=== PATIENT | female | born 1940 | race Caucasian/White ===

== ENCOUNTER 2016-08-07 18:46 | Inpatient (IN) ==
[2016-08-07] MEDS ORDERED: methylPREDNISolone 125 MG/2 ML VIAL IVP ONE (18:52)
[2016-08-07] MEDS ORDERED: Ipratropium/Albuterol Neb 3 ML IH ONE (18:52)
--- NOTE | 2016-08-07 18:58 | Emergency Department Note ---
Disposition Clinical Impression: Acute exacerbation of chronic obstructive airways disease Disposition: Admitted As Inpatient Condition: Fair Referrals: NO,PCP [Primary Care Provider] - Forms: ED Satisfaction Letter Time of Disposition: 20:44 SOB HPI - General Chief Complaint: ED Shortness of Breath/Dyspnea Stated Complaint: SHERLY/COUGH/CP Time Seen by Provider: 08/07/16 18:50 Nursing Notes Reviewed: Yes Vital Signs Reviewed: Yes - History of Present Illness 75-year-old female dependent on 2 L of oxygen, history of COPD presents with shortness of breath and chest pain she has been having symptoms for about a week , she reports worsening shortness of breath today at approximately 12:00. Patient reports wheezes, productive cough productive of green and yellow mucus. She has had intermittent subjective fevers at home as well. Patient is taking no antibiotics for infection. Pt Subjective Complaint: shortness of breath Onset (ago): week(s) (1) Context: recent illness Severity: moderate Consistency/Duration: intermittent Improves with: oxygen Worsens with: exertion, coughing Known history of: COPD Associated symptoms: Reports: chest pain, fever, cough, wheezing, sputum production, orthopnea Treatment prior to arrival: oxygen Cough present: Yes Cough Description: Voluntary Cough Frequency: Intermittent Sputum production: Yes Sputum Amount: Scant Sputum Color: Clear - Related Data Home oxygen amount: 2 liters Home Medications Medication Instructions Recorded Confirmed Albuterol Sulfate 2.5 mg PO TID 09/05/15 08/07/16 Albuterol Sulfate [Albuterol 2 puff IH Q4H PRN 09/05/15 08/07/16 Inhaler] Alendronate Sodium [Fosamax] 35 mg PO QWEEK 09/05/15 08/07/16 Amlodipine Besylate 2.5 mg PO DAILY 09/05/15 08/07/16 Atorvastatin [Lipitor] 10 mg PO HS 09/05/15 08/07/16 Benzocaine 20% [Orajel] 9 gm MM Q6H 09/05/15 08/07/16 Budesonide/Formoterol 160/4.5 2 puff IH BIDR 09/05/15 08/07/16 [Symbicort 160/4.5] Clobetasol Propionate 0.05% 1 appl TP BID 09/05/15 08/07/16 [Temovate] Cranberry 300 mg PO DAILY 09/05/15 08/07/16 Ergocalciferol (VITAMIN D2) 50,000 unit PO QWEEK 09/05/15 08/07/16 [Vitamin D2] Fenofibrate [Tricor] 54 mg PO DAILY 09/05/15 08/07/16 Furosemide [Lasix] 20 mg PO DAILY 09/05/15 08/07/16 Gabapentin [Neurontin] 100 mg PO TID 09/05/15 08/07/16 GlipiZIDE [Glucotrol] 2.5 mg PO DAILY 09/05/15 08/07/16 Hydrocodone/Acetaminophen [Sixes 1 tab PO Q6HR PRN 09/05/15 08/07/16 7.5-325 Tablet] Hydroxyzine HCl 25 mg PO TID 09/05/15 08/07/16 Isosorbide MONOnitrate [Isosorbide 60 mg PO DAILY 09/05/15 08/07/16 Mononitrate ER] Levothyroxine Sodium [Tirosint] 175 mcg PO DAILY 09/05/15 08/07/16 Metoprolol [Lopressor] 50 mg PO BID 09/05/15 08/07/16 Nitroglycerin [Nitrostat] 0.4 mg SL Q5-10MIN PRN 09/05/15 08/07/16 Nystatin SUSP [Mycostatin 4 ml PO QID 09/05/15 08/07/16 Suspension] Ondansetron HCl [Zofran] 4 mg PO Q8HR PRN 09/05/15 08/07/16 Pantoprazole Sodium [Protonix] 40 mg PO DAILY 09/05/15 08/07/16 Potassium Chloride [K-Tab ER] 20 meq PO BID 09/05/15 08/07/16 Primidone [Mysoline] 50 mg PO HS 09/05/15 08/07/16 Ranitidine HCl [Zantac] 150 mg PO BID 09/05/15 08/07/16 Sertraline HCl [Zoloft] 100 mg PO BID 09/05/15 08/07/16 Warfarin [Coumadin] 5 mg PO QWEEK MDD Wednesday09/05/15 08/07/16 Dicyclomine [Bentyl] 10 mg PO QID PRN 08/07/16 08/07/16 Oxygen 2 l .ROUTE AD 08/07/16 08/07/16 Warfarin [Coumadin] 2.5 mg PO 6XW MDD 08/07/16 08/07/16 SUN,MON,TUES,WED,THURS,SAT Previous Rx's Medication Instructions Recorded Loperamide [Imodium] 2 mg PO Q4HR PRN #18 capsule 09/05/15 Allergies Allergy/AdvReac Type Severity Reaction Status Date / Time aspirin AdvReac Anaphylaxis Verified 09/04/15 20:11 metoclopramide [From Reglan] AdvReac See Verified 09/04/15 20:11 Comments prednisone AdvReac See Verified 09/04/15 20:11 Comments Review of Systems: A 14 point ROS was obtained and was negative except as per below or as documented in the HPI. Constitutional: Denies: fever, chills, weakness, weight change Eyes: Denies: eye pain, eye discharge, vision change ENT: Denies: ear pain, throat pain, hearing loss, epistaxis, congestion, Cardiovascular: chest pain, Denies: palpitations, dyspnea on exertion, edema, syncope Respiratory: +cough, dyspnea, wheezes Denies: hemoptysis, stridor Gastrointestinal: Denies: abdominal pain, nausea, vomiting. diarrhea, constipation, hematemesis, hematochezia Genitourinary: Denies: urgency, dysuria, frequency, hematuria Musculoskeletal: Denies: back pain, neck pain, arthralgia, myalgia Integumentary: Denies: rash, abrasion, lesions Neurological: Denies: headache, weakness, numbness, paresthesias, confusion, abnormal gait Psychiatric: Denies: anxiety, depression, suicidal thoughts, homicidal thoughts , Endocrine: Denies: fatigue Hematological/Lymphatic: Denies: easy bleeding, easy bruising Allergic/Immunologic: Denies: facial swelling, urticaria All systems ED: reviewed and negative except as stated. Past Medical History - Past Medical History Attestation: Yes The following information was validated with the patient. Source: patient Medical history: Reports: diabetes, hypertension Psychiatric history: Reports: no psych history - Social History Smoking Status: Never smoker Smokeless Tobacco Status: No Alcohol use: Reports: none Drug use: Reports: none Physical Exam General: This is a pleasant elderly female who appears in mild to moderate respiratory distress, appears her stated age. Head: NCAT, no lesions Eyes: sclera anicteric, conjunctiva normal, PERRLA bilaterally, EOMI Bilaterally Ears: normal inspection, external ear wnl Nose: nasal septum nondeviated, sinuses nontender Throat: good dentition, mucous membranes moist Neck: no lymphadenopathy, trachea midline no deviation, no JVD Resp: diFuse coarse inspiratory and expiratory wheezes. CV: RRR, normal S1 and S2, no m/g/r, Pulses +2 Rad, +2 DP/PT Abdomen: Soft, NTND, no hepatosplenomegaly, no hernias, Negative Rovsing's sign , Negative Marroquin's sign Back: normal inspection, no tenderness to palpation, Negative CVA tenderness bilaterally Neuro: A&O3, CN II-XII grossly intact bilaterally, no motor or sensory deficits bilaterally, gait normal, GCS 15 [id number] Ext: normal inspection, symmetric Active and Passive ROM UE and LE bilaterally , no pedal edema bilaterally Psych: normal mood, normal affect Skin: No rashes, skin warm, dry, intact Course Course Narrative: 75-year-old female appears to be into P exacerbation, will check EKG troponin basic lab work chest x-ray do an absolute Medrol reassess - Reevaluation(s) Reevaluation #1: Admitted to Dr Girard, AECOPD in stable condition. Time: 20:42 Vital Signs Temperature 98.6 F 08/07/16 18:49 Pulse Rate 79 08/07/16 18:49 Respiratory Rate 20 08/07/16 18:49 Blood Pressure 188/91 08/07/16 18:49 O2 Sat by Pulse Oximetry 95 08/07/16 18:49 Temperature 98.6 F 08/07/16 18:49 Pulse Rate 79 08/07/16 18:49 Respiratory Rate 20 08/07/16 19:18 Blood Pressure 188/91 08/07/16 18:49 O2 Sat by Pulse Oximetry 99 08/07/16 19:18 Oxygen Delivery Oxygen Delivery Room Air Shortness of Breath/Dyspnea - [facility] Narrative Medical decision making narrative: 75-year-old female shortness breath wheezing for one week, admitted for acute exacerbation of COPD given decreased from function from her baseline, requiring more oxygen 3 L at home than her baseline 2 L, chest x-ray negative white blood count normal, lactate normal. Admitted to hospitalist Dr. Girard in stable condition - Differential Diagnosis Likely: acute exacerbation of chronic obstructive airways disease, congestive heart failure, pulmonary embolism - Medical Records Medical records reviewed: Yes I reviewed the patient's medical records. - Lab Data Lab results reviewed: Yes I reviewed the patient's lab results. Result diagrams: 08/07/16 19:14 08/07/16 19:14 Lab Results 08/07/16 08/07/16 08/07/16 Range/Units 19:14 19:14 19:14 WBC 5.0 (4.3-11.1) K/mcL RBC 4.20 (3.82-4.97) M/mcL Hgb 12.3 (11.5-15.4) g/dL Hct 37.8 (35.3-44.9) % MCV 90.0 (83.0-100.0) fL MCH 29.3 (28.0-33.3) pg MCHC 32.5 (31.6-35.5) g/dL RDW 14.5 (11.5-14.5) % Plt Count 117 L (140-400) K/mcL MPV 9.5 (9.4-12.4) fL Immature Gran % 0.6 (0-4) % Seg Neutrophils % 57.7 % Lymphocytes % 34.7 % Monocytes % 4.4 % Eosinophils % 2.4 % Basophils % 0.2 % Neutrophils # 2.9 (1.6-8.9) K/mcL Lymphocytes # 1.7 (0.6-4.6) K/mcL Monocytes # 0.2 (0.0-1.3) K/mcL Eosinophils # 0.1 (0.0-0.6) K/mcL Basophils # 0.0 (0.0-0.2) K/mcL Immature Plt Fraction 2.5 (1.1-6.1) % PT 21.2 H (9.4-12.1) Seconds INR 1.9 Sodium 140 (136-145) mEq/L Potassium 3.6 (3.5-4.5) mEq/L Chloride 103 (98-109) mEq/L Carbon Dioxide 26 (19-29) mEq/L BUN 11 (7-20) mg/dL Creatinine 0.71 (0.57-1.11) mg/dL Est GFR ( Amer) > 60 (> 60) Est GFR (Non-Af Amer) > 60 (> 60) BUN/Creatinine Ratio 15 (6-26) Glucose 134 H (70-99) mg/dL Calculated Osmolality 291 (280-300) Lactic Acid (0.5-2.2) mmol/L Calcium 9.2 (8.6-10.8) mg/dL Troponin I (0-0.03) ng/mL B-Natriuretic Peptide (0-100) pg/mL 08/07/16 08/07/16 08/07/16 Range/Units 19:14 19:14 19:14 WBC (4.3-11.1) K/mcL RBC (3.82-4.97) M/mcL Hgb (11.5-15.4) g/dL Hct (35.3-44.9) % MCV (83.0-100.0) fL MCH (28.0-33.3) pg MCHC (31.6-35.5) g/dL RDW (11.5-14.5) % Plt Count (140-400) K/mcL MPV (9.4-12.4) fL Immature Gran % (0-4) % Seg Neutrophils % % Lymphocytes % % Monocytes % % Eosinophils % % Basophils % % Neutrophils # (1.6-8.9) K/mcL Lymphocytes # (0.6-4.6) K/mcL Monocytes # (0.0-1.3) K/mcL Eosinophils # (0.0-0.6) K/mcL Basophils # (0.0-0.2) K/mcL Immature Plt Fraction (1.1-6.1) % PT (9.4-12.1) Seconds INR Sodium (136-145) mEq/L Potassium (3.5-4.5) mEq/L Chloride (98-109) mEq/L Carbon Dioxide (19-29) mEq/L BUN (7-20) mg/dL Creatinine (0.57-1.11) mg/dL Est GFR ( Amer) (> 60) Est GFR (Non-Af Amer) (> 60) BUN/Creatinine Ratio (6-26) Glucose (70-99) mg/dL Calculated Osmolality (280-300) Lactic Acid 1.5 (0.5-2.2) mmol/L Calcium (8.6-10.8) mg/dL Troponin I 0.00 (0-0.03) ng/mL B-Natriuretic Peptide 115 H (0-100) pg/mL - Radiology Data Radiology results reviewed: Yes I reviewed the patient's radiology results. Chest X-Ray 08/07/16 18:52 IMPRESSION: No acute cardiopulmonary disease. D/ / 08/07/2016 19:28:39 Ruben Bradshaw MD / [facility] Interpreting Provider: Ruben Bradshaw MD - EKG Data EKG attestation: Yes I reviewed and interpreted this EKG. EKG shows normal: Reports: sinus rhythm (60 bpm DC 141 QRS 90 QTc 425 to continue with elevations or depressions.) Rate: Reports: normal Rhythm: Reports: NSR Interpretation: Reports: unchanged when compared to prior tracing (date) ( Previous EKG 06/2015) - Core Measures AMI Core Measures Followed: No Measure Exclusions: contraindicated (Anaphylactic reaction to aspirin.) Attestation Statement - Attestation Attestation: I examined this patient and my medical decision-making was reviewed with the NETWORK STRATEGIST/PA/Advanced Practice Nurse/Resident Physician. I agree with the documented findings, disposition and treatment plan as described except to the extent set forth below. Patient to the emergency department with a chief complaint of difficulty in breathing. Transfer from urgent care. Has been coughing and not feeling well. Has some pain in her upper chest. Sent for evaluation. Exam shows her awake and alert. Diffuse expiratory wheezing. No reproducible pain in her chest. Abdomen soft. Plan. Nebs and steroids. Chest x-ray and cardiac workup.
[2016-08-07 19:29] LABS: Basophils % 0.2 %; Eosinophils # 0.1 K/mcL (0.0-0.6); Eosinophils % 2.4 %; Hematocrit 37.8 % (35.3-44.9); Hemoglobin 12.3 g/dL (11.5-15.4); Immature Granulocytes % 0.6 % (0-4); Immature Platelets 2.5 % (1.1-6.1); Lymphocytes # 1.7 K/mcL (0.6-4.6); Lymphocytes % 34.7 %; Mean Corpuscular HGB Conc 32.5 g/dL (31.6-35.5); Mean Corpuscular Hemoglobin 29.3 pg (28.0-33.3); Mean Platelet Volume 9.5 fL (9.4-12.4); Monocytes # 0.2 K/mcL (0.0-1.3); Monocytes % 4.4 %; Neutrophils # 2.9 K/mcL (1.6-8.9); Platelet Count 117 K/mcL (140-400); Red Cell Distribution Width 14.5 % (11.5-14.5); Segmented Neutrophils % 57.7 %
[2016-08-07 19:35] LABS: INR 1.9; Prothrombin Time 21.2 Seconds (9.4-12.1)
[2016-08-07 19:43] LABS: BUN/Creatinine Ratio 15 (6-26); Blood Urea Nitrogen 11 mg/dL (7-20); Calcium 9.2 mg/dL (8.6-10.8); Carbon Dioxide 26 mEq/L (19-29); Chloride 103 mEq/L (98-109); Glucose 134 mg/dL (70-99); Osmolality,Calculated 291 (280-300); Potassium 3.6 mEq/L (3.5-4.5); Sodium 140 mEq/L (136-145); eGFR For African Americans > 60 (> 60); eGFR For Non-African Americans > 60 (> 60)
[2016-08-07] MEDS ORDERED: Albuterol 2.5 MG/3 ML NEBULIZER IH PRN (22:00)
[2016-08-07] MEDS ORDERED: Nitroglycerin 0.4 MG TAB.SUBL SL PRN (22:01)
[2016-08-07] MEDS ORDERED: Acetaminophen 325 MG TABLET PO PRN (22:08)
[2016-08-07] MEDS ORDERED: Ondansetron ODT 4 MG TAB.RAPDIS SL PRN (22:08)
[2016-08-07] MEDS ORDERED: Naloxone 0.4 MG/ML INJ IVP PRN (22:08)
[2016-08-07] MEDS ORDERED: Ondansetron 4 MG/2 ML VIAL IVP PRN (22:08)
[2016-08-07] MEDS: *HR* HYDROcodone/Acet 7.5/325 mg TABLET PO PRN (22:55)
--- NOTE | 2016-08-07 22:55 | Internal Med History&Physical ---
Date of Encounter: 08/07/16 Time of Encounter: 21:55 Internal Medicine - H&P: HPI Chief complaint: Shortness of breath, cough x 2 weeks Admitted From: Emergency Dept Plans for Post Hospital Care: Home History of present illness: Ms. Trinidad is a 75 year old female with oxygen-dependent copd, using home oxygen 2L/min was brought in by her family for evaluation of progressive shortness o breath of 2 weeks duration. No associated fever, chills and rigors. She is presentating now because the past 2 days, she could barely breath , work of breathing is taking its toll on her. She reports wheezing, and a productive cough of initially clear but now greenish-yellow. No sore throat or glandular enlargement in the neckShe has not taken any antibiotic. She is uptodate with influenza and pneumococcal vaccination. No sick contact, no recent travel. She is FULL CODE as per discussion. She nominates her , Temo Trinidad ([phone]) as her NOK/POA. Medical history: Reports: diabetes, hypertension, HLD, CAD, GERD, YOMI, DVT/PE, depression, osteoporosis Past surgical hx: total thyroidectomy on thyroxine replacement. Psychiatric history: Reports: no psych history Smoking Status: Never smoker Smokeless Tobacco Status: No Alcohol use: Reports: none Drug use: Reports: none Family hx: HTN, DM2. ROS: A 10-point ROS was performed, postives and relevant negatives are detailed , system-symptom not mentioned is assumed negative unless otherwise stated. Vital Signs Temperature 98.6 F 08/07/16 18:49 Pulse Rate 79 08/07/16 18:49 Respiratory Rate 20 08/07/16 18:49 Blood Pressure 188/91 08/07/16 18:49 O2 Sat by Pulse Oximetry 95 08/07/16 18:49 Temperature 98.6 F 08/07/16 18:49 Pulse Rate 79 08/07/16 18:49 Respiratory Rate 20 08/07/16 19:18 Blood Pressure 188/91 08/07/16 18:49 O2 Sat by Pulse Oximetry 99 08/07/16 19:18 Not pale, anicteric, afebrile, acyanotic,in some respiratory distress evident in tachypnea, inability to speak in full sentences. Morbidly obese. Moist mucosa, not pale, anicteric, afebrile, acyanotic. Trachea is central, no subcutaneous emphysema. No cervical or jugular enlargement. Chest: Scattered expiratory wheezing, left basilar crackles posterior. Heart: RRR, HS1/2, systolic murmur, aortic. Abdomen: obese, non-distended, soft, non-tender,no masses. STATE ASSESSED PROPERTIES DIRECTOR: AAO X 3, no gross focal neurological deficits. Skin: No active skin lesion Extremities: Trace pedal edema, normal pedal pulses, no calf tenderness. There is scaly skin lesions of both fet. consistent with stasis dermatitis. 08/07/16 08/07/16 08/07/16 Range/Units 19:14 19:14 19:14 WBC 5.0 (4.3-11.1) K/mcL RBC 4.20 (3.82-4.97) M/mcL Hgb 12.3 (11.5-15.4) g/dL Hct 37.8 (35.3-44.9) % MCV 90.0 (83.0-100.0) fL MCH 29.3 (28.0-33.3) pg MCHC 32.5 (31.6-35.5) g/dL RDW 14.5 (11.5-14.5) % Plt Count 117 L (140-400) K/mcL MPV 9.5 (9.4-12.4) fL Immature Gran % 0.6 (0-4) % Seg Neutrophils % 57.7 % Lymphocytes % 34.7 % Monocytes % 4.4 % Eosinophils % 2.4 % Basophils % 0.2 % Neutrophils # 2.9 (1.6-8.9) K/mcL Lymphocytes # 1.7 (0.6-4.6) K/mcL Monocytes # 0.2 (0.0-1.3) K/mcL Eosinophils # 0.1 (0.0-0.6) K/mcL Basophils # 0.0 (0.0-0.2) K/mcL Immature Plt Fraction 2.5 (1.1-6.1) % PT 21.2 H (9.4-12.1) Seconds INR 1.9 Sodium 140 (136-145) mEq/L Potassium 3.6 (3.5-4.5) mEq/L Chloride 103 (98-109) mEq/L Carbon Dioxide 26 (19-29) mEq/L BUN 11 (7-20) mg/dL Creatinine 0.71 (0.57-1.11) mg/dL Est GFR ( Amer) > 60 (> 60) Est GFR (Non-Af Amer) > 60 (> 60) BUN/Creatinine Ratio 15 (6-26) Glucose 134 H (70-99) mg/dL Calculated Osmolality 291 (280-300) Lactic Acid (0.5-2.2) mmol/L Calcium 9.2 (8.6-10.8) mg/dL Troponin I (0-0.03) ng/mL B-Natriuretic Peptide (0-100) pg/mL 08/07/16 08/07/16 08/07/16 Range/Units 19:14 19:14 19:14 WBC (4.3-11.1) K/mcL RBC (3.82-4.97) M/mcL Hgb (11.5-15.4) g/dL Hct (35.3-44.9) % MCV (83.0-100.0) fL MCH (28.0-33.3) pg MCHC (31.6-35.5) g/dL RDW (11.5-14.5) % Plt Count (140-400) K/mcL MPV (9.4-12.4) fL Immature Gran % (0-4) % Seg Neutrophils % % Lymphocytes % % Monocytes % % Eosinophils % % Basophils % % Neutrophils # (1.6-8.9) K/mcL Lymphocytes # (0.6-4.6) K/mcL Monocytes # (0.0-1.3) K/mcL Eosinophils # (0.0-0.6) K/mcL Basophils # (0.0-0.2) K/mcL Immature Plt Fraction (1.1-6.1) % PT (9.4-12.1) Seconds INR Sodium (136-145) mEq/L Potassium (3.5-4.5) mEq/L Chloride (98-109) mEq/L Carbon Dioxide (19-29) mEq/L BUN (7-20) mg/dL Creatinine (0.57-1.11) mg/dL Est GFR ( Amer) (> 60) Est GFR (Non-Af Amer) (> 60) BUN/Creatinine Ratio (6-26) Glucose (70-99) mg/dL Calculated Osmolality (280-300) Lactic Acid 1.5 (0.5-2.2) mmol/L Calcium (8.6-10.8) mg/dL Troponin I 0.00 (0-0.03) ng/mL B-Natriuretic Peptide 115 H (0-100) pg/mL Chest X-Ray No acute cardiopulmonary disease. EKG: NSR, normal EKG. imp COPD EXACERBATION Acute on chronic respiratory failure Chronic morbidities. Oxygen-dependent COPD. HTN DM2 Hypothroidism Osteoporosis Chronic stasis dermatitis Depression Morbid obesity. Chronic aticoagualtion with wARFARN FOR DVT/PE history plan standard COPD care business services coordinator and pT CONSULT for discharge planning. On coumadin for hx of DVT/PE. GI prophylaxis with protonix Add low dose insulin sliding scale. Continue other medication of chronic morbidities. Past Med Surg Social Fam HX - Past Medical History Medical history: COPD, diabetes, hypertension, other Psychiatric history: no psych history - Past Surgical History Surgical History: appendectomy, cholecystectomy, hysterectomy - Social History Smoking Status: Never smoker Smokeless Tobacco Status: No Alcohol use: none Drug use: none - Family History Father Adopted: [place]: STEVEN Family Member Ethnicity: Non- Living Status: Age at : 72 Cause of : PROSTATE CA Hx Family Cardiac Disorders: Yes (NC) Hx Family Respiratory Disorders: Yes (Emphysema) Hx Family Cancer: Yes Hx Family GI Disorders: No Hx Family Endocrine Disorder: Yes (DM) Hx Family Neuromuscular Disorders: No Hx Family Neurologic Disorders: No Hx Family HEENT Disorders: No Hx Family Autoimmune Disorders: No Internal Medicine - H&P: Meds Albuterol Sulfate 2.5 mg PO TID 09/05/15 [History] Albuterol Sulfate [Albuterol Inhaler] 2 puff IH Q4H PRN 09/05/15 [History] Alendronate Sodium [Fosamax] 35 mg PO QWEEK 09/05/15 [History] Amlodipine Besylate 2.5 mg PO DAILY 09/05/15 [History] Atorvastatin [Lipitor] 10 mg PO HS 09/05/15 [History] Benzocaine 20% [Orajel] 9 gm MM Q6H 09/05/15 [History] Budesonide/Formoterol 160/4.5 [Symbicort 160/4.5] 2 puff IH BIDR 09/05/15 [ History] Clobetasol Propionate 0.05% [Temovate] 1 appl TP BID 09/05/15 [History] Cranberry 300 mg PO DAILY 09/05/15 [History] Ergocalciferol (VITAMIN D2) [Vitamin D2] 50,000 unit PO QWEEK 09/05/15 [History] Fenofibrate [Tricor] 54 mg PO DAILY 09/05/15 [History] Furosemide [Lasix] 20 mg PO DAILY 09/05/15 [History] Gabapentin [Neurontin] 100 mg PO TID 09/05/15 [History] GlipiZIDE [Glucotrol] 2.5 mg PO DAILY 09/05/15 [History] Hydrocodone/Acetaminophen [[place] 7.5-325 Tablet] 1 tab PO Q6HR PRN 09/05/15 [ History] Hydroxyzine HCl 25 mg PO TID 09/05/15 [History] Isosorbide MONOnitrate [Isosorbide Mononitrate ER] 60 mg PO DAILY 09/05/15 [ History] Levothyroxine Sodium [Tirosint] 175 mcg PO DAILY 09/05/15 [History] Loperamide [Imodium] 2 mg PO Q4HR PRN #18 capsule 09/05/15 [Rx] Metoprolol [Lopressor] 50 mg PO BID 09/05/15 [History] Nitroglycerin [Nitrostat] 0.4 mg SL Q5-10MIN PRN 09/05/15 [History] Nystatin SUSP [Mycostatin Suspension] 4 ml PO QID 09/05/15 [History] Ondansetron HCl [Zofran] 4 mg PO Q8HR PRN 09/05/15 [History] Pantoprazole Sodium [Protonix] 40 mg PO DAILY 09/05/15 [History] Potassium Chloride [K-Tab ER] 20 meq PO BID 09/05/15 [History] Primidone [Mysoline] 50 mg PO HS 09/05/15 [History] Ranitidine HCl [Zantac] 150 mg PO BID 09/05/15 [History] Sertraline HCl [Zoloft] 100 mg PO BID 09/05/15 [History] Warfarin [Coumadin] 5 mg PO QWEEK MDD Wednesday09/05/15 [History] Dicyclomine [Bentyl] 10 mg PO QID PRN 08/07/16 [History] Oxygen 2 l .ROUTE AD 08/07/16 [History] Warfarin [Coumadin] 2.5 mg PO 6XW MDD SUN,MON,TU,WED,THURS,SAT 08/07/16 [ History] Allergies aspirin Adverse Reaction (Verified 09/04/15 20:11) Anaphylaxis metoclopramide [From Reglan] Adverse Reaction (Verified 09/04/15 20:11) See Comments prednisone Adverse Reaction (Verified 09/04/15 20:11) See Comments All Systems PM: A 10-system review of systems was performed and is negative for pertinent findings except as documented above in the HPI. - Constitutional Vitals: Temp Pulse Resp BP Pulse Ox 98.1 F 85 18 122/61 98 08/07/16 21:46 08/07/16 21:46 08/07/16 21:46 08/07/16 21:46 08/07/16 21:46 Internal Med - H&P Results - Labs CBC & Chem 7: 08/07/16 19:14 08/07/16 19:14 - VTE Reasons for not Prescribing Prophylaxis: Not indicated-Anticoagulated or INR therapeutic
[2016-08-07] MEDS: Benzocaine 20% 9 GM GEL..GRAM. MM SCH (22:57)
[2016-08-07] MEDS ORDERED: *HR* Dextrose 50 % in Water (Syg) 50 ML SYRINGE IVP PRN (22:59)
[2016-08-07] MEDS ORDERED: Dextrose Gel 15 GM PO PRN ×2 (22:59)
[2016-08-07] MEDS ORDERED: D5% in Water 1,000 ML IV PRN (22:59)
[2016-08-07] MEDS: Ipratropium/Albuterol Neb 3 ML IH SCH (23:26)
[2016-08-07] MEDS ORDERED: *HR* Warfarin 5 MG TABLET PO SCH (23:45)
[2016-08-07] MEDS: MethylPREDNISolone 40 MG/ML VIAL IVP SCH (23:54)
[2016-08-08] MEDS: Ipratropium/Albuterol Neb 3 ML IH SCH ×4 (04:26→22:53)
[2016-08-08 04:32] LABS: INR 1.8; Prothrombin Time 19.7 Seconds (9.4-12.1)
[2016-08-08] MEDS: Benzocaine 20% 9 GM GEL..GRAM. MM SCH ×4 (05:51→23:39)
[2016-08-08] MEDS: Isosorbide MONOnitrate (24 HR) 60 MG TAB.ER.24H PO SCH (07:58)
[2016-08-08] MEDS: Furosemide 20 MG TABLET PO SCH (07:58)
[2016-08-08] MEDS: Fenofibrate 54 MG TABLET PO SCH (07:59)
[2016-08-08] MEDS: Gabapentin 100 MG CAPSULE PO SCH ×3 (07:59→19:59)
[2016-08-08] MEDS: Famotidine 20 MG TABLET PO SCH ×2 (07:59→19:59)
[2016-08-08] MEDS: *HR* GlipiZIDE 5 MG TABLET PO SCH (07:59)
[2016-08-08] MEDS: amLODIPine 5 MG TABLET PO SCH (08:00)
[2016-08-08] MEDS: hydrOXYzine pamoate 25 MG CAPSULE PO SCH ×3 (08:00→19:59)
[2016-08-08] MEDS: Insulin LISPRO 300 UNITS/3 ML VIAL SQ SCH ×3 (08:01→17:06)
[2016-08-08] MEDS: MethylPREDNISolone 40 MG/ML VIAL IVP SCH ×3 (08:01→23:32)
[2016-08-08] MEDS: Nystatin SUSP 5 ML UD.LIQ PO SCH ×4 (08:02→20:00)
[2016-08-08] MEDS: Budesonide/Formoterol 160/4.5 MDI IH SCH ×2 (08:15→22:55)
[2016-08-08] MEDS: *HR* HYDROcodone/Acet 7.5/325 mg TABLET PO PRN ×2 (11:46→17:44)
--- NOTE | 2016-08-08 14:10 | Internal Med Progress Note ---
Date of Encounter: 08/08/16 Time of Encounter: 14:08 - Assessment and plan (1) Acute exacerbation of chronic obstructive airways disease Current Visit: Yes Status: Acute Assessment and plan: Acute on chronic respiratory failure secondary to acute COPD exacerbation due to bacterial bronchitis Continue Rocephin and Solu-Medrol, duo nebs and oxygen therapy (2) Chronic respiratory failure Current Visit: No Status: Chronic Qualifiers: Respiratory failure complication: unspecified whether with hypoxia or hypercapnia Qualified Code(s): J96.10 - Chronic respiratory failure, unspecified whether with hypoxia or hypercapnia (3) Diabetes mellitus type 2, noninsulin dependent Current Visit: No Status: Chronic Assessment and plan: Continue insulin sliding scale and glipizide (4) History of DVT (deep vein thrombosis) Current Visit: No Status: Chronic Assessment and plan: Continue Coumadin and recheck INR in the morning (5) Hypertension, essential Current Visit: No Status: Chronic Assessment and plan: Stable High risk due to respiratory failure - Time Spent With Patient Greater than 35 minutes - Subjective Interval history: The patient is feeling less short of breath, denies any chest pain as it was before, no fevers overnight, no abdominal pain, no dysuria. No diarrhea - Constitutional Vitals: Temp Pulse Resp BP Pulse Ox 98.3 F 92 16 131/63 94 L 08/08/16 11:07 08/08/16 11:07 08/08/16 11:07 08/08/16 11:07 08/08/16 11:07 General appearance: Present: A&O X 3, obese - Head Head exam: Present: atraumatic, normocephalic - Eye Eye exam: Present: PERRL, conjuntiva pink, sclera anicteric Pupils: Present: PERRL - Neck Neck exam general surgery: Present: supple, trachea midline. Absent: lymphadenopathy - Respiratory Respiratory exam: Present: CTAB, wheezes (Mild diffuse wheezing). Absent: accessory muscle use, rales, rhonchi - Cardiovascular Cardiovascular exam: Present: RRR, +S1, +S2. Absent: diastolic murmur, gallop, rubs, systolic murmur - GI/Abdominal GI/Abdominal exam: Present: normal bowel sounds, soft, no peritoneal signs. Absent: distended, tenderness - Extremities Exam Extremities exam: Present: warm, radial pulses palpable and symetrical. Absent : calf tenderness, cyanotic, pedal edema - Neurological Exam Neurological exam: Present: CN II-XII intact, oriented X3, no focal deficits. Absent: pronater drift, facial droop, speech deficit - Skin Skin exam: Present: dry, intact Internal Medicine: Result - Labs CBC & Chem 7: 08/07/16 19:14 08/07/16 19:14 - ABG Interpretation ABG results: PT/INR, D-dimer PT 19.7 Seconds (9.4-12.1) H 08/08/16 03:49 - VTE Reasons for not Prescribing Prophylaxis: Not indicated-Anticoagulated or INR therapeutic Consult Discharge Plan - Plan Referrals: Jermain Mtz MD [Primary Care Provider] -
[2016-08-08] MEDS ORDERED: *HR* Warfarin 2.5 MG TABLET PO SCH (18:00)
[2016-08-08] MEDS ORDERED: Primidone 50 MG TABLET PO SCH (21:00)
[2016-08-08] MEDS ORDERED: Insulin LISPRO 300 UNITS/3 ML VIAL SQ SCH (21:00)
[2016-08-09 03:14] LABS: INR 2.2; Prothrombin Time 24.5 Seconds (9.4-12.1)
[2016-08-09] MEDS: Ipratropium/Albuterol Neb 3 ML IH SCH ×2 (05:06→11:27)
[2016-08-09] MEDS: Benzocaine 20% 9 GM GEL..GRAM. MM SCH ×2 (05:33→08:30)
[2016-08-09] MEDS: Insulin LISPRO 300 UNITS/3 ML VIAL SQ SCH ×2 (08:26→11:52)
[2016-08-09] MEDS: MethylPREDNISolone 40 MG/ML VIAL IVP SCH (08:26)
[2016-08-09] MEDS: Fenofibrate 54 MG TABLET PO SCH (08:27)
[2016-08-09] MEDS: amLODIPine 5 MG TABLET PO SCH (08:27)
[2016-08-09] MEDS: Nystatin SUSP 5 ML UD.LIQ PO SCH ×2 (08:27→11:52)
[2016-08-09] MEDS: Famotidine 20 MG TABLET PO SCH (08:28)
[2016-08-09] MEDS: Furosemide 20 MG TABLET PO SCH (08:28)
[2016-08-09] MEDS: *HR* GlipiZIDE 5 MG TABLET PO SCH (08:28)
[2016-08-09] MEDS: Isosorbide MONOnitrate (24 HR) 60 MG TAB.ER.24H PO SCH (08:28)
[2016-08-09] MEDS: hydrOXYzine pamoate 25 MG CAPSULE PO SCH (08:28)
[2016-08-09] MEDS: Gabapentin 100 MG CAPSULE PO SCH (08:28)
[2016-08-09] MEDS: *HR* HYDROcodone/Acet 7.5/325 mg TABLET PO PRN (10:19)
[2016-08-09 11:02] VITALS: BP 128/77
[2016-08-09] MEDS: Budesonide/Formoterol 160/4.5 MDI IH SCH (11:28)
--- NOTE | 2016-08-09 13:13 | Discharge Summary ---
Date of Encounter: 08/09/16 Time of Encounter: 13:13 - Discharge Diagnosis (1) Acute exacerbation of chronic obstructive airways disease Priority: Primary Status: Acute Comments: Acute on chronic respiratory failure secondary to acute COPD exacerbation due to bacterial bronchitis (2) Chronic respiratory failure Priority: Primary Status: Chronic Qualifiers: Respiratory failure complication: unspecified whether with hypoxia or hypercapnia Qualified Code(s): J96.10 - Chronic respiratory failure, unspecified whether with hypoxia or hypercapnia (3) Diabetes mellitus type 2, noninsulin dependent Priority: Secondary Status: Chronic (4) History of DVT (deep vein thrombosis) Priority: Secondary Status: Chronic (5) Hypertension, essential Priority: Secondary Status: Chronic - Discharge Medications Prescriptions: Amoxicillin/Clavulanate [Augmentin] 875 mg PO BIDWM #12 tablet Furosemide [Lasix] 40 mg PO DAILY #30 tablet PredniSONE 10 mg PO DAILY 18 Days Home Medications: Albuterol Sulfate 2.5 mg PO TID 09/05/15 [History] Albuterol Sulfate [Albuterol Inhaler] 2 puff IH Q4H PRN 09/05/15 [History] Alendronate Sodium [Fosamax] 35 mg PO QWEEK 09/05/15 [History] Amlodipine Besylate 2.5 mg PO DAILY 09/05/15 [History] Atorvastatin [Lipitor] 10 mg PO HS 09/05/15 [History] Benzocaine 20% [Orajel] 9 gm MM Q6H 09/05/15 [History] Budesonide/Formoterol 160/4.5 [Symbicort 160/4.5] 2 puff IH BIDR 09/05/15 [ History] Clobetasol Propionate 0.05% [Temovate] 1 appl TP BID 09/05/15 [History] Cranberry 300 mg PO DAILY 09/05/15 [History] Ergocalciferol (VITAMIN D2) [Vitamin D2] 50,000 unit PO QWEEK 09/05/15 [History] Fenofibrate [Tricor] 54 mg PO DAILY 09/05/15 [History] Gabapentin [Neurontin] 100 mg PO TID 09/05/15 [History] GlipiZIDE [Glucotrol] 2.5 mg PO DAILY 09/05/15 [History] Hydrocodone/Acetaminophen [[place] 7.5-325 Tablet] 1 tab PO Q6HR PRN 09/05/15 [ History] Hydroxyzine HCl 25 mg PO TID 09/05/15 [History] Isosorbide MONOnitrate [Isosorbide Mononitrate ER] 60 mg PO DAILY 09/05/15 [ History] Levothyroxine Sodium [Tirosint] 175 mcg PO DAILY 09/05/15 [History] Loperamide [Imodium] 2 mg PO Q4HR PRN #18 capsule 09/05/15 [Rx] Metoprolol [Lopressor] 50 mg PO BID 09/05/15 [History] Nitroglycerin [Nitrostat] 0.4 mg SL Q5-10MIN PRN 09/05/15 [History] Nystatin SUSP [Mycostatin Suspension] 4 ml PO QID 09/05/15 [History] Ondansetron HCl [Zofran] 4 mg PO Q8HR PRN 09/05/15 [History] Pantoprazole Sodium [Protonix] 40 mg PO DAILY 09/05/15 [History] Potassium Chloride [K-Tab ER] 20 meq PO BID 09/05/15 [History] Primidone [Mysoline] 50 mg PO HS 09/05/15 [History] Ranitidine HCl [Zantac] 150 mg PO BID 09/05/15 [History] Sertraline HCl [Zoloft] 100 mg PO BID 09/05/15 [History] Warfarin [Coumadin] 5 mg PO QWEEK MDD Wednesday09/05/15 [History] Dicyclomine [Bentyl] 10 mg PO QID PRN 08/07/16 [History] Oxygen 2 l .ROUTE AD 08/07/16 [History] Warfarin [Coumadin] 2.5 mg PO 6XW MDD SUN,MON,,WED,TH,SAT 08/07/16 [ History] Amoxicillin/Clavulanate [Augmentin] 875 mg PO BIDWM #12 tablet 08/09/16 [Rx] Furosemide [Lasix] 40 mg PO DAILY #30 tablet 08/09/16 [Rx] PredniSONE 10 mg PO DAILY 18 Days 08/09/16 [Rx] Allergies/Adverse Reactions: Allergies aspirin Adverse Reaction (Verified 09/04/15 20:11) Anaphylaxis metoclopramide [From Reglan] Adverse Reaction (Verified 09/04/15 20:11) See Comments prednisone Adverse Reaction (Verified 09/04/15 20:11) See Comments Date of admission: 08/07/16 22:08 Primary care physician: Jermain Mtz MD - Patient Status Disposition: Home, Self-Care Condition: Good Overall status at discharge: patient is progressing back to baseline - Discharge Instructions Follow Up With: Jermain Mtz MD [Primary Care Provider] - Additional Instructions: Follow-up with primary care physician within the next 7 days. Complete 6 more days of Augmentin and taper prednisone. Increase dose of Lasix to 40 mg daily - Diet and Activity Activity: wear oxygen at all times Diet: diabetic diet Hospital course: Ms. Trinidad is a 75 year old female with past medical history of diabetes not insulin-dependent, hypertension, HLD, CAD, GERD, YOMI, DVT/PE, depression, osteoporosis oxygen-dependent copd, using home oxygen 2L/min was brought in by her family for evaluation of progressive shortness o breath of 2 weeks duration prior to admission. No associated fever, chills and rigors. She could barely breath, work of breathing is taking its toll on her. She reports wheezing, and a productive cough of initially clear but now greenish-yellow. No sore throat or glandular enlargement in the neckShe has not taken any antibiotic. She is uptodate with influenza and pneumococcal vaccination. Upon admission she was started on Solu-Medrol and Rocephin was added. Patient feels better at the moment is bringing up less phlegm. Her INR was subtherapeutic at 1.9, then 1.8 and today is 2.2. She will be discharged on a prednisone taper and Augmentin. The patient's Lasix will be increased up to 40 mg daily - Time Spent with Patient Total time spent providing and/or coordinating discharge services: Greater than 30 minutes - Constitutional Vitals: Temp Pulse Resp BP Pulse Ox 97.6 F 75 22 128/77 95 08/09/16 10:56 08/09/16 10:56 08/09/16 11:28 08/09/16 10:56 08/09/16 11:28 General appearance: Present: A&O X 3, obese - Head Head exam: Present: atraumatic, normocephalic - Eye Eye exam: Present: PERRL, conjuntiva pink, sclera anicteric Pupils: Present: PERRL - Neck Neck exam general surgery: Present: supple, trachea midline. Absent: lymphadenopathy - Respiratory Respiratory exam: Present: CTAB, rales (Fine bibasilar crackles). Absent: accessory muscle use, rhonchi, wheezes - Cardiovascular Cardiovascular exam: Present: RRR, +S1, +S2. Absent: diastolic murmur, gallop, rubs, systolic murmur - GI/Abdominal GI/Abdominal exam: Present: normal bowel sounds, soft, no peritoneal signs. Absent: distended, tenderness - Extremities Exam Extremities exam: Present: pedal edema (+ 1 nonpitting edema both lower extremities), warm, radial pulses palpable and symetrical. Absent: calf tenderness, cyanotic - Neurological Exam Neurological exam: Present: CN II-XII intact, oriented X3, no focal deficits. Absent: pronater drift, facial droop, speech deficit - Skin Skin exam: Present: dry, intact - VTE Reasons for not Prescribing Prophylaxis: Not indicated-Anticoagulated or INR therapeutic
[2016-08-09] MEDS ORDERED: predniSONE 20 MG TABLET PO ONE (13:24)
--- NOTE | 2016-08-10 12:12 | Electrocardiograph Report ---
[facility] Test Date: 2016-08-07 Pat Name: Jennifer Trinidad Department: 3501 Room: 3B44 Gender: F Ip Counsel: : 1940 Requested By: Uziel Lomas Order Number: [id number] Reading MD: Edmund Kaye DO Measurements Intervals Sod Rate: 68 P: -4 [place]: 146 QRS: -21 QRSD: 86 T: 17 QT: 409 QTc: 427 Interpretive Statements Sinus rhythm Leftward axis Possible left ventricular hypertrophy Electronically Signed On 08-10-16 12:11:35 EST by Edmund Kaye DO
== END 2016-08-09 14:42 | disposition home or self-care (01) | DRG 190 ==
LOC: 3BNU 18:46 → EMEROO 18:46 → 3BNU 21:07 → SUATTDRO 22:08
PROVIDERS: ADMIT Internal Medicine; ATTEND Internal Medicine

== ENCOUNTER 2018-02-08 09:55 | Inpatient (IN) ==
[2018-02-08] MEDS ORDERED: methylPREDNISolone 125 MG/2 ML VIAL IVP ONE (10:02)
[2018-02-08] MEDS: Ipratropium/Albuterol Neb 3 ML IH ONE ×2 (10:09→10:56)
[2018-02-08] MEDS: 0.9 % Sodium Chloride 500 ML IVC ONE ×2 (10:13→18:25)
[2018-02-08 10:41] LABS: Basophils % 0.4 %; Eosinophils # 0.1 K/mcL (0.0-0.6); Eosinophils % 1.5 %; Hematocrit 36.2 % (35.3-44.9); Hemoglobin 11.6 g/dL (11.5-15.4); Immature Granulocytes % 0.4 % (0-4); Lymphocytes # 1.2 K/mcL (0.6-4.6); Lymphocytes % 22.2 %; Mean Corpuscular Hemoglobin 29.9 pg (28.0-33.3); Mean Corpuscular Volume 93.3 fL (83.0-100.0); Mean Platelet Volume 9.7 fL (9.4-12.4); Monocytes # 0.3 K/mcL (0.0-1.3); Monocytes % 4.8 %; Neutrophils # 3.8 K/mcL (1.6-8.9); Platelet Count 107 K/mcL (140-400); Red Blood Count 3.88 M/mcL (3.82-4.97); Red Cell Distribution Width 15.1 % (11.5-14.5); Segmented Neutrophils % 70.7 %
--- NOTE | 2018-02-08 10:41 | Emergency Department Note ---
Disposition Clinical Impression: Atrial fibrillation with RVR CHF exacerbation Qualifiers: Heart failure type: unspecified Qualified Code(s): I50.9 - Heart failure, unspecified Disposition: Admitted As Inpatient Condition: Good Referrals: Jermain Mtz MD [Primary Care Provider] - Forms: ED Satisfaction Letter Time of Disposition: 12:43 General Adult HPI - General Chief complaint: ED Shortness of Breath/Dyspnea Stated complaint: shortness on breaths Time Seen by Provider: 02/08/18 10:02 Source: patient, family, EMS Limitations: no limitations Nursing Notes Reviewed: Yes Vital Signs Reviewed: Yes - History of Present Illness HPI Narrative: 77 year old female prsent to the ED via EMS with complaints of SHERLY and inital pulse ox was 88% and staets that she has a history of CHF/COPD and has been feeling weakness since yesterday and has had a productive couhg of whitish clear sputum in addition to palpaitions. It appears that she is likely in atrial fibrillation. Atinet states taht she has been feeling nasueated and has had a few episodes of vomitting. Teressa recievd two breathing treatemtns in route and is currenlty on 6LNC per EMS and is 96%, we have reduced her to 3LNC, which is what she wear conitnosly at home and she is maintiaining at 3LNC. PAtient states that she just doesnt feel well. She cannot recollect at this time any cardiac procedures. Pain Scale: 0 - Related Data Home Medications Medication Instructions Recorded Confirmed Albuterol Sulfate 2.5 mg PO TID 09/05/15 08/07/16 Albuterol Sulfate [Albuterol 2 puff IH Q4H PRN 09/05/15 08/07/16 Inhaler] Alendronate Sodium [Fosamax] 35 mg PO QWEEK 09/05/15 08/07/16 Amlodipine Besylate 2.5 mg PO DAILY 09/05/15 08/07/16 Atorvastatin [Lipitor] 10 mg PO HS 09/05/15 08/07/16 Budesonide/Formoterol 160/4.5 2 puff IH BIDR 09/05/15 08/07/16 [Symbicort 160/4.5] Ergocalciferol (VITAMIN D2) 50,000 unit PO QWEEK 09/05/15 08/07/16 [Vitamin D2] Fenofibrate [Tricor] 54 mg PO DAILY 09/05/15 08/07/16 Gabapentin [Neurontin] 100 mg PO TID 09/05/15 08/07/16 Hydrocodone/Acetaminophen [[place] 1 tab PO Q6HR PRN 09/05/15 08/07/16 7.5-325 Tablet] Isosorbide MONOnitrate [Isosorbide 60 mg PO DAILY 09/05/15 08/07/16 Mononitrate ER] Levothyroxine Sodium [Tirosint] 175 mcg PO DAILY 09/05/15 08/07/16 Metoprolol [Lopressor] 50 mg PO BID 09/05/15 08/07/16 Nitroglycerin [Nitrostat] 0.4 mg SL Q5-10MIN PRN 09/05/15 08/07/16 Ondansetron HCl [Zofran] 4 mg PO Q8HR PRN 09/05/15 08/07/16 Pantoprazole Sodium [Protonix] 40 mg PO DAILY 09/05/15 08/07/16 Potassium Chloride [K-Tab ER] 20 meq PO BID 09/05/15 08/07/16 Primidone [Mysoline] 50 mg PO HS 09/05/15 08/07/16 Ranitidine HCl [Zantac] 150 mg PO BID 09/05/15 08/07/16 Sertraline HCl [Zoloft] 100 mg PO BID 09/05/15 08/07/16 Warfarin [Coumadin] 5 mg PO QWEEK MDD Wednesday09/05/15 08/07/16 glipiZIDE [Glucotrol] 2.5 mg PO DAILY 09/05/15 08/07/16 hydrOXYzine HCl [Hydroxyzine HCl] 25 mg PO TID 09/05/15 08/07/16 Dicyclomine [Bentyl] 10 mg PO QID PRN 08/07/16 08/07/16 Oxygen 2 l .ROUTE AD 08/07/16 08/07/16 Warfarin [Coumadin] 2.5 mg PO 6XW MDD 08/07/16 08/07/16 SUN,MON,TUES,WED,THURS,SAT Previous Rx's Medication Instructions Recorded Loperamide [Imodium] 2 mg PO Q4HR PRN #18 capsule 09/05/15 Furosemide [Lasix] 40 mg PO DAILY #30 tablet 08/09/16 predniSONE [PredniSONE] 10 mg PO DAILY 18 Days tablet 08/09/16 Allergies Allergy/AdvReac Type Severity Reaction Status Date / Time aspirin AdvReac Anaphylaxis Verified 09/04/15 20:11 metoclopramide [From Reglan] AdvReac See Verified 09/04/15 20:11 Comments prednisone AdvReac See Verified 09/04/15 20:11 Comments Constitutional: Reports: chills, weakness. Denies: fever, weight change Eyes: Denies: eye pain, eye discharge, vision change ENT ED: Denies: ear pain, throat pain, dental pain, hearing loss, epistaxis, congestion, dysphagia Cardiovascular: Reports: chest pain, palpitations, dyspnea on exertion. Denies : edema, syncope Respiratory: Denies: cough, dyspnea, wheezes, hemoptysis, stridor Gastrointestinal: Reports: nausea, vomiting. Denies: abdominal pain, diarrhea, constipation, hematemesis, melena, hematochezia Genitourinary: Denies: dysuria, frequency, hematuria, discharge Musculoskeletal: Denies: back pain, neck pain, arthralgia, myalgia Integumentary: Denies: rash, abrasion, lesions Neurological: Denies: headache, weakness, numbness, paresthesias, confusion, abnormal gait, vertigo Psychiatric: Denies: anxiety, depression, suicidal thoughts, homicidal thoughts , auditory hallucinations, visual hallucinations Endocrine: Denies: fatigue Hematological/Lymphatic: Denies: easy bleeding, easy bruising Allergic/Immunologic: Denies: facial swelling, urticaria Past Medical History - Past Medical History Medical history: Reports: COPD, diabetes, hypertension, other Surgical history: Reports: appendectomy, cholecystectomy, hysterectomy Psychiatric history: Reports: no psych history - Social History Smoking Status: Never smoker Smokeless Tobacco Status: No Alcohol use: Reports: none Drug use: Reports: none Physical Exam - General Limitations: no limitations General appearance: alert, anxious - Head Head exam: atraumatic, normocephalic, normal inspection - Eye Eye exam: Present: normal appearance, PERRL, EOMI - Expanded Eye Exam Pupils: Bilateral: reactive - ENT ENT exam: normal exam, normal oropharynx, mucous membranes moist - Expanded ENT Exam External ear exam: Present: normal external inspection Mouth exam: Present: normal external inspection Teeth exam: Present: normal inspection Throat exam: Present: normal inspection - Neck Neck exam: Present: normal inspection, full ROM, trachea midline - Chest Chest inspection: Present: normal inspection, symmetric chest wall rise - Respiratory Respiratory exam: Present: wheezes, accessory muscle use - Cardiovascular Cardiovascular exam: Present: tachycardia, irregular rhythm, normal heart sounds - Abdominal Exam Abdominal exam: Present: soft, tenderness, normal bowel sounds. Absent: Non- Tender, distention, guarding, rebound, rigidity, obturator sign, Marroquin's sign, Rovsing's sign, tenderness at McBurney's Point Abdominal tenderness: Present: LUQ - Extremities Exam Extremities exam: Present: normal inspection, full ROM. Absent: tenderness, pedal edema - Expanded Upper Extremity Exam Shoulder exam: Present: normal inspection, full ROM Arm exam: Present: normal inspection, full ROM Elbow exam: Present: normal inspection, full ROM Forearm/Wrist exam: Present: normal inspection, full ROM Hand exam: Present: normal inspection, full ROM Vascular exam: Normal: capillary refill, radial pulse - Expanded Lower Extremity Exam Hip/Pelvis exam: Present: normal inspection, full ROM Upper leg exam: Present: normal inspection, full ROM Knee exam: Present: normal inspection, full ROM Lower leg exam: Present: normal inspection, full ROM Ankle exam: Present: normal inspection, full ROM Foot/toe exam: Present: normal inspection, full ROM Neurovascular/Tendon exam: Absent: motor deficit, sensory deficit, tendon deficit - Back Exam Back exam: Present: normal inspection, full ROM. Absent: tenderness - Neurological Exam Neurological exam: Present: alert, oriented X3 - Expanded Neurological Exam Patient oriented to: Present: person, place, time Coma Scale Eye Opening: Spontaneous Coma Scale Motor Response: Obeys Commands Coma Scale Verbal Response: Oriented Coma Scale Total: 15 - Psychiatric Psychiatric exam: Present: normal affect, normal mood - Skin Skin exam: Present: warm, dry, intact, normal color Course Course Narrative: we will do a cardiopulmonary and abodminal workup on aptinet. She is also in atrial fib with RVR and we will treat with dilt in adddition to assess for CHF excerabtion. Lali is crreutnl stable on 3LCN at 95%. WE will obtain imaiging with CTs of chest and abdomen. Lali will be admitted to medicine today - Consultations Consultation #1: discussed case with Dr. Cochran and she accepts patient for admission. Lali is agreeable to plan. Currently on cardizem 10 drip and Hr is impriving to 120s from 130s, may need to increase, lasix added to therapy. Time: 12:43 Vital Signs Temperature 98.9 F 02/08/18 10:01 Pulse Rate 122 02/08/18 10:01 Respiratory Rate 22 02/08/18 10:01 Blood Pressure 125/103 02/08/18 10:01 O2 Sat by Pulse Oximetry 97 02/08/18 10:01 Temperature 98.9 F 02/08/18 10:01 Pulse Rate 132 02/08/18 11:55 Respiratory Rate 20 02/08/18 11:55 Blood Pressure 141/105 02/08/18 11:55 O2 Sat by Pulse Oximetry 95 02/08/18 11:55 Oxygen Delivery Oxygen Delivery Nasal Cannula Medical Decision Making - Medical Records Medical records reviewed: Yes I reviewed the patient's medical records. - Lab Data Lab results reviewed: Yes I reviewed the patient's lab results. Result diagrams: 02/08/18 10:23 02/08/18 10:23 Lab Results 02/08/18 02/08/18 02/08/18 Range/Units 10:23 10:23 10:23 WBC (4.3-11.1) K/mcL RBC (3.82-4.97) M/mcL Hgb (11.5-15.4) g/dL Hct (35.3-44.9) % MCV (83.0-100.0) fL MCH (28.0-33.3) pg MCHC (31.6-35.5) g/dL RDW (11.5-14.5) % Plt Count (140-400) K/mcL MPV (9.4-12.4) fL Immature Gran % (0-4) % Seg Neutrophils % % Lymphocytes % % Monocytes % % Eosinophils % % Basophils % % Neutrophils # (1.6-8.9) K/mcL Lymphocytes # (0.6-4.6) K/mcL Monocytes # (0.0-1.3) K/mcL Eosinophils # (0.0-0.6) K/mcL Basophils # (0.0-0.2) K/mcL PT 22.2 H (9.4-12.1) Seconds INR 2.0 APTT 37.8 H (26.0-36.0) Seconds Sodium (136-145) mEq/L Potassium (3.5-5.1) mEq/L Chloride (98-107) mEq/L Carbon Dioxide (23-29) mEq/L BUN (8-23) mg/dL Creatinine (0.60-1.20) mg/dL Est GFR ( Amer) (> 60) Est GFR (Non-Af Amer) (> 60) BUN/Creatinine Ratio (6-26) Glucose (70-105) mg/dL Calculated Osmolality (280-300) Calcium (8.6-10.3) mg/dL Total Bilirubin 0.8 (0.3-1.0) mg/dL Direct Bilirubin 0.2 (0.0-0.2) mg/dL Indirect Bilirubin 0.6 (0.0-1.2) mg/dL AST 13 (13-39) Units/L ALT 7 (7-52) Units/L Alkaline Phosphatase 57 (34-104) Units/L Troponin I (< 0.04) ng/mL B-Natriuretic Peptide 201 H (Less than 100) pg/mL Serum Total Protein 6.8 (6.4-8.9) g/dL Albumin 4.4 (3.5-5.7) g/dL Globulin 2.4 (2.4-3.5) g/dL Albumin/Globulin Ratio 1.8 (1.1-2.2) Lipase (11-82) Units/L TSH (0.340-5.600) mcIU/mL 02/08/18 02/08/18 Range/Units 10:23 10:23 WBC 5.4 (4.3-11.1) K/mcL RBC 3.88 (3.82-4.97) M/mcL Hgb 11.6 (11.5-15.4) g/dL Hct 36.2 (35.3-44.9) % MCV 93.3 (83.0-100.0) fL MCH 29.9 (28.0-33.3) pg MCHC 32.0 (31.6-35.5) g/dL RDW 15.1 H (11.5-14.5) % Plt Count 107 L (140-400) K/mcL MPV 9.7 (9.4-12.4) fL Immature Gran % 0.4 (0-4) % Seg Neutrophils % 70.7 % Lymphocytes % 22.2 % Monocytes % 4.8 % Eosinophils % 1.5 % Basophils % 0.4 % Neutrophils # 3.8 (1.6-8.9) K/mcL Lymphocytes # 1.2 (0.6-4.6) K/mcL Monocytes # 0.3 (0.0-1.3) K/mcL Eosinophils # 0.1 (0.0-0.6) K/mcL Basophils # 0.0 (0.0-0.2) K/mcL PT (9.4-12.1) Seconds INR APTT (26.0-36.0) Seconds Sodium 142 (136-145) mEq/L Potassium 3.5 (3.5-5.1) mEq/L Chloride 102 (98-107) mEq/L Carbon Dioxide 28 (23-29) mEq/L BUN 9 (8-23) mg/dL Creatinine 0.62 (0.60-1.20) mg/dL Est GFR ( Amer) > 60 (> 60) Est GFR (Non-Af Amer) > 60 (> 60) BUN/Creatinine Ratio 15 (6-26) Glucose 171 H (70-105) mg/dL Calculated Osmolality 297 (280-300) Calcium 9.2 (8.6-10.3) mg/dL Total Bilirubin (0.3-1.0) mg/dL Direct Bilirubin (0.0-0.2) mg/dL Indirect Bilirubin (0.0-1.2) mg/dL AST (13-39) Units/L ALT (7-52) Units/L Alkaline Phosphatase (34-104) Units/L Troponin I < 0.03 (< 0.04) ng/mL B-Natriuretic Peptide (Less than 100) pg/mL Serum Total Protein (6.4-8.9) g/dL Albumin (3.5-5.7) g/dL Globulin (2.4-3.5) g/dL Albumin/Globulin Ratio (1.1-2.2) Lipase 6 L (11-82) Units/L TSH 3.015 (0.340-5.600) mcIU/mL - Radiology Data Radiology results reviewed: Yes I reviewed the patient's radiology results. - EKG Data EKG #1 EKG attestation: Yes I reviewed and interpreted this EKG. EKG results narrative: atrial fibrillation with rate of 129, NO STEMI. nonsepific ST-T wave abnomrliaties. change from 08/07/16. 1011
[2018-02-08 10:55] LABS: Prothrombin Time 22.2 Seconds (9.4-12.1)
[2018-02-08 10:58] LABS: Activated Partial Thrombo Time 37.8 Seconds (26.0-36.0)
[2018-02-08 11:02] LABS: Albumin 4.4 g/dL (3.5-5.7); Albumin/Globulin Ratio 1.8 (1.1-2.2); Bilirubin,Direct 0.2 mg/dL (0.0-0.2); Bilirubin,Indirect 0.6 mg/dL (0.0-1.2); Bilirubin,Total 0.8 mg/dL (0.3-1.0); Globulin 2.4 g/dL (2.4-3.5); Total Protein 6.8 g/dL (6.4-8.9)
[2018-02-08 11:05] LABS: BUN/Creatinine Ratio 15 (6-26); Blood Urea Nitrogen 9 mg/dL (8-23); Calcium 9.2 mg/dL (8.6-10.3); Carbon Dioxide 28 mEq/L (23-29); Chloride 102 mEq/L (98-107); Glucose 171 mg/dL (70-105); Lipase 6 Units/L (11-82); Osmolality,Calculated 297 (280-300); Potassium 3.5 mEq/L (3.5-5.1); Sodium 142 mEq/L (136-145); Troponin I < 0.03 ng/mL (< 0.04); eGFR For African Americans > 60 (> 60); eGFR For Non-African Americans > 60 (> 60)
[2018-02-08 11:24] LABS: Thyroid Stimulating Hormone 3.015 mcIU/mL (0.340-5.600)
[2018-02-08] MEDS: Isovue-370 500 ML INFUS..BTL IV ONE ×2 (11:43→11:47)
[2018-02-08] MEDS ORDERED: Furosemide 40 MG/4 ML VIAL IVP ONE (12:31)
--- NOTE | 2018-02-08 14:49 | Electrocardiograph Report ---
[facility] Test Date: 2018-02-08 Pat Name: Jennifer Trinidad Department: 103 Room: Gender: F Reading Professor: : 1940 Requested By: Callie Curran Order Number: [id number] Reading MD: Vernon Vick Measurements Intervals [place] Rate: 129 P: [place]: 0 QRS: -8 QRSD: 90 T: 60 QT: 315 QTc: 391 Interpretive Statements ATRIAL FIBRILLATION WITH RAPID VENTRICULAR RESPONSE NONSPECIFIC ST & T-WAVE ABNORMALITY ABNORMAL RHYTHM ECG Electronically Signed On 02-08-2018 14:48:44 EDT by Vernon Vick
[2018-02-08] MEDS ORDERED: *HR* FentaNYL (PF) 100 MCG/2 ML VIAL IVP ONE ×2 (15:12→21:24)
[2018-02-08] MEDS ORDERED: Nitroglycerin 0.4 MG TAB.SUBL SL PRN (16:10)
[2018-02-08] MEDS ORDERED: Ondansetron 4 MG/2 ML VIAL IVP ONE (16:10)
[2018-02-08] MEDS ORDERED: NON-FORMULARY MEDICATION 1 EACH EACH (Oxygen [Oxygen] 2 L) SCH (16:15)
--- NOTE | 2018-02-08 16:44 | Internal Med History&Physical ---
Date of Encounter: 02/09/18 Time of Encounter: 16:43 Internal Medicine - H&P: HPI Chief complaint: Shortness of breath History of present illness: Ms. Trinidad is a 77 year old female with complaints of history of CHF/COPD and on chronic anticoagulation for DVT and PE who presented to the ER with SOB and hypoxia with reported SPO2 around 88% . He reported that she has been feeling weak and complaining of productive couhg of whitish clear sputum. She stated that she started feeling nauseated and had several episode of vomiting and later she started that her heart is racing more than usual. She is on oxygen supplementation on 3 L nasal cannula. She was evaluated by the ER staff and she was found in A. fib with rapid ventricular response, she was started on Cardizem drip to control her rate. Past Med Surg Social Fam HX - Past Medical History Medical history: COPD, diabetes, hypertension, other Additional medical history: DIVERTICULITIS Psychiatric history: no psych history - Past Surgical History Surgical History: appendectomy, cholecystectomy, hysterectomy Additional surgical history: TONSILECTOMY - Social History Smoking Status: Never smoker Smokeless Tobacco Status: No Alcohol use: none Drug use: none - Family History Father Adopted: No Family Member Ethnicity: Non- Living Status: Hx Family Cardiac Disorders: Yes ([place]) Hx Family Respiratory Disorders: Yes (Emphysema) Hx Family Cancer: Yes Hx Family GI Disorders: No Hx Family Endocrine Disorder: Yes (DM) Hx Family Neuromuscular Disorders: No Hx Family Neurologic Disorders: No Hx Family HEENT Disorders: No Hx Family Autoimmune Disorders: No Internal Medicine - H&P: Meds Albuterol Sulfate 2.5 mg PO TID 09/05/15 [History] Albuterol Sulfate [Albuterol Inhaler] 2 puff IH Q4H PRN 09/05/15 [History] Amlodipine Besylate 2.5 mg PO DAILY 09/05/15 [History] Atorvastatin [Lipitor] 10 mg PO HS 09/05/15 [History] Budesonide/Formoterol 160/4.5 [Symbicort 160/4.5] 2 puff IH BIDR 09/05/15 [ History] Ergocalciferol (VITAMIN D2) [Vitamin D2] 50,000 unit PO QWEEK 09/05/15 [History] Fenofibrate [Tricor] 54 mg PO DAILY 09/05/15 [History] Gabapentin [Neurontin] 100 mg PO TID 09/05/15 [History] Hydrocodone/Acetaminophen [Seltzer 7.5-325 Tablet] 1 tab PO Q6HR PRN 09/05/15 [ History] Isosorbide MONOnitrate [Isosorbide Mononitrate ER] 60 mg PO DAILY 09/05/15 [ History] Levothyroxine Sodium [Tirosint] 175 mcg PO DAILY 09/05/15 [History] Metoprolol [Lopressor] 50 mg PO BID 09/05/15 [History] Nitroglycerin [Nitrostat] 0.4 mg SL Q5-10MIN PRN 09/05/15 [History] Pantoprazole Sodium [Protonix] 40 mg PO DAILY 09/05/15 [History] Potassium Chloride [K-Tab ER] 20 meq PO BID 09/05/15 [History] Primidone [Mysoline] 50 mg PO HS 09/05/15 [History] Ranitidine HCl [Zantac] 150 mg PO BID 09/05/15 [History] Sertraline HCl [Zoloft] 100 mg PO BID 09/05/15 [History] Warfarin [Coumadin] [address] 09/05/15 [History] glipiZIDE [Glucotrol] 2.5 mg PO DAILY 09/05/15 [History] hydrOXYzine HCl [Hydroxyzine HCl] 25 mg PO TID 09/05/15 [History] Dicyclomine [Bentyl] 10 mg PO QID PRN 08/07/16 [History] Oxygen 2 l .ROUTE AD 08/07/16 [History] Warfarin [Coumadin] 2.5 mg PO MOTUWETHFRSA 08/07/16 [History] Furosemide [Lasix] 40 mg PO DAILY #30 tablet 08/09/16 [Rx] Cholestyramine 4 gm PO BIDAC 02/08/18 [History] 3 Allergy/AdvReac Type Severity Reaction Status Date / Time aspirin AdvReac Anaphylaxis Verified 09/04/15 20:11 metoclopramide [From Reglan] AdvReac See Verified 09/04/15 20:11 Comments prednisone AdvReac See Verified 09/04/15 20:11 Comments All Systems PM: A 10-system review of systems was performed and is negative for pertinent findings except as documented above in the HPI. - Constitutional Constitutional: no chills, no fever(s), no night sweats - Cardiovascular Cardiovascular ROS IM: dyspnea, palpitations, no chest pain, no diaphoresis, no lightheadedness, no syncope - Gastrointestinal Gastrointestinal: nausea, vomiting, no abdominal pain, no diarrhea, no hematemesis, no hematochezia, no melena - Neurological Neurological ROS: no confusion, no convulsions, no focal weakness, no numbness, no tingling, no tremor(s) - Constitutional Vitals: Temp Pulse Resp BP Pulse Ox 98.9 F 135 16 133/102 94 02/08/18 10:01 02/08/18 14:46 02/08/18 14:46 02/08/18 14:46 02/08/18 14:46 General appearance: Present: A&O X 3 - Head Head exam: Present: atraumatic, normocephalic - Neck Neck exam general surgery: Present: supple, trachea midline. Absent: lymphadenopathy - Respiratory Respiratory exam: Present: CTAB. Absent: accessory muscle use, rales, rhonchi, wheezes - Cardiovascular Cardiovascular exam: Present: RRR, +S1, +S2. Absent: diastolic murmur, gallop, rubs, systolic murmur - GI/Abdominal GI/Abdominal exam: Present: normal bowel sounds, soft, no peritoneal signs. Absent: distended, tenderness - Extremities Exam Extremities exam: Present: warm, radial pulses palpable and symmetrical. Absent : calf tenderness, cyanotic, pedal edema Internal Med - H&P Results - Labs CBC & Chem 7: 02/09/18 08:25 02/09/18 08:25 - Assessment and plan (1) Atrial fibrillation with RVR Current Visit: Yes Status: Acute Assessment and plan: The patient is on anticoagulation for history of DVT in the PE. was started on cardizem drip for rate control, cardiology was consulted. (2) CHF exacerbation Current Visit: Yes Status: Acute Assessment and plan: The patient appears euvolumic, S/p IV lasix in ER, We will cont home lasix for now, revaluate in AM for further titration of Po lasix dosage or IV . Echo in am Qualifiers: Heart failure type: unspecified Qualified Code(s): I50.9 - Heart failure, unspecified (3) Diabetes mellitus type 2, noninsulin dependent Current Visit: No Status: Chronic Assessment and plan: We will continue home regimen and start the patient and insulin sliding scale with moderate coverage (4) Hypertension, essential Current Visit: No Status: Chronic Assessment and plan: Appear to be controlled we will continue home medication (5) COPD (chronic obstructive pulmonary disease) Current Visit: No Status: Chronic Assessment and plan: We will continue supplemental oxygen, home nebulizers, PRN duneb Qualifiers: COPD type: unspecified COPD Qualified Code(s): J44.9 - Chronic obstructive pulmonary disease, unspecified (6) Anemia Current Visit: Yes Status: Acute Assessment and plan: Anemia of chronic disease, continue to monitor H&H (7) DVT prophylaxis Current Visit: No Status: Acute Assessment and plan: She is on chronic anticoagulation with warfarin for history of DVT and PE - Time Spent With Patient Total time spent is greater than 50% in coordination of care (as documented) at patient's floor/unit and/or counseling patient:
[2018-02-08] MEDS ORDERED: *HR* Warfarin 2.5 MG TABLET PO SCH (18:00)
[2018-02-08] MEDS: Cholestyramine 4 GM POWD.PACK PO SCH (18:25)
[2018-02-08] MEDS: Budesonide/Formoterol 160/4.5 MDI IH SCH (19:58)
[2018-02-08] MEDS: Albuterol Sulfate 2 MG/5 ML UDC PO SCH (21:09)
[2018-02-08] MEDS: Gabapentin 100 MG CAPSULE PO SCH (21:14)
[2018-02-08] MEDS: Primidone 50 MG TABLET PO SCH (21:15)
[2018-02-08] MEDS: hydrOXYzine pamoate 25 MG CAPSULE PO SCH (21:15)
[2018-02-08] MEDS: *HR* HYDROcodone/Acet 7.5/325 mg TABLET PO PRN (21:15)
[2018-02-08] MEDS: Famotidine 20 MG TABLET PO SCH (21:15)
[2018-02-08] MEDS ORDERED: Dextrose Gel 15 GM/37.5 ML TUBE PO PRN ×2 (23:04)
[2018-02-08] MEDS ORDERED: *HR* Dextrose 50 % in Water (Syg) 50 ML SYRINGE IVP PRN (23:04)
[2018-02-08] MEDS ORDERED: D5% in Water 1,000 ML IVC PRN (23:04)
[2018-02-09] MEDS ORDERED: 0.9 % Sodium Chloride 500 ML ONE (03:51)
[2018-02-09] MEDS: *HR* HYDROcodone/Acet 7.5/325 mg TABLET PO PRN (03:59)
[2018-02-09] MEDS: Budesonide/Formoterol 160/4.5 MDI IH SCH ×2 (07:41→19:36)
[2018-02-09] MEDS ORDERED: Naloxone 0.4 MG/ML INJ IVP PRN (08:10)
[2018-02-09 08:42] LABS: Basophils % 0.6 %; Eosinophils # 0.1 K/mcL (0.0-0.6); Eosinophils % 1.9 %; Hematocrit 32.5 % (35.3-44.9); Hemoglobin 10.1 g/dL (11.5-15.4); Immature Granulocytes % 0.4 % (0-4); Lymphocytes # 1.1 K/mcL (0.6-4.6); Lymphocytes % 21.2 %; Mean Corpuscular HGB Conc 31.1 g/dL (31.6-35.5); Mean Corpuscular Hemoglobin 29.1 pg (28.0-33.3); Mean Corpuscular Volume 93.7 fL (83.0-100.0); Mean Platelet Volume 9.8 fL (9.4-12.4); Monocytes # 0.4 K/mcL (0.0-1.3); Monocytes % 7.6 %; Neutrophils # 3.6 K/mcL (1.6-8.9); Platelet Count 106 K/mcL (140-400); Red Blood Count 3.47 M/mcL (3.82-4.97); Red Cell Distribution Width 15.5 % (11.5-14.5); Segmented Neutrophils % 68.3 %
[2018-02-09] MEDS: Gabapentin 100 MG CAPSULE PO SCH ×3 (08:44→22:29)
[2018-02-09] MEDS: Isosorbide MONOnitrate (24 HR) 60 MG TAB.ER.24H PO SCH (08:44)
[2018-02-09] MEDS: Furosemide 40 MG TABLET PO SCH (08:44)
[2018-02-09] MEDS: Fenofibrate 54 MG TABLET PO SCH (08:44)
[2018-02-09] MEDS: Cholestyramine 4 GM POWD.PACK PO SCH ×2 (08:44→17:12)
[2018-02-09] MEDS: Famotidine 20 MG TABLET PO SCH ×2 (08:44→22:29)
[2018-02-09] MEDS: hydrOXYzine pamoate 25 MG CAPSULE PO SCH ×3 (08:45→22:28)
[2018-02-09] MEDS: Insulin LISPRO 300 UNITS/3 ML VIAL SQ SCH ×4 (08:46→22:28)
[2018-02-09] MEDS: Albuterol Sulfate 2 MG/5 ML UDC PO SCH ×2 (08:49→17:04)
[2018-02-09 08:50] LABS: INR 2.6; Prothrombin Time 29.4 Seconds (9.4-12.1)
[2018-02-09 08:53] LABS: Activated Partial Thrombo Time 39.1 Seconds (26.0-36.0)
[2018-02-09] MEDS ORDERED: amLODIPine 5 MG TABLET PO SCH (09:00)
[2018-02-09] MEDS ORDERED: *HR* GlipiZIDE 5 MG TABLET PO SCH (09:00)
[2018-02-09 09:04] LABS: Alanine Aminotransferase 6 Units/L (7-52); Albumin 3.9 g/dL (3.5-5.7); Albumin/Globulin Ratio 1.6 (1.1-2.2); Alkaline Phosphatase 49 Units/L (34-104); Aspartate Amino Transferase 10 Units/L (13-39); BUN/Creatinine Ratio 16 (6-26); Bilirubin,Total 0.8 mg/dL (0.3-1.0); Blood Urea Nitrogen 9 mg/dL (8-23); Calcium 8.8 mg/dL (8.6-10.3); Carbon Dioxide 30 mEq/L (23-29); Chloride 102 mEq/L (98-107); Globulin 2.4 g/dL (2.4-3.5); Glucose 154 mg/dL (70-105); Magnesium 1.8 mg/dL (1.6-2.6); Osmolality,Calculated 292 (280-300); Phosphorous 3.6 mg/dL (2.7-4.5); Potassium 3.5 mEq/L (3.5-5.1); Sodium 140 mEq/L (136-145); Total Protein 6.3 g/dL (6.4-8.9); eGFR For African Americans > 60 (> 60); eGFR For Non-African Americans > 60 (> 60)
--- NOTE | 2018-02-09 10:20 | Internal Med Progress Note ---
<Abdelrahman Calzada - Last Filed: 02/09/18 18:54> Date of Encounter: 02/09/18 - Assessment and plan (1) Atrial fibrillation with RVR Current Visit: Yes Status: Acute Assessment and plan: - likely secondary to her acute exacerbation of CHF- BNP: 201, CTA showed pleural effusions and mid interstitial edema and pulmonary edema - patient is currently on Cardizem drip- will wean of on the drip and be on PO Cardizem 60 mg TID. - Metoprolol has been discontinued due to her PMHx of COPD. - continue monitoring Is/Os, watch patient for any signs of Volume Overload (2) CAD (coronary artery disease) Current Visit: Yes Status: Chronic Assessment and plan: Per cardiology: -Known CAD s/p C 10 years ago with mild CAD per patient report. -denies chest pain. -Troponins negative x4. -TTE showed LVEF : 60% Qualifiers: Coronary Disease-Associated Artery/Lesion type: [place] artery [place] vs. transplanted heart: [place] heart Associated angina: without angina Qualified Code(s): I25.10 - Atherosclerotic heart disease of [place] coronary artery without angina pectoris (3) CHF (congestive heart failure) Current Visit: Yes Status: Acute Assessment and plan: -patient presented with JOHNSON and mild orthopnea, BNP: 201, CTA: showed interstitial and pulmonary edema, with small b/l pleural effusions. Echo pending showed preserved EF (60%) - Currently patient is on 40 mg Furosemide PO - Cardiology has been consulted and they recommended holding off on Metoprolol owing to her PMHx of COPD - continue to monitor her Is/Os . Monitor sings of any hemodynamic instability (4) COPD (chronic obstructive pulmonary disease) Current Visit: No Status: Chronic Assessment and plan: - patient has a Hx of COPD, is on 3L home O2. - no duoneb treatment has been given. We're holding off on her dose of 2.5mg TID Albuterol sulphate to prevent her from getting tachycardiac. - we will continue to monitor her vitals for any potential COPD exacerbation Qualifiers: COPD type: unspecified COPD Qualified Code(s): J44.9 - Chronic obstructive pulmonary disease, unspecified (5) Hypertension, essential Current Visit: No Status: Chronic Assessment and plan: - patient has a PMH of HTN - she was hypertensive in the morning - currently she is normotensive, this could be secondary to her being on Cardizem 60mg PO (6) Diabetes mellitus type 2, noninsulin dependent Current Visit: No Status: Chronic (7) DVT prophylaxis Current Visit: No Status: Acute Assessment and plan: She is on chronic anticoagulation with warfarin for history of DVT and PE - Time Spent With Patient Total time spent is greater than 50% in coordination of care (as documented) at patient's floor/unit and/or counseling patient: - Constitutional Vitals: Temp Pulse Resp BP Pulse Ox 98.0 F 105 16 120/76 93 02/09/18 07:26 02/09/18 07:26 02/09/18 07:41 02/09/18 07:26 02/09/18 07:41 - Head Head exam: Present: atraumatic, normal inspection, normocephalic - Respiratory Respiratory exam: Present: respiratory distress Additional comments: mild b/l wheezing, no rales or ronchi - Cardiovascular Additional comments: irregular irregualr HR, tachcardia, S1S2 nl - GI/Abdominal Additional comments: normal BS, abdomen soft non-tender, non distended - Extremities Exam Additional comments: no pedal edema, skin with good turgor, pulses symmetrical and intact Internal Medicine: Result - Labs CBC & Chem 7: 02/09/18 08:25 02/09/18 08:25 Labs: Short CBC 02/09/18 Range/Units 08:25 WBC 5.3 (4.3-11.1) K/mcL Hgb 10.1 L D (11.5-15.4) g/dL Hct 32.5 L (35.3-44.9) % Plt Count 106 L (140-400) K/mcL Neutrophils # 3.6 (1.6-8.9) K/mcL BMP 02/09/18 08:25 Sodium 140 Potassium 3.5 Chloride 102 Carbon Dioxide 30 H BUN 9 Creatinine 0.58 L Glucose 154 H Calcium 8.8 Cardiac Enzymes 02/08/18 02/09/18 02/09/18 Range/Units 18:05 00:43 04:28 Troponin I < 0.03 < 0.03 < 0.03 (< 0.04) ng/mL Liver Function 02/09/18 Range/Units 08:25 Total Bilirubin 0.8 (0.3-1.0) mg/dL AST 10 L (13-39) Units/L ALT 6 L (7-52) Units/L Alkaline Phosphatase 49 (34-104) Units/L Albumin 3.9 (3.5-5.7) g/dL - ABG Interpretation ABG results: PT/INR, D-dimer PT 29.4 Seconds (9.4-12.1) H 02/09/18 08:25 Consult Discharge Plan - Plan Referrals: Jermain Mtz MD [Primary Care Provider] - <Dahlia Yepez - Last Filed: 02/10/18 07:55> Date of Encounter: 02/09/18 Time of Encounter: 13:00 - Assessment and plan (1) COPD (chronic obstructive pulmonary disease) Current Visit: No Status: Chronic Qualifiers: COPD type: unspecified COPD Qualified Code(s): J44.9 - Chronic obstructive pulmonary disease, unspecified (2) Hypertension, essential Current Visit: No Status: Chronic (3) Diabetes mellitus type 2, noninsulin dependent Current Visit: No Status: Chronic (4) DVT prophylaxis Current Visit: No Status: Acute (5) Atrial fibrillation with RVR Current Visit: Yes Status: Acute (6) CHF exacerbation Current Visit: Yes Status: Acute Qualifiers: Heart failure type: diastolic Qualified Code(s): I50.33 - Acute on chronic diastolic (congestive) heart failure (7) CHF (congestive heart failure) Current Visit: Yes Status: Acute - Time Spent With Patient Total time spent is greater than 50% in coordination of care (as documented) at patient's floor/unit and/or counseling patient: - Constitutional Vitals: Temp Pulse Resp BP Pulse Ox 98 F 88 18 119/74 97 02/09/18 15:29 02/09/18 15:29 02/09/18 15:29 02/09/18 15:29 02/09/18 15:29 Internal Medicine: Result - Labs CBC & Chem 7: 02/09/18 08:25 02/09/18 08:25 - ABG Interpretation ABG results: PT/INR, D-dimer PT 29.4 Seconds (9.4-12.1) H 02/09/18 08:25 - Impressions Impressions Echocardiogram 02/09/18 16:24 Impressions: LVEF 60%. Normal LV chamber size, wall thickness and function. Indeterminate diastolic function. Normal right ventricular structure and function. Mild mitral regurgitation. Mild tricuspid regurgitation. No pulmonary hypertension. Left Ventricular Wall Motion: Rest Echo Findings All wall segments showed normal motion. Findings: Study Quality * Technically adequate exam. ECG Findings * Normal sinus rhythm. Left Ventricle * LVEF 60%. * Normal LV chamber size, wall thickness and function. * Indeterminate diastolic function. Right Ventricle * Normal right ventricular structure and function. Left Atrium * Moderately dilated left atrium. Right Atrium * Mildly dilated right atrium. Aortic Valve * Trileaflet aortic valve. * Mildly sclerotic aortic valve leaflets. * No aortic regurgitation. * No aortic stenosis. Mitral Valve * Mild mitral annular calcification * Mild mitral regurgitation. * No mitral stenosis. Tricuspid Valve * Normal tricuspid valve structure. * Mild tricuspid regurgitation. * No pulmonary hypertension. Pulmonic Valve * Normal pulmonic valve structure and function. * Trace pulmonic regurgitation. Aorta * Normally sized aortic root. Pericardium * The pericardium appears normal. IVC * Normal IVC dimensions and inspiratory collapse. Pulmonary Artery * Normal visualized portions of the main pulmonary artery. - Attending Attestation I examined this patient and my medical decision-making was reviewed with the Resident Physician Dr. Calzada. I agree with the documented findings, disposition and treatment plan as described except to the extent set forth below. Mr. Trinidad is a 77 y/o F with known past medical history of PE, DVT, DM, COPD, GERD, HTN, HLD, CAD, hypothyroidism, sleep apnea, anxiety who presented to [facility] with complaints of shortness of breath and palpitations. Pt happened to be in Afib with RVR and acute CHF exacerbation. Pt was started on Cardizem gtt. Her HR in 90;s now Gen: a, A, O x 3 Chest: Diminsihed BS b/l, mild crackles, rales + Heart: s1S2+ Afib Ext: trace edema a/p 1. Acute on chronic hypoxic resp failure 2. Acute on chronic diastolic CHF exacerbation Reviewed 2D Echo showed preserved LVEF, indeterminate diastolic dysfunction cont IV Lasix 20mg BID strict I & O Card on board scheduled for stress test in AM 3. Acute new onset Afiv with RVR mostly triggered by CHF exacerbation cont IV Lasix will stay away from BB due to her COPD Started on PO Cardizem Try to wean her off the Cardizem gtt on Coumadin for anti coag
--- NOTE | 2018-02-09 13:24 | Cardiology Consult Note ---
<Beckie Guerrero - Last Filed: 02/09/18 13:31> Date of Encounter: 02/09/18 Time of Encounter: 09:30 Assessment and Plan (1) Atrial fibrillation with RVR Current Visit: Yes Status: Acute Per cardiology: -New onset a.fib. -Currently on cardizem drip. -Average HR 102, a.fib RVR. 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 INR therapeutic. -TTE pending. -Continue cardizem drip for HR less than 100. -Will stop BB with COPD. -Will stop norvasc for cardizem. -If rate controlled, plan for stress in am. (2) CAD (coronary artery disease) Current Visit: Yes Status: Chronic Per cardiology: -Known CAD s/p [facility] 10 years ago with mild CAD per patient report. -denies chest pain. -Troponins negative x4. -TTE pending. -TTE 2013 with preserved LVEF. -With new onset a.fib plan for possible stress in am. Qualifiers: Coronary Disease-Associated Artery/Lesion type: [place] artery [place] vs. transplanted heart: [place] heart Associated angina: without angina Qualified Code(s): I25.10 - Atherosclerotic heart disease of [place] coronary artery without angina pectoris Discussion w patient/family: The assessment and plan as outlined above was discussed with the patient who expressed understanding and agreement. All questions were answered. Thank you for involving us in the care of your patient. Please call with any questions. Discussed and reviewed with . History of Present Illness Consult date: 02/08/18 Requesting physician: Rocio Campbell Consult reason: a.fib Chief complaint: shortness of breath History of present illness: Ms. Trinidad is a 77 year old female with a relevant past medical history of PE, DVT, DM, COPD, GERD, HTN, HLD, CAD, hypothyroidism, sleep apnea, anxiety who presented to [facility] with complaints of shortness of breath. Patient also reported palpitations. Denies chest pain. Patient reports today her shortness of breath is back to baseline. Patient is O2 dependent at home. Past Med Surg Social Fam HX - Past Medical History Attestation: Yes The following information was validated with the patient. Source: patient, old records reviewed Medical history: COPD, diabetes, hypertension, other Additional medical history: DIVERTICULITIS Psychiatric history: no psych history - Past Surgical History Surgical History: appendectomy, cholecystectomy, hysterectomy Additional surgical history: TONSILECTOMY - Social History Smoking Status: Never smoker Smokeless Tobacco Status: No Alcohol use: none Drug use: none - Family History Father Adopted: No Family Member Ethnicity: Non- Living Status: Hx Family Cardiac Disorders: Yes (AK) Hx Family Respiratory Disorders: Yes (Emphysema) Hx Family Cancer: Yes Hx Family GI Disorders: No Hx Family Endocrine Disorder: Yes (DM) Hx Family Neuromuscular Disorders: No Hx Family Neurologic Disorders: No Hx Family HEENT Disorders: No Hx Family Autoimmune Disorders: No Medications and Allergies Albuterol Sulfate 2.5 mg PO TID 09/05/15 [History] Albuterol Sulfate [Albuterol Inhaler] 2 puff IH Q4H PRN 09/05/15 [History] Amlodipine Besylate 2.5 mg PO DAILY 09/05/15 [History] Atorvastatin [Lipitor] 10 mg PO HS 09/05/15 [History] Budesonide/Formoterol 160/4.5 [Symbicort 160/4.5] 2 puff IH BIDR 09/05/15 [ History] Ergocalciferol (VITAMIN D2) [Vitamin D2] 50,000 unit PO QWEEK 09/05/15 [History] Fenofibrate [Tricor] 54 mg PO DAILY 09/05/15 [History] Gabapentin [Neurontin] 100 mg PO TID 09/05/15 [History] Hydrocodone/Acetaminophen [[place] 7.5-325 Tablet] 1 tab PO Q6HR PRN 09/05/15 [ History] Isosorbide MONOnitrate [Isosorbide Mononitrate ER] 60 mg PO DAILY 09/05/15 [ History] Levothyroxine Sodium [Tirosint] 175 mcg PO DAILY 09/05/15 [History] Metoprolol [Lopressor] 50 mg PO BID 09/05/15 [History] Nitroglycerin [Nitrostat] 0.4 mg SL Q5-10MIN PRN 09/05/15 [History] Pantoprazole Sodium [Protonix] 40 mg PO DAILY 09/05/15 [History] Potassium Chloride [K-Tab ER] 20 meq PO BID 09/05/15 [History] Primidone [Mysoline] 50 mg PO HS 09/05/15 [History] Ranitidine HCl [Zantac] 150 mg PO BID 09/05/15 [History] Sertraline HCl [Zoloft] 100 mg PO BID 09/05/15 [History] Warfarin [Coumadin] [address] 09/05/15 [History] glipiZIDE [Glucotrol] 2.5 mg PO DAILY 09/05/15 [History] hydrOXYzine HCl [Hydroxyzine HCl] 25 mg PO TID 09/05/15 [History] Dicyclomine [Bentyl] 10 mg PO QID PRN 08/07/16 [History] Oxygen 2 l .ROUTE AD 08/07/16 [History] Warfarin [Coumadin] 2.5 mg PO MOTUWETHFRSA 08/07/16 [History] Furosemide [Lasix] 40 mg PO DAILY #30 tablet 08/09/16 [Rx] Cholestyramine 4 gm PO BIDAC 02/08/18 [History] 3 Allergy/AdvReac Type Severity Reaction Status Date / Time aspirin AdvReac Anaphylaxis Verified 09/04/15 20:11 metoclopramide [From Reglan] AdvReac See Verified 09/04/15 20:11 Comments prednisone AdvReac See Verified 09/04/15 20:11 Comments All Systems Review: The remainder of the systems were reviewed and are negative - Cardiovascular Cardiovascular: as per HPI, dyspnea on exertion, palpitations Physical Examination Vital Signs, Last 4 Hours Pulse Resp BP Pulse Ox 02/09/18 11:29 78 18 144/81 92 General: Conversant, No Apparent Distress HEENT: Atraumatic, Normocephaly, Mucus Membranes Moist Neck: No JVD, Normal carotid pulses Cardiac: Normal S1 and S2, No Murmur, Other (Irregularly irregular ) Lungs: Other (Inspiratory wheezes noted throughout. ) Neuro: Alert and responsive, No focal deficits noted Abdomen: Soft, Non-Tender Skin: No rashes noted on visualized skin Musculoskeletal: No Chest Wall Tenderness Extremities: No Clubbing, No Cyanosis, No Edema, Normal Pulses Results 02/09/18 08:25 02/09/18 08:25 Lab Results Active Medications Hydrocodone Bitart/Acetaminophen ([place] 7.5-325 Mg) 1 tab PO Q6HR PRN PRN Reason: Pain Stop: 08/10/18 16:11 Last Admin: 02/09/18 03:59 Dose: 1 tab Albuterol Sulfate (Albuterol Inhaler) 2 puff IH Q4H PRN PRN Reason: Shortness Of Breath Stop: 08/10/18 16:11 Albuterol Sulfate (Albuterol Sulfate) 2.5 mg PO TID [facility] Stop: 08/10/18 21:01 Last Admin: 02/09/18 08:49 Dose: Not Given Amlodipine Besylate (Norvasc) 2.5 mg PO DAILY [facility] Stop: 08/11/18 09:01 Last Admin: 02/09/18 08:45 Dose: 2.5 mg Atorvastatin Calcium (Lipitor) 10 mg PO HS [facility] Stop: 08/10/18 21:01 Last Admin: 02/08/18 21:16 Dose: 10 mg Budesonide/Formoterol Fumarate (Symbicort) 2 puff IH BIDR [facility] PRN Reason: Protocol Stop: 08/10/18 22:01 Last Admin: 02/09/18 07:41 Dose: 2 puff Cholestyramine Resin (Cholestyramine) 4 gm PO BIDAC [facility] Stop: 08/10/18 16:31 Last Admin: 02/09/18 08:44 Dose: 4 gm Dextrose/Water (Dextrose 50% (Syg)) 25 ml IVP AD PRN PRN Reason: Hypoglycemia Stop: 08/10/18 23:05 Dicyclomine HCl (Bentyl) 10 mg PO QID PRN PRN Reason: CRAMPING Stop: 08/10/18 16:11 Ergocalciferol (Drisdol (50,000 Unit)) 50,000 unit PO QWEEK [facility] Stop: 08/10/18 16:16 Last Admin: 02/08/18 18:25 Dose: Not Given Famotidine (Pepcid) 20 mg PO BID [facility] Stop: 08/10/18 21:01 Last Admin: 02/09/18 08:44 Dose: 20 mg Fenofibrate (Tricor) 54 mg PO DAILY [facility] PRN Reason: Protocol Stop: 08/11/18 09:01 Last Admin: 02/09/18 08:44 Dose: 54 mg Furosemide (Lasix) 40 mg PO DAILY [facility] Stop: 08/11/18 09:01 Last Admin: 02/09/18 08:44 Dose: 40 mg Gabapentin (Neurontin) 100 mg PO TID [facility] Stop: 08/10/18 21:01 Last Admin: 02/09/18 08:44 Dose: 100 mg Glipizide (Glucotrol) 2.5 mg PO DAILY [facility] Stop: 08/11/18 09:01 Last Admin: 02/09/18 08:45 Dose: 2.5 mg Glucagon (Glucagen) 1 mg IM ONCE PRN PRN Reason: Hypoglycemia Stop: 08/10/18 23:05 Glucose (Gluctose) 15 gm PO ONCE PRN PRN Reason: Hypoglycemia Stop: 08/10/18 23:05 Glucose (Gluctose) 30 gm PO ONCE PRN PRN Reason: Hypoglycemia Stop: 08/10/18 23:05 Hydroxyzine Pamoate (Hydroxyzine Pamoate) 25 mg PO TID [facility] Stop: 08/10/18 21:01 Last Admin: 02/09/18 08:45 Dose: 25 mg Diltiazem HCl 50 mg/ Sodium (Chloride) 50 mls @ 5 mls/hr IVC .Q10H [facility]; 5 MG/HR PRN Reason: Protocol Stop: 08/10/18 11:16 Last Infusion: 02/09/18 08:53 Dose: 12.5 mg/hr, 12.5 mls/hr Dextrose (Dextrose 5%) 1,000 mls @ 100 mls/hr IVC .Q10H PRN PRN Reason: HYPOGLYCEMIA Stop: 08/10/18 23:05 Insulin Human Lispro (Humalog) 0 units SQ HS [facility] PRN Reason: Protocol Stop: 08/11/18 21:01 Insulin Human Lispro (Humalog) 0 units SQ TIDAC [facility] PRN Reason: Protocol Stop: 08/11/18 07:31 Last Admin: 02/09/18 08:46 Dose: Not Given Isosorbide Mononitrate (Imdur) 60 mg PO DAILY [facility] Stop: 08/11/18 09:01 Last Admin: 02/09/18 08:44 Dose: 60 mg Levothyroxine Sodium (Synthroid) 175 mcg PO 0630 [facility] Stop: 08/11/18 06:31 Last Admin: 02/09/18 05:37 Dose: 175 mcg Naloxone HCl (Narcan) 0.4 mg IVP Q2MIN PRN PRN Reason: SEE COMMENTS Stop: 08/11/18 08:11 Nitroglycerin (Nitroglycerin) 0.4 mg SL Q5MIN PRN PRN Reason: CHEST PAIN Stop: 08/10/18 16:11 Omeprazole (Prilosec) 20 mg PO DAILY [facility] Stop: 08/11/18 09:01 Last Admin: 02/09/18 08:46 Dose: 20 mg Potassium Chloride (Potassium Chloride) 20 meq PO BIDWM [facility] Stop: 08/10/18 17:01 Last Admin: 02/09/18 08:45 Dose: 20 meq Primidone (Mysoline) 50 mg PO HS [facility] Stop: 08/10/18 21:01 Last Admin: 02/08/18 21:15 Dose: 50 mg Sertraline HCl (Zoloft) 100 mg PO BID [facility] Stop: 08/10/18 21:01 Last Admin: 02/09/18 08:44 Dose: 100 mg Warfarin Sodium (Coumadin) 2.5 mg PO [id number]@1800 [facility] Stop: 08/10/18 18:01 Last Admin: 02/08/18 18:25 Dose: 2.5 mg Warfarin Sodium (Coumadin) [address] [facility] Stop: 08/15/18 18:01 Laboratory Tests 02/08/18 02/08/18 02/08/18 10:23 10:23 10:23 Hgb 11.6 INR Potassium Creatinine Magnesium Troponin I < 0.03 B-Natriuretic Peptide 201 H TSH 3.015 02/08/18 02/09/18 02/09/18 18:05 00:43 04:28 Hgb INR Potassium Creatinine Magnesium Troponin I < 0.03 < 0.03 < 0.03 B-Natriuretic Peptide TSH 02/09/18 02/09/18 02/09/18 08:25 08:25 08:25 Hgb 10.1 L D INR 2.6 Potassium 3.5 Creatinine 0.58 L Magnesium 1.8 Troponin I B-Natriuretic Peptide TSH - Imaging and Cardiology Chest Xray: report reviewed Stress Test: pending Echo: pending, report reviewed - EKG Interpretation EKG results cardiology: personally reviewed (ECG with rimmafib RVR, HR 129. Non- specific ST and T wave changes noted.), other (Telemetry reviewed with average HR previous 12 hours noted to be 102, a.fib. PVCs noted.) Consult Discharge Plan - Plan Referrals: Jermain Mtz MD [Primary Care Provider] - <Mitch Smith - Last Filed: 02/09/18 15:58> Date of Encounter: 02/09/18 - Attending Attestation I have personally performed a face to face evaluation on this patient. I have reviewed and agree with the care plan. History and Exam by me shows: 77 YOF with DVT's and PE in past on chronic coumadin found to have new onset Aib Titrate on cardiazem PO and wean off BB (COPD) Stress test as an OP Assessment and Plan Discussion w patient/family: The assessment and plan as outlined above was discussed with the patient and/or family members who expressed understanding and agreement. All questions were answered. Thank you for involving us in the care of your patient. Please call with any questions. History of Present Illness History of present illness: Ms. Trinidad is a 77 year old female All Systems Review: The remainder of the systems were reviewed and are negative Physical Examination Vital Signs, Last 4 Hours Temp Pulse Resp BP Pulse Ox 02/09/18 15:29 98 F 88 18 119/74 97 Results 02/09/18 08:25 02/09/18 08:25
[2018-02-09] MEDS ORDERED: hydrALAZINE 10 MG TABLET PO PRN (15:27)
[2018-02-09] MEDS ORDERED: *HR* Warfarin 2 MG TABLET PO ONE (18:00)
[2018-02-09] MEDS ORDERED: Warfarin perPT PO PRN (18:00)
[2018-02-09] MEDS: Primidone 50 MG TABLET PO SCH (22:29)
[2018-02-10] MEDS: *HR* HYDROcodone/Acet 7.5/325 mg TABLET PO PRN ×3 (01:46→19:26)
[2018-02-10 04:46] LABS: INR 2.9; Prothrombin Time 32.5 Seconds (9.4-12.1)
[2018-02-10] MEDS: Budesonide/Formoterol 160/4.5 MDI IH SCH ×2 (07:26→19:49)
--- NOTE | 2018-02-10 08:24 | Cardiology Progress Note ---
Date of Encounter: 02/10/18 Time of Encounter: 08:20 Assessment and Plan (1) Atrial fibrillation with RVR Current Visit: Yes Status: Acute Per Cardiology: New onset a.fib. Telemetry shows average heart rate 103 the past 12 hours, currently A. fib in the 100s to 110s. Remains on Cardizem drip at 12.5 mg per hour. Systolic blood pressures in the 130s. We will titrate Cardizem to 90 mg by mouth every 6 hours. Will attempt to wean IV Cardizem drip to off. May need to consider addition of other rate controlling agent. Currently on cardizem drip-- no stress test today, can ebal if clinically warranted. Discussed and reviewed with primary service. Known history of COPD requiring home oxygen, suspect respiratory status driving elevated heart rates. 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 INR therapeutic. (2) CAD (coronary artery disease) Current Visit: Yes Status: Chronic Per cardiology: Known CAD s/p [facility] 10 years ago with mild CAD per patient report. Denies chest pain. Troponins negative x4. Echo: Impressions: LVEF 60%. Normal LV chamber size, wall thickness and function. Indeterminate diastolic function. Normal right ventricular structure and function. Mild mitral regurgitation. Mild tricuspid regurgitation. No pulmonary hypertension. Left Ventricular Wall Motion: Rest Echo Findings All wall segments showed normal motion. Qualifiers: Coronary Disease-Associated Artery/Lesion type: [place] artery [place] vs. transplanted heart: [place] heart Associated angina: without angina Qualified Code(s): I25.10 - Atherosclerotic heart disease of [place] coronary artery without angina pectoris Discussion w patient/family: The assessment and plan as outlined above was discussed with the patient and/or family members who expressed understanding and agreement. All questions were answered. Thank you for involving us in the care of your patient. Please call with any questions. Subjective Principal diagnosis: Afib RVR Interval history: Patient denies any chest pain, palpitations, dizziness, any active bleeding or blood loss. Reports shortness of breath about baseline-- does utilize home oxygen. Complaint of nausea this morning. Objective Vital Signs, Last 4 Hours Temp Pulse Resp BP Pulse Ox 02/10/18 07:28 17 96 02/10/18 06:00 98.1 F 102 17 139/96 96 02/10/18 05:26 98.3 F 102 15 139/92 95 General: Conversant, No Apparent Distress HEENT: Atraumatic, Normocephaly, Mucus Membranes Moist Neck: No JVD, Normal carotid pulses Cardiac: No Murmur, Other (Irregularly irregular) Lungs: Other (Mild conversational dyspnea noted, diminished breath sounds throughout) Neuro: Alert and responsive, No focal deficits noted Abdomen: Soft, Non-Tender Skin: No rashes noted on visualized skin Musculoskeletal: No Chest Wall Tenderness Extremities: No Clubbing, No Cyanosis, No Edema, Normal Pulses Results 02/09/18 08:25 02/09/18 08:25 Lab Results Laboratory Tests 02/08/18 02/08/18 02/09/18 10:23 18:05 00:43 INR Magnesium Troponin I < 0.03 < 0.03 < 0.03 TSH 3.015 02/09/18 02/09/18 02/10/18 04:28 08:25 03:54 INR 2.9 Magnesium 1.8 Troponin I < 0.03 TSH ITS Impressions Chest X-Ray 02/08/18 10:02 IMPRESSION: Findings suggest congestive heart failure D/ / Sacha Molina MD / Sacha Molina MD Interpreting Provider: Sacha Molina MD Abdomen/Pelvis CTA 02/08/18 10:04 IMPRESSION: No evidence for acute vascular pathology to include no evidence for aortic aneurysm or dissection. Small bilateral pleural effusions along with findings compatible with mild interstitial and pulmonary edema. Right hilar lymphadenopathy, nonspecific but possibly reactive. Prior cholecystectomy. There is nonspecific fat stranding in the surgical bed, new from prior CT abdomen and pelvis 09/04/2015 of uncertain etiology. This could reflect nonspecific inflammatory process in the region. Nonspecific subcutaneous fat stranding to the anterior abdominal wall, right more than left. No focal fluid collections or soft tissue gas. Fat-containing ventral abdominal wall hernia. Colonic diverticulosis without evidence for diverticulitis. D/ / 02/08/2018 12:22:37 Anselmo Connolly MD / [email or web address] Interpreting Provider: Anselmo Connolly MD Chest CTA 02/08/18 10:04 IMPRESSION: No evidence for acute vascular pathology to include no evidence for aortic aneurysm or dissection. Small bilateral pleural effusions along with findings compatible with mild interstitial and pulmonary edema. Right hilar lymphadenopathy, nonspecific but possibly reactive. Prior cholecystectomy. There is nonspecific fat stranding in the surgical bed, new from prior CT abdomen and pelvis 09/04/2015 of uncertain etiology. This could reflect nonspecific inflammatory process in the region. Nonspecific subcutaneous fat stranding to the anterior abdominal wall, right more than left. No focal fluid collections or soft tissue gas. Fat-containing ventral abdominal wall hernia. Colonic diverticulosis without evidence for diverticulitis. D/ / 02/08/2018 12:22:37 Anselmo Connolly MD / earnold Interpreting Provider: Anselmo Connolly MD Echocardiogram 02/09/18 16:24 Impressions: LVEF 60%. Normal LV chamber size, wall thickness and function. Indeterminate diastolic function. Normal right ventricular structure and function. Mild mitral regurgitation. Mild tricuspid regurgitation. No pulmonary hypertension. Left Ventricular Wall Motion: Rest Echo Findings All wall segments showed normal motion. Findings: Study Quality * Technically adequate exam. ECG Findings * Normal sinus rhythm. Left Ventricle * LVEF 60%. * Normal LV chamber size, wall thickness and function. * Indeterminate diastolic function. Right Ventricle * Normal right ventricular structure and function. Left Atrium * Moderately dilated left atrium. Right Atrium * Mildly dilated right atrium. Aortic Valve * Trileaflet aortic valve. * Mildly sclerotic aortic valve leaflets. * No aortic regurgitation. * No aortic stenosis. Mitral Valve * Mild mitral annular calcification * Mild mitral regurgitation. * No mitral stenosis. Tricuspid Valve * Normal tricuspid valve structure. * Mild tricuspid regurgitation. * No pulmonary hypertension. Pulmonic Valve * Normal pulmonic valve structure and function. * Trace pulmonic regurgitation. Aorta * Normally sized aortic root. Pericardium * The pericardium appears normal. IVC * Normal IVC dimensions and inspiratory collapse. Pulmonary Artery * Normal visualized portions of the main pulmonary artery. Active Medications Hydrocodone Bitart/Acetaminophen ([place] 7.5-325 Mg) 1 tab PO Q6HR PRN PRN Reason: Pain Stop: 08/10/18 16:11 Last Admin: 02/10/18 01:46 Dose: 1 tab Albuterol Sulfate (Albuterol Inhaler) 2 puff IH Q4H PRN PRN Reason: Shortness Of Breath Stop: 08/10/18 16:11 Albuterol Sulfate (Albuterol Sulfate) 2.5 mg PO TID [facility] Stop: 08/10/18 21:01 Last Admin: 02/09/18 17:04 Dose: Not Given Atorvastatin Calcium (Lipitor) 10 mg PO HS [facility] Stop: 08/10/18 21:01 Last Admin: 02/09/18 22:28 Dose: 10 mg Budesonide/Formoterol Fumarate (Symbicort) 2 puff IH BIDR [facility] PRN Reason: Protocol Stop: 08/10/18 22:01 Last Admin: 02/10/18 07:26 Dose: 2 puff Cholestyramine Resin (Cholestyramine) 4 gm PO BIDAC [facility] Stop: 08/10/18 16:31 Last Admin: 02/09/18 17:12 Dose: 4 gm Dextrose/Water (Dextrose 50% (Syg)) 25 ml IVP AD PRN PRN Reason: Hypoglycemia Stop: 08/10/18 23:05 Dicyclomine HCl (Bentyl) 10 mg PO QID PRN PRN Reason: CRAMPING Stop: 08/10/18 16:11 Diltiazem HCl (Cardizem) 60 mg PO Q8HR [facility] Stop: 08/11/18 16:01 Last Admin: 02/10/18 00:14 Dose: 60 mg Ergocalciferol (Drisdol (50,000 Unit)) 50,000 unit PO QWEEK [facility] Stop: 08/10/18 16:16 Last Admin: 02/08/18 18:25 Dose: Not Given Famotidine (Pepcid) 20 mg PO BID [facility] Stop: 08/10/18 21:01 Last Admin: 02/09/18 22:29 Dose: 20 mg Fenofibrate (Tricor) 54 mg PO DAILY [facility] PRN Reason: Protocol Stop: 08/11/18 09:01 Last Admin: 02/09/18 08:44 Dose: 54 mg Furosemide (Lasix) 40 mg PO DAILY [facility] Stop: 08/11/18 09:01 Last Admin: 02/09/18 08:44 Dose: 40 mg Gabapentin (Neurontin) 100 mg PO TID [facility] Stop: 08/10/18 21:01 Last Admin: 02/09/18 22:29 Dose: 100 mg Glucagon (Glucagen) 1 mg IM ONCE PRN PRN Reason: Hypoglycemia Stop: 08/10/18 23:05 Glucose (Gluctose) 15 gm PO ONCE PRN PRN Reason: Hypoglycemia Stop: 08/10/18 23:05 Glucose (Gluctose) 30 gm PO ONCE PRN PRN Reason: Hypoglycemia Stop: 08/10/18 23:05 Hydralazine HCl (Hydralazine) 10 mg PO Q6HR PRN PRN Reason: Blood Pressure - High Stop: 08/11/18 15:28 Hydroxyzine Pamoate (Hydroxyzine Pamoate) 25 mg PO TID [facility] Stop: 08/10/18 21:01 Last Admin: 02/09/18 22:28 Dose: 25 mg Diltiazem HCl 50 mg/ Sodium (Chloride) 50 mls @ 5 mls/hr IVC .Q10H [facility]; 5 MG/HR PRN Reason: Protocol Stop: 08/10/18 11:16 Last Infusion: 02/10/18 01:05 Dose: Infused Dextrose (Dextrose 5%) 1,000 mls @ 100 mls/hr IVC .Q10H PRN PRN Reason: HYPOGLYCEMIA Stop: 08/10/18 23:05 Insulin Human Lispro (Humalog) 0 units SQ [facility] PRN Reason: Protocol Stop: 08/11/18 21:01 Last Admin: 02/09/18 22:28 Dose: Not Given Insulin Human Lispro (Humalog) 0 units SQ TIDAC [facility] PRN Reason: Protocol Stop: 08/11/18 07:31 Last Admin: 02/09/18 17:12 Dose: Not Given Isosorbide Mononitrate (Imdur) 60 mg PO DAILY [facility] Stop: 08/11/18 09:01 Last Admin: 02/09/18 08:44 Dose: 60 mg Levothyroxine Sodium (Synthroid) 175 mcg PO 0630 [facility] Stop: 08/11/18 06:31 Last Admin: 02/10/18 06:20 Dose: 175 mcg Naloxone HCl (Narcan) 0.4 mg IVP Q2MIN PRN PRN Reason: SEE COMMENTS Stop: 08/11/18 08:11 Nitroglycerin (Nitroglycerin) 0.4 mg SL Q5MIN PRN PRN Reason: CHEST PAIN Stop: 08/10/18 16:11 Omeprazole (Prilosec) 20 mg PO DAILY [facility] Stop: 08/11/18 09:01 Last Admin: 02/09/18 08:46 Dose: 20 mg Potassium Chloride (Potassium Chloride) 20 meq PO BIDWM [facility] Stop: 08/10/18 17:01 Last Admin: 02/09/18 17:12 Dose: 20 meq Primidone (Mysoline) 50 mg PO HS [facility] Stop: 08/10/18 21:01 Last Admin: 02/09/18 22:29 Dose: 50 mg Sertraline HCl (Zoloft) 100 mg PO BID [facility] Stop: 08/10/18 21:01 Last Admin: 02/09/18 22:28 Dose: 100 mg Warfarin Sodium (Coumadin Perpt) 1 each PO DAILY@1800 PRN PRN Reason: SEE COMMENTS Stop: 08/11/18 18:01 - Imaging and Cardiology Stress Test: pending Echo: report reviewed - EKG Interpretation EKG results cardiology: other (Telemetry reviewed with average heart rate the past 12 hours 103, currently in the 100s to 110s, A. fib) Consult Discharge Plan - Plan Referrals: Jermain Mtz MD [Primary Care Provider] -
[2018-02-10] MEDS ORDERED: Ondansetron 4 MG/2 ML VIAL IVP ONE (09:43)
[2018-02-10] MEDS ORDERED: Ondansetron 4 MG/2 ML VIAL ONE (09:44)
[2018-02-10] MEDS: Gabapentin 100 MG CAPSULE PO SCH ×3 (09:45→20:23)
[2018-02-10] MEDS: Famotidine 20 MG TABLET PO SCH ×2 (09:45→20:23)
[2018-02-10] MEDS: Furosemide 40 MG TABLET PO SCH (09:45)
[2018-02-10] MEDS: hydrOXYzine pamoate 25 MG CAPSULE PO SCH ×3 (09:45→20:23)
[2018-02-10] MEDS: Fenofibrate 54 MG TABLET PO SCH (09:45)
[2018-02-10] MEDS: Isosorbide MONOnitrate (24 HR) 60 MG TAB.ER.24H PO SCH (09:45)
[2018-02-10 09:46] LABS: Basophils % 0.3 %; Eosinophils # 0.1 K/mcL (0.0-0.6); Eosinophils % 1.9 %; Hematocrit 33.3 % (35.3-44.9); Hemoglobin 10.3 g/dL (11.5-15.4); Immature Granulocytes % 0.4 % (0-4); Lymphocytes # 0.9 K/mcL (0.6-4.6); Lymphocytes % 13.9 %; Mean Corpuscular HGB Conc 30.9 g/dL (31.6-35.5); Mean Corpuscular Hemoglobin 29.1 pg (28.0-33.3); Mean Corpuscular Volume 94.1 fL (83.0-100.0); Mean Platelet Volume 9.4 fL (9.4-12.4); Monocytes # 0.4 K/mcL (0.0-1.3); Monocytes % 5.8 %; Neutrophils # 5.2 K/mcL (1.6-8.9); Platelet Count 115 K/mcL (140-400); Red Blood Count 3.54 M/mcL (3.82-4.97); Red Cell Distribution Width 15.5 % (11.5-14.5); Segmented Neutrophils % 77.7 %
[2018-02-10] MEDS: Cholestyramine 4 GM POWD.PACK PO SCH ×2 (09:46→15:21)
[2018-02-10] MEDS: Insulin LISPRO 300 UNITS/3 ML VIAL SQ SCH ×4 (09:53→22:49)
--- NOTE | 2018-02-10 10:09 | Internal Med Progress Note ---
<Abdelrahman Calzada - Last Filed: 02/10/18 19:41> Date of Encounter: 02/10/18 Time of Encounter: 08:45 - Assessment and plan (1) Atrial fibrillation with RVR Current Visit: Yes Status: Acute Assessment and plan: - likely secondary to her diastolic CHF- BNP: 201, CTA showed pleural effusions and mid interstitial edema and pulmonary edema. she continues to be in Afib RVR. - patient is currently on 12.5 Cardizem drip- will wean of on the drip and switch to PO Cardizem depending upon the patient's hemodynamic status - Cardiology is on board. may do a stress test if the patient's condition is stable - Metoprolol has been discontinued due to her PMHx of COPD. - continue monitoring Is/Os, watch for any meds that can contribute to tachycardia (2) CHF (congestive heart failure) Current Visit: Yes Status: Acute Assessment and plan: -patient presented with JOHNSON and mild orthopnea, BNP: 201, - I/O = -760 mL, weight gain 0.9 kg since yesterday, - CTA: showed interstitial and pulmonary edema, with small b/l pleural effusions. Echo showed preserved EF (60%) - Currently patient is on 40 mg Furosemide PO - Cardiology has been consulted and they recommended holding off on Metoprolol owing to her PMHx of COPD - continue to monitor her Is/Os . Monitor sings of any hemodynamic instability (3) COPD (chronic obstructive pulmonary disease) Current Visit: No Status: Chronic Assessment and plan: - patient has a Hx of COPD, is on 3L home O2. - no duoneb treatment has been given. Xopenex q6h PRN added for COPD . - we will continue to monitor her vitals for any potential COPD exacerbation Qualifiers: COPD type: unspecified COPD Qualified Code(s): J44.9 - Chronic obstructive pulmonary disease, unspecified (4) Hypertension, essential Current Visit: No Status: Chronic Assessment and plan: - patient has a PMH of HTN - she was hypertensive in the morning - currently her BP is improving, this could be secondary to her being on Cardizem 12.5 mg drip (5) Diabetes mellitus type 2, noninsulin dependent Current Visit: No Status: Chronic Assessment and plan: We will continue home regimen and start the patient and insulin sliding scale with moderate coverage (6) DVT prophylaxis Current Visit: No Status: Acute Assessment and plan: She is on chronic anticoagulation with 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 She's currently on 12.5 mg Cardizem . her systolic blood pressure remains elevated 140. I ordered Xopenex PRN to help her with her breathing (she has a PMHx of COPD) . Overall patient looks in acute distress secondary to her Afib RVR . Cardiology is on board - Constitutional Vitals: Temp Pulse Resp BP Pulse Ox 98.1 F 102 17 139/96 96 02/10/18 06:00 02/10/18 06:00 02/10/18 07:28 02/10/18 06:00 02/10/18 07:28 General appearance: Present: A&O X 3, morbidly obese Exam: mild distress - Head Head exam: Present: atraumatic, normal inspection, normocephalic - Respiratory Additional comments: CTAB without rales, ronchi or wheezing - Cardiovascular Additional comments: Normal S1 and S2, Irregular rhythm, no peripheral edema , cyanosis or pallor, no carotid bruits - GI/Abdominal Additional comments: soft, non-tender, no guarding or rebound tenderness - Extremities Exam Additional comments: no pedal edema, ROM appropriate for age, pulses symmetrical Internal Medicine: Result - Labs CBC & Chem 7: 02/10/18 09:29 02/09/18 08:25 Labs: Short CBC 02/10/18 Range/Units 09:29 WBC 6.7 (4.3-11.1) K/mcL Hgb 10.3 L (11.5-15.4) g/dL Hct 33.3 L (35.3-44.9) % Plt Count 115 L (140-400) K/mcL Neutrophils # 5.2 (1.6-8.9) K/mcL - ABG Interpretation ABG results: PT/INR, D-dimer PT 32.5 Seconds (9.4-12.1) H 02/10/18 03:54 - Impressions Impressions Echocardiogram 02/09/18 16:24 Impressions: LVEF 60%. Normal LV chamber size, wall thickness and function. Indeterminate diastolic function. Normal right ventricular structure and function. Mild mitral regurgitation. Mild tricuspid regurgitation. No pulmonary hypertension. Left Ventricular Wall Motion: Rest Echo Findings All wall segments showed normal motion. Findings: Study Quality * Technically adequate exam. ECG Findings * Normal sinus rhythm. Left Ventricle * LVEF 60%. * Normal LV chamber size, wall thickness and function. * Indeterminate diastolic function. Right Ventricle * Normal right ventricular structure and function. Left Atrium * Moderately dilated left atrium. Right Atrium * Mildly dilated right atrium. Aortic Valve * Trileaflet aortic valve. * Mildly sclerotic aortic valve leaflets. * No aortic regurgitation. * No aortic stenosis. Mitral Valve * Mild mitral annular calcification * Mild mitral regurgitation. * No mitral stenosis. Tricuspid Valve * Normal tricuspid valve structure. * Mild tricuspid regurgitation. * No pulmonary hypertension. Pulmonic Valve * Normal pulmonic valve structure and function. * Trace pulmonic regurgitation. Aorta * Normally sized aortic root. Pericardium * The pericardium appears normal. IVC * Normal IVC dimensions and inspiratory collapse. Pulmonary Artery * Normal visualized portions of the main pulmonary artery. Consult Discharge Plan - Plan Referrals: Jermain Mtz MD [Primary Care Provider] - <Dahlia Yepez - Last Filed: 02/11/18 08:06> Date of Encounter: 02/10/18 - Assessment and plan (1) COPD (chronic obstructive pulmonary disease) Current Visit: No Status: Chronic Qualifiers: COPD type: unspecified COPD Qualified Code(s): J44.9 - Chronic obstructive pulmonary disease, unspecified (2) Hypertension, essential Current Visit: No Status: Chronic (3) Diabetes mellitus type 2, noninsulin dependent Current Visit: No Status: Chronic (4) DVT prophylaxis Current Visit: No Status: Acute (5) Atrial fibrillation with RVR Current Visit: Yes Status: Acute (6) CHF exacerbation Current Visit: Yes Status: Acute Qualifiers: Heart failure type: diastolic Qualified Code(s): I50.33 - Acute on chronic diastolic (congestive) heart failure (7) CHF (congestive heart failure) Current Visit: Yes Status: Acute - Time Spent With Patient Total time spent is greater than 50% in coordination of care (as documented) at patient's floor/unit and/or counseling patient: - Constitutional Vitals: Temp Pulse Resp BP Pulse Ox 98.0 F 93 19 116/65 95 02/10/18 16:00 02/10/18 16:00 02/10/18 16:00 02/10/18 16:00 02/10/18 16:00 Internal Medicine: Result - Labs CBC & Chem 7: 02/10/18 09:29 02/11/18 03:41 Labs: Short CBC 02/10/18 Range/Units 09:29 WBC 6.7 (4.3-11.1) K/mcL Hgb 10.3 L (11.5-15.4) g/dL Hct 33.3 L (35.3-44.9) % Plt Count 115 L (140-400) K/mcL Neutrophils # 5.2 (1.6-8.9) K/mcL - ABG Interpretation ABG results: PT/INR, D-dimer PT 32.5 Seconds (9.4-12.1) H 02/10/18 03:54 - Attending Attestation I examined this patient and my medical decision-making was reviewed with the Resident Physician Dr. Calzada. I agree with the documented findings, disposition and treatment plan as described except to the extent set forth below. Mr. Trinidad is a 77 y/o F with known past medical history of PE, DVT, DM, COPD, GERD, HTN, HLD, CAD, hypothyroidism, sleep apnea, anxiety who presented to [facility] with complaints of shortness of breath and palpitations. Pt happened to be in Afib with RVR and acute CHF exacerbation. Pt was started on Cardizem gtt. Her HR in 90;s now Gen: a, A, O x 3 Chest: Diminished BS b/l, mild crackles, rales + Heart: s1S2+ Afib Ext: trace edema a/p 1. Acute on chronic hypoxic resp failure 2. Acute on chronic diastolic CHF exacerbation Reviewed 2D Echo showed preserved LVEF, indeterminate diastolic dysfunction cont IV Lasix 20mg BID strict I & O Card on board unable to do stress test since pt's HR is still not well controlled 3. Acute new onset Afib with RVR mostly triggered by CHF exacerbation cont IV Lasix will stay away from BB due to her COPD Cont PO Cardizem May need ot add BB too Try to wean her off the Cardizem gtt on Coumadin for anti coag
[2018-02-10] MEDS ORDERED: Simethicone 80 MG TAB.CHEW PO PRN (11:51)
[2018-02-10] MEDS ORDERED: Levalbuterol Neb 0.63 MG/3 ML IH SCH (16:00)
[2018-02-10] MEDS ORDERED: Levalbuterol 1 PUFF INHALER IH SCH (16:00)
[2018-02-10] MEDS ORDERED: 0.9 % Sodium Chloride 500 ML ONE (17:59)
[2018-02-10] MEDS ORDERED: Levalbuterol 1 PUFF INHALER IH PRN (19:20)
[2018-02-10] MEDS: Primidone 50 MG TABLET PO SCH (20:23)
[2018-02-11] MEDS: *HR* HYDROcodone/Acet 7.5/325 mg TABLET PO PRN ×2 (04:06→20:22)
[2018-02-11 04:28] LABS: INR 2.1; Prothrombin Time 23.2 Seconds (9.4-12.1)
[2018-02-11 04:35] LABS: BUN/Creatinine Ratio 15 (6-26); Blood Urea Nitrogen 9 mg/dL (8-23); Calcium 9.2 mg/dL (8.6-10.3); Carbon Dioxide 28 mEq/L (23-29); Chloride 102 mEq/L (98-107); Glucose 169 mg/dL (70-105); Osmolality,Calculated 289 (280-300); Potassium 4.2 mEq/L (3.5-5.1); Sodium 138 mEq/L (136-145); eGFR For African Americans > 60 (> 60); eGFR For Non-African Americans > 60 (> 60)
[2018-02-11] MEDS: Budesonide/Formoterol 160/4.5 MDI IH SCH ×2 (07:38→21:10)
--- NOTE | 2018-02-11 08:14 | Cardiology Progress Note ---
Date of Encounter: 02/11/18 Time of Encounter: 08:15 Assessment and Plan (1) Atrial fibrillation with RVR Current Visit: Yes Status: Acute Per Cardiology: New onset a.fib. Telemetry shows average heart rate 95 the past 12 hours, currently A. fib in the 90s-90s Remains on Cardizem drip at 5 mg per hour. Systolic blood pressures in the 110s-120's. We will convert to Cardizem CD 360 mg by mouth daily. Patient reevaluated and now off IV Cardizem drip remains A. fib in the 80s. We will proceed with nonexercise nuclear stress test today as previously recommended by Dr. Smith. 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 INR therapeutic. (2) CAD (coronary artery disease) Current Visit: Yes Status: Chronic Per cardiology: Known CAD s/p LHC 10 years ago with mild CAD per patient report. Denies chest pain. Troponins negative x4. Echo: Impressions: LVEF 60%. Normal LV chamber size, wall thickness and function. Indeterminate diastolic function. Normal right ventricular structure and function. Mild mitral regurgitation. Mild tricuspid regurgitation. No pulmonary hypertension. Left Ventricular Wall Motion: Rest Echo Findings All wall segments showed normal motion. Qualifiers: Coronary Disease-Associated Artery/Lesion type: [place] artery [place] vs. transplanted heart: [place] heart Associated angina: without angina Qualified Code(s): I25.10 - Atherosclerotic heart disease of [place] coronary artery without angina pectoris Discussion w patient/family: The assessment and plan as outlined above was discussed with the patient and/or family members who expressed understanding and agreement. All questions were answered. Thank you for involving us in the care of your patient. Please call with any questions. Subjective Principal diagnosis: Afib RVR Interval history: Patient reports overall improvement this morning. She denies any chest pain or palpitations. Reports short of breath has improved. Reports resolution of nausea. Objective Vital Signs, Last 4 Hours Temp Pulse Resp BP Pulse Ox 02/11/18 07:47 97.9 F 92 16 127/95 95 02/11/18 07:38 16 94 02/11/18 06:00 97.8 F 97 15 119/89 95 General: Conversant, No Apparent Distress HEENT: Atraumatic, Normocephaly, Mucus Membranes Moist Neck: No JVD, Normal carotid pulses Cardiac: Normal S1 and S2, No Murmur, Other (Irregularly irregular) Lungs: Normal Breath Sounds, No Wheeze, Rales, Rhonchi Neuro: Alert and responsive, No focal deficits noted Abdomen: Soft, Non-Tender Skin: No rashes noted on visualized skin Musculoskeletal: No Chest Wall Tenderness Extremities: No Clubbing, No Cyanosis, No Edema, Normal Pulses Results 02/10/18 09:29 02/11/18 03:41 Lab Results 02/10/18 02/11/18 02/11/18 09:29 03:41 03:41 WBC 6.7 Hgb 10.3 L Hct 33.3 L Plt Count 115 L INR 2.1 Sodium 138 Potassium 4.2 Chloride 102 Carbon Dioxide 28 BUN 9 Creatinine 0.61 Glucose 169 H Calcium 9.2 - Imaging and Cardiology Stress Test: pending - EKG Interpretation EKG results cardiology: other (Telemetry reviewed with average heart rate is 12 hours 95, currently A. fib in the 80s to 90s, no events noted) Consult Discharge Plan - Plan Referrals: Jermain Mtz MD [Primary Care Provider] -
[2018-02-11] MEDS: Insulin LISPRO 300 UNITS/3 ML VIAL SQ SCH ×4 (08:26→20:24)
[2018-02-11] MEDS: Diltiazem CD (24hr) 180 MG CAPSULE PO SCH (08:27)
[2018-02-11] MEDS: Ondansetron 4 MG/2 ML VIAL IVP PRN (09:26)
[2018-02-11] MEDS ORDERED: Regadenoson 0.4 MG/5 ML SYRINGE IVP ONE (10:13)
[2018-02-11] MEDS: hydrOXYzine pamoate 25 MG CAPSULE PO SCH ×3 (13:16→20:22)
[2018-02-11] MEDS: Gabapentin 100 MG CAPSULE PO SCH ×3 (13:16→20:22)
[2018-02-11] MEDS: Isosorbide MONOnitrate (24 HR) 60 MG TAB.ER.24H PO SCH (13:22)
[2018-02-11] MEDS: Famotidine 20 MG TABLET PO SCH ×2 (13:22→20:22)
[2018-02-11] MEDS: Fenofibrate 54 MG TABLET PO SCH (13:22)
[2018-02-11] MEDS: Furosemide 40 MG TABLET PO SCH (13:23)
[2018-02-11] MEDS: Cholestyramine 4 GM POWD.PACK PO SCH ×2 (13:23→16:51)
[2018-02-11] MEDS: Furosemide 20 MG/2 ML VIAL IVP SCH ×2 (16:51→22:26)
[2018-02-11] MEDS ORDERED: *HR* Warfarin 3 MG TABLET PO ONE (18:00)
--- NOTE | 2018-02-11 18:47 | Internal Med Progress Note ---
<Abdelrahman Calzada - Last Filed: 02/11/18 20:33> Date of Encounter: 02/11/18 Time of Encounter: 10:15 - Assessment and plan (1) Atrial fibrillation with RVR Current Visit: Yes Status: Acute Assessment and plan: - likely secondary to her diastolic CHF- BNP: 201, CTA showed pleural effusions and mid interstitial edema and pulmonary edema. she continues to be in Afib RVR. - patient is currently being weaned off the cardizem drip and switch to PO Cardizem depending upon the patient's hemodynamic status - Cardiology is on board. Stress test result pending. - Metoprolol has been discontinued due to her PMHx of COPD. - continue monitoring Is/Os, watch for any meds that can contribute to tachycardia (2) COPD (chronic obstructive pulmonary disease) Current Visit: No Status: Chronic Assessment and plan: - patient has a Hx of COPD, is on 3L home O2. - we will continue to monitor her vitals for any potential COPD exacerbation Qualifiers: COPD type: unspecified COPD Qualified Code(s): J44.9 - Chronic obstructive pulmonary disease, unspecified (3) Hypertension, essential Current Visit: No Status: Chronic Assessment and plan: - patient has a PMH of HTN - currently her BP is improving, this could be secondary to her being on Cardizem 12.5 mg drip (4) Diabetes mellitus type 2, noninsulin dependent Current Visit: No Status: Chronic Assessment and plan: We will continue home regimen and start the patient and insulin sliding scale with moderate coverage (5) DVT prophylaxis Current Visit: No Status: Acute Assessment and plan: She is on chronic anticoagulation with warfarin for history of DVT and PE INR therapeutic range (6) CHF (congestive heart failure) Current Visit: Yes Status: Acute Assessment and plan: -patient presented with JOHNSON and mild orthopnea, BNP: 201, - I/O = -3425 mL, - CTA: showed interstitial and pulmonary edema, with small b/l pleural effusions. Echo showed preserved EF (60%) - Currently patient is on 40 mg Furosemide PO - Cardiology has been consulted and they recommended holding off on Metoprolol owing to her PMHx of COPD - continue to monitor her Is/Os . Monitor sings of any hemodynamic instability Qualifiers: Heart failure type: diastolic Qualified Code(s): I50.31 - Acute diastolic ( congestive) heart failure - Time Spent With Patient Total time spent is greater than 50% in coordination of care (as documented) at patient's floor/unit and/or counseling patient: - Subjective Interval history: she continues to be in Afib RVR with beats averaging around 105 when i spoke to the patient. Patient weaning off cardizem drip . Overall patient looks in acute distress secondary to her Afib RVR . Cardiology is on board - Constitutional Vitals: Temp Pulse Resp BP Pulse Ox 98.0 F 117 18 98/73 96 02/11/18 15:30 02/11/18 15:30 02/11/18 15:30 02/11/18 15:30 02/11/18 15:30 General appearance: Present: A&O X 3, morbidly obese - Head Additional comments: atraumatic, normal inspection, normocephalic - Respiratory Additional comments: CTAB without rales, ronchi or wheezing - Cardiovascular Additional comments: Normal S1 and S2, Irregular rhythm, no peripheral edema , cyanosis or pallor, no carotid bruits - GI/Abdominal Additional comments: soft, non-tender, no guarding or rebound tenderness - Extremities Exam Additional comments: no pedal edema, ROM appropriate for age, pulses symmetrical Internal Medicine: Result - Labs CBC & Chem 7: 02/10/18 09:29 02/11/18 03:41 Labs: BMP 02/11/18 03:41 Sodium 138 Potassium 4.2 Chloride 102 Carbon Dioxide 28 BUN 9 Creatinine 0.61 Glucose 169 H Calcium 9.2 - ABG Interpretation ABG results: PT/INR, D-dimer PT 23.2 Seconds (9.4-12.1) H 02/11/18 03:41 Consult Discharge Plan - Plan Referrals: Jermain Mtz MD [Primary Care Provider] - <Dahlia Yepez - Last Filed: 02/12/18 08:05> Date of Encounter: 02/11/18 - Assessment and plan (1) COPD (chronic obstructive pulmonary disease) Current Visit: No Status: Chronic Qualifiers: COPD type: unspecified COPD Qualified Code(s): J44.9 - Chronic obstructive pulmonary disease, unspecified (2) Hypertension, essential Current Visit: No Status: Chronic (3) Diabetes mellitus type 2, noninsulin dependent Current Visit: No Status: Chronic (4) DVT prophylaxis Current Visit: No Status: Acute (5) Atrial fibrillation with RVR Current Visit: Yes Status: Acute (6) CHF (congestive heart failure) Current Visit: Yes Status: Acute Qualifiers: Heart failure type: diastolic Qualified Code(s): I50.31 - Acute diastolic ( congestive) heart failure - Time Spent With Patient Total time spent is greater than 50% in coordination of care (as documented) at patient's floor/unit and/or counseling patient: - Constitutional Vitals: Temp Pulse Resp BP Pulse Ox 97.8 F 114 12 130/87 97 02/12/18 07:18 02/12/18 07:18 02/12/18 07:18 02/12/18 07:18 02/12/18 07:18 Internal Medicine: Result - Labs CBC & Chem 7: 02/10/18 09:29 02/12/18 05:06 Labs: BMP 02/12/18 05:06 Sodium 138 Potassium 4.0 Chloride 94 L Carbon Dioxide 36 H BUN 8 Creatinine 0.66 Glucose 162 H Calcium 9.6 - ABG Interpretation ABG results: PT/INR, D-dimer PT 20.0 Seconds (9.4-12.1) H 02/12/18 05:06 - Attending Attestation I examined this patient and my medical decision-making was reviewed with the Resident Physician Dr. Calzada. I agree with the documented findings, disposition and treatment plan as described except to the extent set forth below. Mr. Trinidad is a 77 y/o F with known past medical history of PE, DVT, DM, COPD, GERD, HTN, HLD, CAD, hypothyroidism, sleep apnea, anxiety who presented to [facility] with complaints of shortness of breath and palpitations. Pt happened to be in Afib with RVR and acute CHF exacerbation. Pt was started on Cardizem gtt. Her HR in 90;s now Gen: a, A, O x 3 Chest: Diminished BS b/l, mild crackles, rales + Heart: s1S2+ Afib Ext: trace edema a/p 1. Acute on chronic hypoxic resp failure 2. Acute on chronic diastolic CHF exacerbation Reviewed 2D Echo showed preserved LVEF, indeterminate diastolic dysfunction cont IV Lasix 20mg BID strict I & O Card on board Scheduled for tress test today 3. Acute new onset Afib with RVR mostly triggered by CHF exacerbation cont IV Lasix will stay away from BB due to her COPD Cont PO Cardizem Off the Cardizem gtt on Coumadin for anti coag
[2018-02-11] MEDS: Primidone 50 MG TABLET PO SCH (20:22)
[2018-02-12] MEDS ORDERED: *HR* Metoprolol 5 MG/5 ML VIAL IVP ONE (00:29)
[2018-02-12] MEDS: *HR* HYDROcodone/Acet 7.5/325 mg TABLET PO PRN (05:42)
[2018-02-12 05:49] LABS: INR 1.8
[2018-02-12 05:59] LABS: BUN/Creatinine Ratio 12 (6-26); Blood Urea Nitrogen 8 mg/dL (8-23); Calcium 9.6 mg/dL (8.6-10.3); Carbon Dioxide 36 mEq/L (23-29); Chloride 94 mEq/L (98-107); Glucose 162 mg/dL (70-105); Osmolality,Calculated 288 (280-300); Sodium 138 mEq/L (136-145); eGFR For African Americans > 60 (> 60); eGFR For Non-African Americans > 60 (> 60)
[2018-02-12] MEDS: Ondansetron 4 MG/2 ML VIAL IVP PRN (06:01)
[2018-02-12] MEDS: Gabapentin 100 MG CAPSULE PO SCH ×3 (08:04→22:49)
[2018-02-12] MEDS: hydrOXYzine pamoate 25 MG CAPSULE PO SCH ×3 (08:04→22:49)
[2018-02-12] MEDS: Fenofibrate 54 MG TABLET PO SCH (08:04)
[2018-02-12] MEDS: Diltiazem CD (24hr) 180 MG CAPSULE PO SCH (08:04)
[2018-02-12] MEDS: Furosemide 20 MG/2 ML VIAL IVP SCH (08:04)
[2018-02-12] MEDS: Famotidine 20 MG TABLET PO SCH ×2 (08:04→22:49)
[2018-02-12] MEDS: Cholestyramine 4 GM POWD.PACK PO SCH ×2 (08:05→16:02)
[2018-02-12] MEDS: Insulin LISPRO 300 UNITS/3 ML VIAL SQ SCH ×4 (08:05→22:47)
[2018-02-12] MEDS: Budesonide/Formoterol 160/4.5 MDI IH SCH ×2 (08:06→20:36)
--- NOTE | 2018-02-12 09:45 | Cardiology Progress Note ---
Date of Encounter: 02/12/18 Time of Encounter: 08:15 Assessment and Plan (1) Atrial fibrillation with RVR Current Visit: Yes Status: Acute Per Cardiology: New onset a.fib. Telemetry shows average heart rate 111 the past 12 hours, currently A. fib 100s to 110s. On Cardizem CD 360 mg by mouth daily. Received IV Lopressor last night. Agree with initiation of metoprolol 25 mg by mouth twice a day. We will continue to titrate for rate control. Stress test results pending. 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 INR = 1.8 , target INR 2.0-3.0. (2) CAD (coronary artery disease) Current Visit: Yes Status: Chronic Per cardiology: Known CAD s/p LHC 10 years ago with mild CAD per patient report. Denies chest pain. Troponins negative x4. Echo: Impressions: LVEF 60%. Normal LV chamber size, wall thickness and function. Indeterminate diastolic function. Normal right ventricular structure and function. Mild mitral regurgitation. Mild tricuspid regurgitation. No pulmonary hypertension. Left Ventricular Wall Motion: Rest Echo Findings All wall segments showed normal motion. Qualifiers: Coronary Disease-Associated Artery/Lesion type: [place] artery [place] vs. transplanted heart: [place] heart Associated angina: without angina Qualified Code(s): I25.10 - Atherosclerotic heart disease of [place] coronary artery without angina pectoris Discussion w patient/family: The assessment and plan as outlined above was discussed with the patient who expressed understanding and agreement. All questions were answered. Thank you for involving us in the care of your patient. Please call with any questions. Subjective Principal diagnosis: Afib RVR Interval history: She denies any chest pain or palpitations. Reports short of breath has improved. Reports mild nausea. Objective Vital Signs, Last 4 Hours Temp Pulse Resp BP Pulse Ox 02/12/18 08:22 92 02/12/18 08:06 16 96 02/12/18 07:18 97.8 F 114 12 130/87 97 General: Conversant, No Apparent Distress HEENT: Atraumatic, Normocephaly, Mucus Membranes Moist Neck: No JVD, Normal carotid pulses Cardiac: Normal S1 and S2, No Murmur, Other (Irregularly irregular) Lungs: Normal Breath Sounds, No Wheeze, Rales, Rhonchi Neuro: Alert and responsive, No focal deficits noted Abdomen: Soft, Non-Tender Skin: No rashes noted on visualized skin Musculoskeletal: No Chest Wall Tenderness Extremities: No Clubbing, No Cyanosis, No Edema, Normal Pulses Results 02/10/18 09:29 02/12/18 05:06 Lab Results Laboratory Tests 02/12/18 05:06 INR 1.8 Active Medications Hydrocodone Bitart/Acetaminophen ([place] 7.5-325 Mg) 1 tab PO Q6HR PRN PRN Reason: Pain Stop: 08/10/18 16:11 Last Admin: 02/12/18 05:42 Dose: 1 tab Albuterol Sulfate (Albuterol Sulfate) 2.5 mg PO TID [facility] Stop: 08/10/18 21:01 Last Admin: 02/09/18 17:04 Dose: Not Given Atorvastatin Calcium (Lipitor) 10 mg PO HS [facility] Stop: 08/10/18 21:01 Last Admin: 02/11/18 20:22 Dose: 10 mg Budesonide/Formoterol Fumarate (Symbicort) 2 puff IH BIDR [facility] PRN Reason: Protocol Stop: 08/10/18 22:01 Last Admin: 02/12/18 08:06 Dose: 2 puff Cholestyramine Resin (Cholestyramine) 4 gm PO BIDAC [facility] Stop: 08/10/18 16:31 Last Admin: 02/12/18 08:05 Dose: Not Given Dextrose/Water (Dextrose 50% (Syg)) 25 ml IVP AD PRN PRN Reason: Hypoglycemia Stop: 08/10/18 23:05 Dicyclomine HCl (Bentyl) 10 mg PO QID PRN PRN Reason: CRAMPING Stop: 08/10/18 16:11 Diltiazem HCl (Cardizem Cd) 360 mg PO DAILY [facility] Stop: 08/13/18 09:01 Last Admin: 02/12/18 08:04 Dose: 360 mg Ergocalciferol (Drisdol (50,000 Unit)) 50,000 unit PO QWEEK [facility] Stop: 08/10/18 16:16 Last Admin: 02/08/18 18:25 Dose: Not Given Famotidine (Pepcid) 20 mg PO BID [facility] Stop: 08/10/18 21:01 Last Admin: 02/12/18 08:04 Dose: 20 mg Fenofibrate (Tricor) 54 mg PO DAILY [facility] PRN Reason: Protocol Stop: 08/11/18 09:01 Last Admin: 02/12/18 08:04 Dose: 54 mg Furosemide (Lasix) 40 mg PO DAILY [facility] Stop: 08/14/18 09:01 Gabapentin (Neurontin) 100 mg PO TID [facility] Stop: 08/10/18 21:01 Last Admin: 02/12/18 08:04 Dose: 100 mg Glucagon (Glucagen) 1 mg IM ONCE PRN PRN Reason: Hypoglycemia Stop: 08/10/18 23:05 Glucose (Gluctose) 15 gm PO ONCE PRN PRN Reason: Hypoglycemia Stop: 08/10/18 23:05 Glucose (Gluctose) 30 gm PO ONCE PRN PRN Reason: Hypoglycemia Stop: 08/10/18 23:05 Hydroxyzine Pamoate (Hydroxyzine Pamoate) 25 mg PO TID [facility] Stop: 08/10/18 21:01 Last Admin: 02/12/18 08:04 Dose: 25 mg Diltiazem HCl 50 mg/ Sodium (Chloride) 50 mls @ 5 mls/hr IVC .Q10H [facility]SHAL; 5 MG/HR PRN Reason: Protocol Stop: 08/10/18 11:16 Last Admin: 02/11/18 00:55 Dose: 5 mg/hr, 5 mls/hr Dextrose (Dextrose 5%) 1,000 mls @ 100 mls/hr IVC .Q10H PRN PRN Reason: HYPOGLYCEMIA Stop: 08/10/18 23:05 Insulin Human Lispro (Humalog) 0 units SQ HS [facility] PRN Reason: Protocol Stop: 08/11/18 21:01 Last Admin: 02/11/18 20:24 Dose: Not Given Insulin Human Lispro (Humalog) 0 units SQ TIDAC [facility] PRN Reason: Protocol Stop: 08/11/18 07:31 Last Admin: 02/12/18 08:05 Dose: Not Given Isosorbide Mononitrate (Imdur) 60 mg PO DAILY [facility] Stop: 08/11/18 09:01 Last Admin: 02/11/18 13:22 Dose: 60 mg Levalbuterol HCl (Xopenex) 1 puff IH [id number] PRN PRN Reason: Shortness Of Breath Stop: 08/12/18 16:01 Levothyroxine Sodium (Synthroid) 175 mcg PO 0630 [facility] Stop: 08/11/18 06:31 Last Admin: 02/12/18 05:42 Dose: 175 mcg Naloxone HCl (Narcan) 0.4 mg IVP Q2MIN PRN PRN Reason: SEE COMMENTS Stop: 08/11/18 08:11 Nitroglycerin (Nitroglycerin) 0.4 mg SL Q5MIN PRN PRN Reason: CHEST PAIN Stop: 08/10/18 16:11 Omeprazole (Prilosec) 20 mg PO DAILY [facility] Stop: 08/11/18 09:01 Last Admin: 02/12/18 08:04 Dose: 20 mg Ondansetron HCl (Zofran) 4 mg IVP Q6HR PRN; Protocol PRN Reason: Nausea Stop: 08/12/18 16:10 Last Admin: 02/12/18 06:01 Dose: 4 mg Potassium Chloride (Potassium Chloride) 20 meq PO BIDWM [facility] Stop: 08/10/18 17:01 Last Admin: 02/12/18 08:04 Dose: 20 meq Primidone (Mysoline) 50 mg PO HS [facility] Stop: 08/10/18 21:01 Last Admin: 02/11/18 20:22 Dose: 50 mg Sertraline HCl (Zoloft) 100 mg PO BID [facility] Stop: 08/10/18 21:01 Last Admin: 02/12/18 08:04 Dose: 100 mg Simethicone (Gas-X) 80 mg PO TID PRN PRN Reason: Dyspepsia Stop: 08/12/18 11:52 Warfarin Sodium (Coumadin Perpt) 1 each PO DAILY@1800 PRN PRN Reason: SEE COMMENTS Stop: 08/11/18 18:01 - Imaging and Cardiology Stress Test: pending Consult Discharge Plan - Plan Referrals: Jermain Mtz MD [Primary Care Provider] -
[2018-02-12] MEDS ORDERED: *HR* Metoprolol 5 MG/5 ML VIAL IVP STA (10:50)
[2018-02-12] MEDS: Furosemide 40 MG TABLET PO SCH (11:05)
--- NOTE | 2018-02-12 12:18 | Internal Med Progress Note ---
<Abdelrahman Calzada - Last Filed: 02/12/18 17:33> Date of Encounter: 02/12/18 Time of Encounter: 09:00 - Assessment and plan (1) Atrial fibrillation with RVR Current Visit: Yes Status: Acute Assessment and plan: - likely secondary to her diastolic CHF- BNP: 201, CTA showed pleural effusions and mid interstitial edema and pulmonary edema. she continues to be in Afib RVR. -Telemetry shows average heart rate 113 the past 12 hours. On Cardizem CD 360 mg by mouth daily. Patient received IV Lopressor last night. Metoprolol 25mg has been initiated for rare control and to prepare the patient for the stress test. - Cardiology is on board. Second half of the stress test is pending. Results awaited. - Continue to titrate for rate control. (2) COPD (chronic obstructive pulmonary disease) Current Visit: No Status: Chronic Assessment and plan: - patient has a Hx of COPD, is on 3L home O2. - currently she doesn't show nay evidence of SOB, her SPO2 > 88% - she continues to be on her home medications - we will continue to monitor her vitals for any potential COPD exacerbation Qualifiers: COPD type: unspecified COPD Qualified Code(s): J44.9 - Chronic obstructive pulmonary disease, unspecified (3) Hypertension, essential Current Visit: No Status: Chronic Assessment and plan: - patient has a PMH of HTN - currently her BP is improving (currentlySBP 123) , this could be secondary to her being on Cardizem 12.5 mg drip (4) Diabetes mellitus type 2, noninsulin dependent Current Visit: No Status: Chronic Assessment and plan: - patient has a Hx of DM2 - Her glucose has been in the range of 150-180s -We will continue home regimen and start the patient and insulin sliding scale with moderate coverage (5) DVT prophylaxis Current Visit: No Status: Acute Assessment and plan: She is on chronic anticoagulation with warfarin for history of DVT and PE INR therapeutic range (6) CHF (congestive heart failure) Current Visit: Yes Status: Acute Assessment and plan: -patient presented with JOHNSON and mild orthopnea, BNP: 201, - I/O = - 5115 mL, Cumulative Is/Os: -27759 mL - CTA: showed interstitial and pulmonary edema, with small b/l pleural effusions. Echo showed preserved EF (60%) - Patient currently doesn't appear to overly volume depleted,she denies dyspnea , orthopena , her physical examination looks unremarkable : we have transitioned her from 20mg IV to 40 mg PO furosemide - continue to monitor her Is/Os . Monitor sings of any hemodynamic instability Qualifiers: Heart failure type: diastolic Qualified Code(s): I50.30 - Unspecified diastolic (congestive) heart failure - Time Spent With Patient Total time spent is greater than 50% in coordination of care (as documented) at patient's floor/unit and/or counseling patient: - Subjective Interval history: she continues to be in Afib RVR with beats averaging around 13, She was given lopressor last night and was started on metoprolol 25mg for rate control. Patient is currently on 360mg Cardizem. Owing to her physical exam (non edematous state, no new orthopnea or dyspnea), she has been transitioned from IV Lasix to her PO lasix Her second part of the stress test is pending today. Cardiology is on board - Constitutional Vitals: Temp Pulse Resp BP Pulse Ox 97.8 F 113 18 123/103 98 02/12/18 11:13 02/12/18 11:13 02/12/18 11:13 02/12/18 11:13 02/12/18 11:13 General appearance: Present: A&O X 3, morbidly obese - Head Head exam: Present: atraumatic, normal inspection, normocephalic - Respiratory Additional comments: CTAB, no rales, ronchi or wheezing, no acute syndrome - Cardiovascular Additional comments: irregualr rhythm, no gallops, murmurs or rubs - GI/Abdominal Additional comments: soft, non-tender, normal bowel sounds - Extremities Exam Additional comments: warm , good turgor, full ROM Internal Medicine: Result - Labs CBC & Chem 7: 02/10/18 09:29 02/12/18 05:06 Labs: BMP 02/12/18 05:06 Sodium 138 Potassium 4.0 Chloride 94 L Carbon Dioxide 36 H BUN 8 Creatinine 0.66 Glucose 162 H Calcium 9.6 - ABG Interpretation ABG results: PT/INR, D-dimer PT 20.0 Seconds (9.4-12.1) H 02/12/18 05:06 Consult Discharge Plan - Plan Referrals: Jermain Mtz MD [Primary Care Provider] - <Dahlia Yepez - Last Filed: 02/13/18 07:32> Date of Encounter: 02/12/18 - Assessment and plan (1) COPD (chronic obstructive pulmonary disease) Current Visit: No Status: Chronic Qualifiers: COPD type: unspecified COPD Qualified Code(s): J44.9 - Chronic obstructive pulmonary disease, unspecified (2) Hypertension, essential Current Visit: No Status: Chronic (3) Diabetes mellitus type 2, noninsulin dependent Current Visit: No Status: Chronic (4) DVT prophylaxis Current Visit: No Status: Acute (5) Atrial fibrillation with RVR Current Visit: Yes Status: Acute (6) CHF (congestive heart failure) Current Visit: Yes Status: Acute Qualifiers: Heart failure type: diastolic Qualified Code(s): I50.30 - Unspecified diastolic (congestive) heart failure - Time Spent With Patient Total time spent is greater than 50% in coordination of care (as documented) at patient's floor/unit and/or counseling patient: - Constitutional Vitals: Temp Pulse Resp BP Pulse Ox 97.7 F 105 18 121/87 91 02/13/18 07:18 02/13/18 07:18 02/13/18 04:13 02/13/18 07:18 02/13/18 07:18 Internal Medicine: Result - Labs CBC & Chem 7: 02/13/18 04:06 02/13/18 04:06 Labs: Short CBC 02/13/18 Range/Units 04:06 WBC 9.7 (4.3-11.1) K/mcL Hgb 12.2 D (11.5-15.4) g/dL Hct 37.8 (35.3-44.9) % Plt Count 154 (140-400) K/mcL Neutrophils # 7.4 (1.6-8.9) K/mcL BMP 02/13/18 04:06 Sodium 136 Potassium 4.1 Chloride 92 L Carbon Dioxide 31 H BUN 12 Creatinine 0.62 Glucose 171 H Calcium 9.8 - ABG Interpretation ABG results: PT/INR, D-dimer PT 21.2 Seconds (9.4-12.1) H 02/13/18 04:06 - Attending Attestation I examined this patient and my medical decision-making was reviewed with the Resident Physician Dr. Calzada. I agree with the documented findings, disposition and treatment plan as described except to the extent set forth below. Mr. Trinidad is a 77 y/o F with known past medical history of PE, DVT, DM, COPD, GERD, HTN, HLD, CAD, hypothyroidism, sleep apnea, anxiety who presented to [facility] with complaints of shortness of breath and palpitations. Pt happened to be in Afib with RVR and acute CHF exacerbation. Pt is off the cardizem gtt, however her HR still in low 100's. She denied any CP. Gen: a, A, O x 3 Chest: Diminished BS b/l, mild crackles, rales + Heart: s1S2+ Afib Ext: trace edema a/p 1. Acute on chronic hypoxic resp failure 2. Acute on chronic diastolic CHF exacerbation Reviewed 2D Echo showed preserved LVEF, indeterminate diastolic dysfunction Switch to PO Lasix 20mg BID strict I & O Card on board will f/u on stress test results 3. Acute new onset Afib with RVR mostly triggered by CHF exacerbation Cont PO Cardizem Off the Cardizem gtt Added BB Metoprolol on Coumadin for anti coag
[2018-02-12] MEDS: Isosorbide MONOnitrate (24 HR) 60 MG TAB.ER.24H PO SCH (13:32)
[2018-02-12] MEDS ORDERED: *HR* Warfarin 2.5 MG TABLET PO ONE (18:00)
[2018-02-12] MEDS: Primidone 50 MG TABLET PO SCH (22:49)
[2018-02-13] MEDS ORDERED: Nystatin POWDER 30 GM BOTTLE TP SCH (01:15)
[2018-02-13] MEDS: Nystatin POWDER 30 GM BOTTLE TP SCH ×3 (01:45→21:16)
[2018-02-13] MEDS: *HR* HYDROcodone/Acet 7.5/325 mg TABLET PO PRN ×3 (03:38→21:17)
[2018-02-13 04:53] LABS: Basophils % 0.4 %; Eosinophils # 0.2 K/mcL (0.0-0.6); Eosinophils % 1.6 %; Hematocrit 37.8 % (35.3-44.9); Immature Granulocytes % 0.4 % (0-4); Lymphocytes # 1.3 K/mcL (0.6-4.6); Lymphocytes % 13.7 %; Mean Corpuscular HGB Conc 32.3 g/dL (31.6-35.5); Mean Corpuscular Hemoglobin 29.8 pg (28.0-33.3); Mean Corpuscular Volume 92.2 fL (83.0-100.0); Mean Platelet Volume 10.3 fL (9.4-12.4); Monocytes # 0.7 K/mcL (0.0-1.3); Neutrophils # 7.4 K/mcL (1.6-8.9); Platelet Count 154 K/mcL (140-400); Segmented Neutrophils % 76.9 %
[2018-02-13 04:59] LABS: Hemoglobin 12.2 g/dL (11.5-15.4)
[2018-02-13 05:03] LABS: INR 1.9; Prothrombin Time 21.2 Seconds (9.4-12.1)
[2018-02-13 05:14] LABS: BUN/Creatinine Ratio 19 (6-26); Blood Urea Nitrogen 12 mg/dL (8-23); Calcium 9.8 mg/dL (8.6-10.3); Carbon Dioxide 31 mEq/L (23-29); Chloride 92 mEq/L (98-107); Glucose 171 mg/dL (70-105); Osmolality,Calculated 286 (280-300); Potassium 4.1 mEq/L (3.5-5.1); Sodium 136 mEq/L (136-145); eGFR For African Americans > 60 (> 60); eGFR For Non-African Americans > 60 (> 60)
--- NOTE | 2018-02-13 08:57 | Internal Med Progress Note ---
<Abdelrahman Calzada - Last Filed: 02/13/18 14:44> Date of Encounter: 02/13/18 Time of Encounter: 10:00 - Assessment and plan (1) Atrial fibrillation with RVR Current Visit: Yes Status: Acute Assessment and plan: - likely secondary to her diastolic CHF- BNP: 201, CTA showed pleural effusions and mid interstitial edema and pulmonary edema. she continues to be in Afib RVR. HR averaging 113. - Her nuclear stress test was negative for ischemia or infarct - On Cardizem CD 360 mg by mouth daily. Metoprolol 25mg has been increased to 50 mg BID because of elevated heart rate ([id number]). . - Will likely discharge her if she is deemed hemodynamically stable . (2) COPD (chronic obstructive pulmonary disease) Current Visit: No Status: Chronic Assessment and plan: - patient has a Hx of COPD, is on 3L home O2. - currently she doesn't show any evidence of SOB, increased cough or change in the color of her sputum, her SPO2 > 88% - she continues to be on her home medications (Budesonide/Formotrel) - we will continue to monitor her vitals for any potential COPD exacerbation Qualifiers: COPD type: unspecified COPD Qualified Code(s): J44.9 - Chronic obstructive pulmonary disease, unspecified (3) Hypertension, essential Current Visit: No Status: Chronic Assessment and plan: - patient has a PMH of HTN - currently her SBP has been within 110-102s in the last 24 hrs - we will continue to monitor her BP (4) Diabetes mellitus type 2, noninsulin dependent Current Visit: No Status: Chronic Assessment and plan: - patient has a Hx of DM2 - Her glucose has been in the range of 150-180s -We will continue home regimen and start the patient and insulin sliding scale with moderate coverage (5) DVT prophylaxis Current Visit: No Status: Acute Assessment and plan: She is on chronic anticoagulation with warfarin for history of DVT and PE INR therapeutic range (1.9) (6) CHF (congestive heart failure) Current Visit: Yes Status: Acute Assessment and plan: -patient presented with JOHNSON and mild orthopnea, BNP: 201, - Net I/O = -70 mL, Cumulative Is/Os: -55209 mL, current weight loss of 2kg since yesterday - CTA: showed interstitial and pulmonary edema, with small b/l pleural effusions. Echo showed preserved EF (60%) - Patient currently doesn't appear to overly volume depleted,she denies dyspnea , orthopena , her physical examination looks unremarkable (no rales, JVD) :she continues to be on 40 mg PO furosemide - continue to monitor her Is/Os . Monitor sings of any hemodynamic instability Qualifiers: Heart failure type: diastolic Qualified Code(s): I50.30 - Unspecified diastolic (congestive) heart failure - Time Spent With Patient Total time spent is greater than 50% in coordination of care (as documented) at patient's floor/unit and/or counseling patient: - Subjective Interval history: -no acute events overnight. Patient endorses no SOB, dyspnea, orthopnea this morning. Her extremities do not look edematous. Her PO2 is 91% on room air. She continues to be tachycardiac with heart rate fluctuating between 100-140s ( - Constitutional Vitals: Temp Pulse Resp BP Pulse Ox 97.7 F 105 18 121/87 91 02/13/18 07:18 02/13/18 07:18 02/13/18 04:13 02/13/18 07:18 02/13/18 07:18 General appearance: Present: A&O X 3, morbidly obese - Head Head exam: Present: atraumatic, normal inspection, normocephalic - Cardiovascular Additional comments: irregular irregular, no S3 appreciated, no JVD - GI/Abdominal Additional comments: soft, non-tender, normal Bowel sounds - Extremities Exam Additional comments: no edema noticed, skin warm and with good turgor Internal Medicine: Result - Labs CBC & Chem 7: 02/13/18 04:06 02/13/18 04:06 Labs: Short CBC 02/13/18 Range/Units 04:06 WBC 9.7 (4.3-11.1) K/mcL Hgb 12.2 D (11.5-15.4) g/dL Hct 37.8 (35.3-44.9) % Plt Count 154 (140-400) K/mcL Neutrophils # 7.4 (1.6-8.9) K/mcL BMP 02/13/18 04:06 Sodium 136 Potassium 4.1 Chloride 92 L Carbon Dioxide 31 H BUN 12 Creatinine 0.62 Glucose 171 H Calcium 9.8 - ABG Interpretation ABG results: PT/INR, D-dimer PT 21.2 Seconds (9.4-12.1) H 02/13/18 04:06 Consult Discharge Plan - Plan Referrals: Jermain Mtz MD [Primary Care Provider] - <LuchoCruzjuveligia - Last Filed: 02/13/18 14:52> Date of Encounter: 02/13/18 - Assessment and plan (1) COPD (chronic obstructive pulmonary disease) Current Visit: No Status: Chronic Qualifiers: COPD type: unspecified COPD Qualified Code(s): J44.9 - Chronic obstructive pulmonary disease, unspecified (2) Hypertension, essential Current Visit: No Status: Chronic (3) Diabetes mellitus type 2, noninsulin dependent Current Visit: No Status: Chronic (4) DVT prophylaxis Current Visit: No Status: Acute (5) Atrial fibrillation with RVR Current Visit: Yes Status: Acute (6) CHF (congestive heart failure) Current Visit: Yes Status: Acute Qualifiers: Heart failure type: diastolic Qualified Code(s): I50.30 - Unspecified diastolic (congestive) heart failure - Time Spent With Patient Total time spent is greater than 50% in coordination of care (as documented) at patient's floor/unit and/or counseling patient: - Constitutional Vitals: Temp Pulse Resp BP Pulse Ox 98.0 F 102 18 114/82 93 02/13/18 11:24 02/13/18 11:24 02/13/18 04:13 02/13/18 11:24 02/13/18 11:24 Internal Medicine: Result - Labs CBC & Chem 7: 02/13/18 04:06 02/13/18 04:06 Labs: Short CBC 02/13/18 Range/Units 04:06 WBC 9.7 (4.3-11.1) K/mcL Hgb 12.2 D (11.5-15.4) g/dL Hct 37.8 (35.3-44.9) % Plt Count 154 (140-400) K/mcL Neutrophils # 7.4 (1.6-8.9) K/mcL BMP 02/13/18 04:06 Sodium 136 Potassium 4.1 Chloride 92 L Carbon Dioxide 31 H BUN 12 Creatinine 0.62 Glucose 171 H Calcium 9.8 - ABG Interpretation ABG results: PT/INR, D-dimer PT 21.2 Seconds (9.4-12.1) H 02/13/18 04:06 - Attending Attestation I examined this patient and my medical decision-making was reviewed with the Resident Physician Dr. Calzada. I agree with the documented findings, disposition and treatment plan as described except to the extent set forth below. Mr. Trinidad is a 77 y/o F with known past medical history of PE, DVT, DM, COPD, GERD, HTN, HLD, CAD, hypothyroidism, sleep apnea, anxiety who presented to [facility] with complaints of shortness of breath and palpitations. Pt happened to be in Afib with RVR and acute CHF exacerbation. Pt is off the cardizem gtt, however her HR still in low 100's. She denied any CP. Gen: a, A, O x 3 Chest: Diminished BS b/l, mild crackles, rales + Heart: s1S2+ Afib Ext: trace edema a/p 1. Acute on chronic hypoxic resp failure 2. Acute on chronic diastolic CHF exacerbation Reviewed 2D Echo showed preserved LVEF, indeterminate diastolic dysfunction Cont PO Lasix 20mg BID strict I & O Card on board stress test came back negative for ischemia 3. Acute new onset Afib with RVR mostly triggered by CHF exacerbation Cont PO Cardizem Off the Cardizem gtt inc Metoprolol to 50mg BID on Coumadin for anti coag
--- NOTE | 2018-02-13 09:31 | Cardiology Progress Note ---
Date of Encounter: 02/13/18 Time of Encounter: 08:25 Assessment and Plan (1) Atrial fibrillation with RVR Current Visit: Yes Status: Acute Per Cardiology: New onset a.fib. Telemetry shows average heart rate 111 the past 12 hours, currently A. fib 100s to 110s. On Cardizem CD 360 mg by mouth daily and Lopressor 25 mg by mouth twice a day. Heart rates noted at bedside to fluctuate 100s to 140s at times. Systolic blood pressures 110s to 130s. Stress test negative for ischemia. Will decrease dose of long-acting nitrate. We will titrate Lopressor to 50 mg by mouth twice a day. We will continue titration as blood pressure allows and for rate control. Discussed and reviewed with Dr. Smith. 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 INR = 1.9 , target INR 2.0-3.0. H&H stable. (2) CAD (coronary artery disease) Current Visit: Yes Status: Chronic Per cardiology: Known CAD s/p LHC 10 years ago with mild CAD per patient report. Denies chest pain. Troponins negative x4. Echo: Impressions: LVEF 60%. Normal LV chamber size, wall thickness and function. Indeterminate diastolic function. Normal right ventricular structure and function. Mild mitral regurgitation. Mild tricuspid regurgitation. No pulmonary hypertension. Left Ventricular Wall Motion: Rest Echo Findings All wall segments showed normal motion. Qualifiers: Coronary Disease-Associated Artery/Lesion type: [place] artery [place] vs. transplanted heart: [place] heart Associated angina: without angina Qualified Code(s): I25.10 - Atherosclerotic heart disease of [place] coronary artery without angina pectoris Discussion w patient/family: The assessment and plan as outlined above was discussed with the patient who expressed understanding and agreement. All questions were answered. Thank you for involving us in the care of your patient. Please call with any questions. Subjective Principal diagnosis: Afib RVR Interval history: Patient denies any chest pain. Reports occasional fluttering sensations. Does report fatigue. Reports overall improvement in her shortness of breath to about baseline. Objective Vital Signs, Last 4 Hours Temp Pulse BP Pulse Ox 02/13/18 07:18 97.7 F 105 121/87 91 General: Conversant, No Apparent Distress HEENT: Atraumatic, Normocephaly, Mucus Membranes Moist Neck: No JVD, Normal carotid pulses Cardiac: Normal S1 and S2, No Murmur, Other (Irregularly irregular) Lungs: Normal Breath Sounds, No Wheeze, Rales, Rhonchi, Other (Slightly diminished throughout) Neuro: Alert and responsive, No focal deficits noted Abdomen: Soft, Non-Tender Skin: No rashes noted on visualized skin Musculoskeletal: No Chest Wall Tenderness Extremities: No Clubbing, No Cyanosis, No Edema, Normal Pulses Results 02/13/18 04:06 02/13/18 04:06 Lab Results Laboratory Tests 02/09/18 02/13/18 02/13/18 08:25 04:06 04:06 Hgb 12.2 D Hct 37.8 INR 1.9 Creatinine Est GFR (Non-Af Amer) Magnesium 1.8 02/13/18 04:06 Hgb Hct INR Creatinine 0.62 Est GFR (Non-Af Amer) > 60 Magnesium Laboratory Tests 02/08/18 10:23 TSH 3.015 Active Medications Hydrocodone Bitart/Acetaminophen ([place] 7.5-325 Mg) 1 tab PO Q6HR PRN PRN Reason: Pain Stop: 08/10/18 16:11 Last Admin: 02/13/18 03:38 Dose: 1 tab Albuterol Sulfate (Albuterol Sulfate) 2.5 mg PO TID [facility] Stop: 08/10/18 21:01 Last Admin: 02/09/18 17:04 Dose: Not Given Atorvastatin Calcium (Lipitor) 10 mg PO HS [facility] Stop: 08/10/18 21:01 Last Admin: 02/12/18 22:49 Dose: 10 mg Budesonide/Formoterol Fumarate (Symbicort) 2 puff IH BIDR HARSHAL PRN Reason: Protocol Stop: 08/10/18 22:01 Last Admin: 02/12/18 20:36 Dose: 2 puff Cholestyramine Resin (Cholestyramine) 4 gm PO BIDAC HARSHAL Stop: 08/10/18 16:31 Last Admin: 02/12/18 16:02 Dose: 4 gm Dextrose/Water (Dextrose 50% (Syg)) 25 ml IVP AD PRN PRN Reason: Hypoglycemia Stop: 08/10/18 23:05 Dicyclomine HCl (Bentyl) 10 mg PO QID PRN PRN Reason: CRAMPING Stop: 08/10/18 16:11 Diltiazem HCl (Cardizem Cd) 360 mg PO DAILY [facility] Stop: 08/13/18 09:01 Last Admin: 02/12/18 08:04 Dose: 360 mg Ergocalciferol (Drisdol (50,000 Unit)) 50,000 unit PO QWEEK [facility] Stop: 08/10/18 16:16 Last Admin: 02/08/18 18:25 Dose: Not Given Famotidine (Pepcid) 20 mg PO BID [facility] Stop: 08/10/18 21:01 Last Admin: 02/12/18 22:49 Dose: 20 mg Fenofibrate (Tricor) 54 mg PO DAILY [facility] PRN Reason: Protocol Stop: 08/11/18 09:01 Last Admin: 02/12/18 08:04 Dose: 54 mg Furosemide (Lasix) 40 mg PO DAILY [facility] Stop: 08/14/18 09:01 Last Admin: 02/12/18 11:05 Dose: 40 mg Gabapentin (Neurontin) 100 mg PO TID [facility] Stop: 08/10/18 21:01 Last Admin: 02/12/18 22:49 Dose: 100 mg Glucagon (Glucagen) 1 mg IM ONCE PRN PRN Reason: Hypoglycemia Stop: 08/10/18 23:05 Glucose (Gluctose) 15 gm PO ONCE PRN PRN Reason: Hypoglycemia Stop: 08/10/18 23:05 Glucose (Gluctose) 30 gm PO ONCE PRN PRN Reason: Hypoglycemia Stop: 08/10/18 23:05 Hydroxyzine Pamoate (Hydroxyzine Pamoate) 25 mg PO TID [facility] Stop: 08/10/18 21:01 Last Admin: 02/12/18 22:49 Dose: 25 mg Dextrose (Dextrose 5%) 1,000 mls @ 100 mls/hr IVC .Q10H PRN PRN Reason: HYPOGLYCEMIA Stop: 08/10/18 23:05 Insulin Human Lispro (Humalog) 0 units SQ HS [facility] PRN Reason: Protocol Stop: 08/11/18 21:01 Last Admin: 02/12/18 22:47 Dose: Not Given Insulin Human Lispro (Humalog) 0 units SQ TIDAC [facility] PRN Reason: Protocol Stop: 08/11/18 07:31 Last Admin: 02/12/18 19:33 Dose: Not Given Isosorbide Mononitrate (Imdur) 30 mg PO DAILY [facility] Stop: 08/16/18 09:01 Levalbuterol HCl (Xopenex) 1 puff IH [id number] PRN PRN Reason: Shortness Of Breath Stop: 08/12/18 16:01 Levothyroxine Sodium (Synthroid) 175 mcg PO 0630 [facility] Stop: 08/11/18 06:31 Last Admin: 02/13/18 05:41 Dose: 175 mcg Metoprolol Tartrate (Lopressor) 25 mg PO ONCE ONE Stop: 02/13/18 09:29 Metoprolol Tartrate (Lopressor) 50 mg PO BID [facility] Stop: 08/15/18 21:01 Naloxone HCl (Narcan) 0.4 mg IVP Q2MIN PRN PRN Reason: SEE COMMENTS Stop: 08/11/18 08:11 Nitroglycerin (Nitroglycerin) 0.4 mg SL Q5MIN PRN PRN Reason: CHEST PAIN Stop: 08/10/18 16:11 Nystatin (Nystop) 1 appl TP BID [facility] Stop: 08/15/18 01:16 Last Admin: 02/13/18 01:45 Dose: 1 appl Omeprazole (Prilosec) 20 mg PO DAILY [facility] Stop: 08/11/18 09:01 Last Admin: 02/12/18 08:04 Dose: 20 mg Ondansetron HCl (Zofran) 4 mg IVP Q6HR PRN; Protocol PRN Reason: Nausea Stop: 08/12/18 16:10 Last Admin: 02/12/18 06:01 Dose: 4 mg Potassium Chloride (Potassium Chloride) 20 meq PO BIDWM [facility]SHAL Stop: 08/10/18 17:01 Last Admin: 02/12/18 16:01 Dose: 20 meq Primidone (Mysoline) 50 mg PO HS [facility] Stop: 08/10/18 21:01 Last Admin: 02/12/18 22:49 Dose: 50 mg Sertraline HCl (Zoloft) 100 mg PO BID [facility] Stop: 08/10/18 21:01 Last Admin: 02/12/18 22:49 Dose: 100 mg Simethicone (Gas-X) 80 mg PO TID PRN PRN Reason: Dyspepsia Stop: 08/12/18 11:52 Warfarin Sodium (Coumadin Perpt) 1 each PO DAILY@1800 PRN PRN Reason: SEE COMMENTS Stop: 08/11/18 18:01 Warfarin Sodium (Coumadin) 2.5 mg PO 1800 ONE Stop: 02/13/18 18:01 - Imaging and Cardiology Stress Test: report reviewed Consult Discharge Plan - Plan Referrals: Jermain Mtz MD [Primary Care Provider] -
[2018-02-13] MEDS: Albuterol Sulfate 2 MG/5 ML UDC PO SCH (09:43)
[2018-02-13] MEDS: hydrOXYzine pamoate 25 MG CAPSULE PO SCH ×3 (09:47→21:17)
[2018-02-13] MEDS: Gabapentin 100 MG CAPSULE PO SCH ×3 (09:47→21:17)
[2018-02-13] MEDS: Famotidine 20 MG TABLET PO SCH ×2 (09:47→21:17)
[2018-02-13] MEDS: Fenofibrate 54 MG TABLET PO SCH (09:48)
[2018-02-13] MEDS: Furosemide 40 MG TABLET PO SCH (09:48)
[2018-02-13] MEDS: Cholestyramine 4 GM POWD.PACK PO SCH ×2 (09:48→17:36)
[2018-02-13] MEDS: Diltiazem CD (24hr) 180 MG CAPSULE PO SCH (09:48)
[2018-02-13] MEDS: Ondansetron 4 MG/2 ML VIAL IVP PRN (09:53)
[2018-02-13] MEDS: Budesonide/Formoterol 160/4.5 MDI IH SCH ×2 (10:26→20:14)
[2018-02-13] MEDS: Insulin LISPRO 300 UNITS/3 ML VIAL SQ SCH ×4 (10:58→21:14)
[2018-02-13] MEDS ORDERED: *HR* Warfarin 2.5 MG TABLET PO ONE (18:00)
[2018-02-13] MEDS ORDERED: *HR* Warfarin 5 MG TABLET PO SCH (18:00)
[2018-02-13] MEDS: Primidone 50 MG TABLET PO SCH (21:17)
[2018-02-14 05:16] LABS: Basophils % 0.2 %; Eosinophils # 0.2 K/mcL (0.0-0.6); Hematocrit 41.3 % (35.3-44.9); Hemoglobin 13.3 g/dL (11.5-15.4); Immature Granulocytes % 0.6 % (0-4); Lymphocytes # 1.5 K/mcL (0.6-4.6); Lymphocytes % 16.1 %; Mean Corpuscular HGB Conc 32.2 g/dL (31.6-35.5); Mean Corpuscular Hemoglobin 29.8 pg (28.0-33.3); Mean Corpuscular Volume 92.6 fL (83.0-100.0); Mean Platelet Volume 10.1 fL (9.4-12.4); Monocytes # 0.6 K/mcL (0.0-1.3); Monocytes % 6.8 %; Neutrophils # 6.7 K/mcL (1.6-8.9); Platelet Count 181 K/mcL (140-400); Red Blood Count 4.46 M/mcL (3.82-4.97); Red Cell Distribution Width 15.1 % (11.5-14.5); Segmented Neutrophils % 74.3 %
[2018-02-14 05:24] LABS: INR 1.6; Prothrombin Time 18.2 Seconds (9.4-12.1)
[2018-02-14 05:38] LABS: BUN/Creatinine Ratio 29 (6-26); Blood Urea Nitrogen 22 mg/dL (8-23); Calcium 9.8 mg/dL (8.6-10.3); Carbon Dioxide 31 mEq/L (23-29); Chloride 94 mEq/L (98-107); Glucose 196 mg/dL (70-105); Osmolality,Calculated 289 (280-300); Sodium 135 mEq/L (136-145); eGFR For African Americans > 60 (> 60); eGFR For Non-African Americans > 60 (> 60)
[2018-02-14] MEDS: Famotidine 20 MG TABLET PO SCH ×2 (08:04→21:23)
[2018-02-14] MEDS: Ondansetron 4 MG/2 ML VIAL IVP PRN (08:04)
[2018-02-14] MEDS: hydrOXYzine pamoate 25 MG CAPSULE PO SCH ×3 (08:04→21:24)
[2018-02-14] MEDS: Cholestyramine 4 GM POWD.PACK PO SCH ×2 (08:04→17:03)
[2018-02-14] MEDS: Isosorbide MONOnitrate (24 HR) 30 MG TAB.ER.24H PO SCH (08:04)
[2018-02-14] MEDS: Gabapentin 100 MG CAPSULE PO SCH ×3 (08:04→21:24)
[2018-02-14] MEDS: Furosemide 40 MG TABLET PO SCH (08:05)
[2018-02-14] MEDS: Insulin LISPRO 300 UNITS/3 ML VIAL SQ SCH ×4 (08:05→22:34)
[2018-02-14] MEDS: Diltiazem CD (24hr) 180 MG CAPSULE PO SCH (08:05)
[2018-02-14] MEDS: Fenofibrate 54 MG TABLET PO SCH (08:05)
[2018-02-14] MEDS: Budesonide/Formoterol 160/4.5 MDI IH SCH ×2 (08:12→20:07)
--- NOTE | 2018-02-14 08:48 | Discharge Summary ---
Orders not resulted at time of discharge: Pending orders 02/11/18 09:30 NM tere perf SPECT multi [NM] Routine Date of Encounter: 02/14/18 Time of Encounter: 08:50 - Discharge Diagnosis (1) Atrial fibrillation with RVR Status: Acute (2) CHF (congestive heart failure) Status: Acute Qualifiers: Heart failure type: diastolic Qualified Code(s): I50.30 - Unspecified diastolic (congestive) heart failure (3) COPD (chronic obstructive pulmonary disease) Status: Chronic Qualifiers: COPD type: unspecified COPD Qualified Code(s): J44.9 - Chronic obstructive pulmonary disease, unspecified (4) Hypertension, essential Status: Chronic (5) Diabetes mellitus type 2, noninsulin dependent Status: Chronic (6) DVT prophylaxis Status: Acute Hospital course: Ms. Trinidad is a 77 year old female - Time Spent with Patient Total time spent providing and/or coordinating discharge services: - Discharge Medications Home Medications: Albuterol Sulfate 2.5 mg PO TID 09/05/15 [History] Albuterol Sulfate [Albuterol Inhaler] 2 puff IH Q4H PRN 09/05/15 [History] Amlodipine Besylate 2.5 mg PO DAILY 09/05/15 [History] Atorvastatin [Lipitor] 10 mg PO HS 09/05/15 [History] Budesonide/Formoterol 160/4.5 [Symbicort 160/4.5] 2 puff IH BIDR 09/05/15 [ History] Ergocalciferol (VITAMIN D2) [Vitamin D2] 50,000 unit PO QWEEK 09/05/15 [History] Fenofibrate [Tricor] 54 mg PO DAILY 09/05/15 [History] Gabapentin [Neurontin] 100 mg PO TID 09/05/15 [History] Hydrocodone/Acetaminophen [[place] 7.5-325 Tablet] 1 tab PO Q6HR PRN 09/05/15 [ History] Isosorbide MONOnitrate [Isosorbide Mononitrate ER] 60 mg PO DAILY 09/05/15 [ History] Levothyroxine Sodium [Tirosint] 175 mcg PO DAILY 09/05/15 [History] Metoprolol [Lopressor] 50 mg PO BID 09/05/15 [History] Nitroglycerin [Nitrostat] 0.4 mg SL Q5-10MIN PRN 09/05/15 [History] Pantoprazole Sodium [Protonix] 40 mg PO DAILY 09/05/15 [History] Potassium Chloride [K-Tab ER] 20 meq PO BID 09/05/15 [History] Primidone [Mysoline] 50 mg PO HS 09/05/15 [History] Ranitidine HCl [Zantac] 150 mg PO BID 09/05/15 [History] Sertraline HCl [Zoloft] 100 mg PO BID 09/05/15 [History] Warfarin [Coumadin] [address] 09/05/15 [History] glipiZIDE [Glucotrol] 2.5 mg PO DAILY 09/05/15 [History] hydrOXYzine HCl [Hydroxyzine HCl] 25 mg PO TID 09/05/15 [History] Dicyclomine [Bentyl] 10 mg PO QID PRN 08/07/16 [History] Oxygen 2 l .ROUTE AD 08/07/16 [History] Warfarin [Coumadin] 2.5 mg PO [id number] 08/07/16 [History] Furosemide [Lasix] 40 mg PO DAILY #30 tablet 08/09/16 [Rx] Cholestyramine 4 gm PO BIDAC 02/08/18 [History] Allergies/Adverse Reactions: 3 Allergy/AdvReac Type Severity Reaction Status Date / Time aspirin AdvReac Anaphylaxis Verified 09/04/15 20:11 metoclopramide [From Reglan] AdvReac See Verified 09/04/15 20:11 Comments prednisone AdvReac See Verified 09/04/15 20:11 Comments Date of admission: 02/09/18 13:36 Primary care physician: Jermain Mtz MD Consults: 02/11/18 13:51 Consult to Physical Therapy [CONS] Routine Comment: Evaluate, develop and implement POC Reason for Consult: discharge planning, poss rehab placement Does patient have active BEDREST order?: No Is patient medically & hemodynamically stable?: Yes 02/11/18 13:52 Consult to Occupational Therapy [CONS] Routine Comment: Evaluate, develop and implement POC Reason for Consult: discharge planning, possible rehab need Does patient have active BEDREST order?: No Is patient medically & hemodynamically stable?: Yes - Constitutional Vitals: Temp Pulse Resp BP Pulse Ox 97.7 F 98 18 133/95 96 02/14/18 07:16 02/14/18 07:16 02/14/18 08:13 02/14/18 07:16 02/14/18 08:13 General appearance: Present: A&O X 3, morbidly obese - Patient Status Condition: Good - Discharge Instructions Follow Up With: Jermain Mtz MD [Primary Care Provider] -
--- NOTE | 2018-02-14 09:02 | Internal Med Progress Note ---
<Abdelrahman Calzada - Last Filed: 02/14/18 15:43> Date of Encounter: 02/14/18 Time of Encounter: 09:02 - Assessment and plan (1) Atrial fibrillation with RVR Current Visit: Yes Status: Acute Assessment and plan: - likely secondary to her diastolic CHF- BNP: 201, CTA showed pleural effusions and mid interstitial edema and pulmonary edema. she continues to be in Afib RVR. HR averaging 110-120s. - Her nuclear stress test was negative for ischemia or infarct - On Cardizem CD 360 mg by mouth daily. Metoprolol 50mg has been increased to 75 mg BID because of elevated heart rate ([id number]). . - If her heart rate is not well controlled we could go up on her metoprolol dose (upto 200mg) . . Consider adding Amiodarone if high dose metoprolol doesn't help (2) COPD (chronic obstructive pulmonary disease) Current Visit: No Status: Chronic Assessment and plan: - patient has a Hx of COPD, is on 3L home O2. - currently she doesn't show any evidence of SOB, increased cough or change in the color of her sputum, her SPO2 > 88% - she continues to be on her home medications (Budesonide/Formotrel) - we will continue to monitor her vitals for any potential COPD exacerbation Qualifiers: COPD type: unspecified COPD Qualified Code(s): J44.9 - Chronic obstructive pulmonary disease, unspecified (3) Hypertension, essential Current Visit: No Status: Chronic Assessment and plan: - patient has a PMH of HTN - currently her SBP has been within 110-130s in the last 24 hrs - we will continue to monitor her BP (4) Diabetes mellitus type 2, noninsulin dependent Current Visit: No Status: Chronic Assessment and plan: - patient has a Hx of DM2 -Patient is currently on insulin sliding scale with moderate coverage (5) DVT prophylaxis Current Visit: No Status: Acute Assessment and plan: She is on chronic anticoagulation with warfarin for history of DVT and PE INR therapeutic range (1.6) (6) CHF (congestive heart failure) Current Visit: Yes Status: Acute Assessment and plan: -patient presented with JOHNSON and mild orthopnea, BNP: 201, - CTA: showed interstitial and pulmonary edema, with small b/l pleural effusions. Echo showed preserved EF (60%) - Net I/O = -100 mL, Cumulative Is/Os: -82616 mL, current weight loss of 1.5kg since yesterday - Patient currently doesn't appear to overly volume depleted,she denies dyspnea , orthopena , her physical examination looks unremarkable (no rales, JVD) :she continues to be on 40 mg PO furosemide - continue to monitor her Is/Os . Monitor sings of any hemodynamic instability Qualifiers: Heart failure type: diastolic Qualified Code(s): I50.30 - Unspecified diastolic (congestive) heart failure - Time Spent With Patient Total time spent is greater than 50% in coordination of care (as documented) at patient's floor/unit and/or counseling patient: - Subjective Interval history: -no acute events overnight. Patient endorses no SOB, dyspnea, orthopnea this morning. Her extremities do not look edematous. She continues to be tachycardic with heart rate fluctuating between 100-120s . We have increased her metoprolol from 50 mg to 75 mg BID. we are going to continue to monitor her signs of hemodynamic instability ( - Constitutional Vitals: Temp Pulse Resp BP Pulse Ox 97.7 F 98 18 133/95 96 02/14/18 07:16 02/14/18 07:16 02/14/18 08:13 02/14/18 07:16 02/14/18 08:13 General appearance: Present: A&O X 3, morbidly obese - Respiratory Additional comments: CTAB, no rales, wheezing or ronchi - Cardiovascular Additional comments: irregular heart rate, no JVD , no S3 appreciated, tachycardic (averaging 110 bpm) - GI/Abdominal Additional comments: soft, non-tender, not distended , no organomegaly - Extremities Exam Additional comments: no pedal edema noticed, ROM appropriate for her age, pulses symmetrical bilaterally Internal Medicine: Result - Labs CBC & Chem 7: 02/14/18 04:43 02/14/18 04:43 Labs: Short CBC 02/14/18 Range/Units 04:43 WBC 9.0 (4.3-11.1) K/mcL Hgb 13.3 (11.5-15.4) g/dL Hct 41.3 (35.3-44.9) % Plt Count 181 (140-400) K/mcL Neutrophils # 6.7 (1.6-8.9) K/mcL BMP 02/14/18 04:43 Sodium 135 L Potassium 4.0 Chloride 94 L Carbon Dioxide 31 H BUN 22 Creatinine 0.77 Glucose 196 H Calcium 9.8 - ABG Interpretation ABG results: PT/INR, D-dimer PT 18.2 Seconds (9.4-12.1) H 02/14/18 04:43 Consult Discharge Plan - Plan Referrals: Jermain Mtz MD [Primary Care Provider] - <Dahlia Yepez - Last Filed: 02/14/18 17:37> Date of Encounter: 02/14/18 - Assessment and plan (1) COPD (chronic obstructive pulmonary disease) Current Visit: No Status: Chronic Qualifiers: COPD type: unspecified COPD Qualified Code(s): J44.9 - Chronic obstructive pulmonary disease, unspecified (2) Hypertension, essential Current Visit: No Status: Chronic (3) Diabetes mellitus type 2, noninsulin dependent Current Visit: No Status: Chronic (4) DVT prophylaxis Current Visit: No Status: Acute (5) Atrial fibrillation with RVR Current Visit: Yes Status: Acute (6) CHF (congestive heart failure) Current Visit: Yes Status: Acute Qualifiers: Heart failure type: diastolic Qualified Code(s): I50.30 - Unspecified diastolic (congestive) heart failure - Time Spent With Patient Total time spent is greater than 50% in coordination of care (as documented) at patient's floor/unit and/or counseling patient: - Constitutional Vitals: Temp Pulse Resp BP Pulse Ox 98.2 F 100 18 135/97 95 02/14/18 15:57 02/14/18 15:57 02/14/18 15:57 02/14/18 15:57 02/14/18 15:57 Internal Medicine: Result - Labs CBC & Chem 7: 02/14/18 04:43 02/14/18 04:43 Labs: Short CBC 02/14/18 Range/Units 04:43 WBC 9.0 (4.3-11.1) K/mcL Hgb 13.3 (11.5-15.4) g/dL Hct 41.3 (35.3-44.9) % Plt Count 181 (140-400) K/mcL Neutrophils # 6.7 (1.6-8.9) K/mcL BMP 02/14/18 04:43 Sodium 135 L Potassium 4.0 Chloride 94 L Carbon Dioxide 31 H BUN 22 Creatinine 0.77 Glucose 196 H Calcium 9.8 - ABG Interpretation ABG results: PT/INR, D-dimer PT 18.2 Seconds (9.4-12.1) H 02/14/18 04:43 - Attending Attestation I examined this patient and my medical decision-making was reviewed with the Resident Physician Dr. Calzada. I agree with the documented findings, disposition and treatment plan as described except to the extent set forth below. Mr. Trinidad is a 77 y/o F with known past medical history of PE, DVT, DM, COPD, GERD, HTN, HLD, CAD, hypothyroidism, sleep apnea, anxiety who presented to [facility] with complaints of shortness of breath and palpitations. Pt happened to be in Afib with RVR and acute CHF exacerbation. Pt is off the cardizem gtt, however her HR still in low 100's. She denied any CP. Gen: a, A, O x 3 Chest: Diminished BS b/l, mild crackles, rales + Heart: s1S2+ Afib Ext: trace edema a/p 1. Acute on chronic hypoxic resp failure 2. Acute on chronic diastolic CHF exacerbation Reviewed 2D Echo showed preserved LVEF, indeterminate diastolic dysfunction Cont PO Lasix 20mg BID strict I & O Card on board stress test came back negative for ischemia 3. Acute new onset Afib with RVR mostly triggered by CHF exacerbation Cont PO Cardizem Off the Cardizem gtt inc Metoprolol to 75 mg BID on Coumadin for anti coag
[2018-02-14] MEDS: Nystatin POWDER 30 GM BOTTLE TP SCH ×2 (09:36→22:43)
--- NOTE | 2018-02-14 09:42 | Cardiology Progress Note ---
Date of Encounter: 02/14/18 Time of Encounter: 09:00 Assessment and Plan (1) Atrial fibrillation with RVR Current Visit: Yes Status: Acute Per Cardiology: -New onset a.fib. Telemetry shows average heart rate 108 the past 12 hours. -On Cardizem CD 360 mg by mouth daily and Lopressor 50 mg by mouth twice a day. -Heart rates noted at bedside to fluctuate 100s to 120s at times. -Stress test negative for ischemia. 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 INR = 1.6, target INR 2.0-3.0. H&H stable. -Lopressor increased to 75mg BID per primary service, agree with increase. -Will continue to monitor. (2) CAD (coronary artery disease) Current Visit: Yes Status: Chronic Per cardiology: -Known CAD s/p [facility] 10 years ago with mild CAD per patient report. Denies chest pain. Troponins negative x4. Echo: -Echo with LVEF preserved, no segmental wall motion abnormalities noted. -Stress negative for ischemia. Qualifiers: Coronary Disease-Associated Artery/Lesion type: [place] artery [place] vs. transplanted heart: [place] heart Associated angina: without angina Qualified Code(s): I25.10 - Atherosclerotic heart disease of [place] coronary artery without angina pectoris Discussion w patient/family: The assessment and plan as outlined above was discussed with the patient who expressed understanding and agreement. All questions were answered. Thank you for involving us in the care of your patient. Please call with any questions. Discussed and reviewed with . Subjective Principal diagnosis: Afib RVR Interval history: Patient denies shortness of breath this morning. States breathing is at baseline. Denies palpitations, fluttering. Objective Vital Signs, Last 4 Hours Temp Pulse Resp BP Pulse Ox 02/14/18 08:13 18 96 02/14/18 07:16 97.7 F 98 18 133/95 97 General: Conversant, No Apparent Distress HEENT: Atraumatic, Normocephaly, Mucus Membranes Moist Neck: No JVD, Normal carotid pulses Cardiac: Normal S1 and S2, No Murmur, Other (Irregularly irregular ) Lungs: Normal Breath Sounds, No Wheeze, Rales, Rhonchi Neuro: Alert and responsive, No focal deficits noted Abdomen: Soft, Non-Tender Skin: No rashes noted on visualized skin Musculoskeletal: No Chest Wall Tenderness Extremities: No Clubbing, No Cyanosis, No Edema, Normal Pulses Results 02/14/18 04:43 02/14/18 04:43 Lab Results Active Medications Hydrocodone Bitart/Acetaminophen ([place] 7.5-325 Mg) 1 tab PO Q6HR PRN PRN Reason: Pain Stop: 08/10/18 16:11 Last Admin: 02/13/18 21:17 Dose: 1 tab Albuterol Sulfate (Albuterol Sulfate) 2.5 mg PO TID [facility] Stop: 08/10/18 21:01 Last Admin: 02/13/18 09:43 Dose: 2.5 mg Atorvastatin Calcium (Lipitor) 10 mg PO HS [facility] Stop: 08/10/18 21:01 Last Admin: 02/13/18 21:17 Dose: 10 mg Budesonide/Formoterol Fumarate (Symbicort) 2 puff IH BIDR [facility] PRN Reason: Protocol Stop: 08/10/18 22:01 Last Admin: 02/14/18 08:12 Dose: 2 puff Cholestyramine Resin (Cholestyramine) 4 gm PO BIDAC [facility] Stop: 08/10/18 16:31 Last Admin: 02/14/18 08:04 Dose: 4 gm Dextrose/Water (Dextrose 50% (Syg)) 25 ml IVP AD PRN PRN Reason: Hypoglycemia Stop: 08/10/18 23:05 Dicyclomine HCl (Bentyl) 10 mg PO QID PRN PRN Reason: CRAMPING Stop: 08/10/18 16:11 Diltiazem HCl (Cardizem Cd) 360 mg PO DAILY [facility] Stop: 08/13/18 09:01 Last Admin: 02/14/18 08:05 Dose: 360 mg Ergocalciferol (Drisdol (50,000 Unit)) 50,000 unit PO QWEEK [facility] Stop: 08/10/18 16:16 Last Admin: 02/08/18 18:25 Dose: Not Given Famotidine (Pepcid) 20 mg PO BID [facility] Stop: 08/10/18 21:01 Last Admin: 02/14/18 08:04 Dose: 20 mg Fenofibrate (Tricor) 54 mg PO DAILY [facility] PRN Reason: Protocol Stop: 08/11/18 09:01 Last Admin: 02/14/18 08:05 Dose: 54 mg Furosemide (Lasix) 40 mg PO DAILY [facility] Stop: 08/14/18 09:01 Last Admin: 02/14/18 08:05 Dose: 40 mg Gabapentin (Neurontin) 100 mg PO TID [facility] Stop: 08/10/18 21:01 Last Admin: 02/14/18 08:04 Dose: 100 mg Glucagon (Glucagen) 1 mg IM ONCE PRN PRN Reason: Hypoglycemia Stop: 08/10/18 23:05 Glucose (Gluctose) 15 gm PO ONCE PRN PRN Reason: Hypoglycemia Stop: 08/10/18 23:05 Glucose (Gluctose) 30 gm PO ONCE PRN PRN Reason: Hypoglycemia Stop: 08/10/18 23:05 Hydroxyzine Pamoate (Hydroxyzine Pamoate) 25 mg PO TID [facility] Stop: 08/10/18 21:01 Last Admin: 02/14/18 08:04 Dose: 25 mg Dextrose (Dextrose 5%) 1,000 mls @ 100 mls/hr IVC .Q10H PRN PRN Reason: HYPOGLYCEMIA Stop: 08/10/18 23:05 Insulin Human Lispro (Humalog) 0 units SQ [facility] PRN Reason: Protocol Stop: 08/11/18 21:01 Last Admin: 02/13/18 21:14 Dose: Not Given Insulin Human Lispro (Humalog) 0 units SQ TIDAC [facility] PRN Reason: Protocol Stop: 08/11/18 07:31 Last Admin: 02/14/18 08:05 Dose: 4 units Isosorbide Mononitrate (Imdur) 30 mg PO DAILY [facility] Stop: 08/16/18 09:01 Last Admin: 02/14/18 08:04 Dose: 30 mg Levalbuterol HCl (Xopenex) 1 puff IH [id number] PRN PRN Reason: Shortness Of Breath Stop: 08/12/18 16:01 Levothyroxine Sodium (Synthroid) 175 mcg PO 0630 [facility] Stop: 08/11/18 06:31 Last Admin: 02/14/18 05:35 Dose: 175 mcg Metoprolol Tartrate (Lopressor) 75 mg PO BID [facility] Stop: 08/16/18 21:01 Naloxone HCl (Narcan) 0.4 mg IVP Q2MIN PRN PRN Reason: SEE COMMENTS Stop: 08/11/18 08:11 Nitroglycerin (Nitroglycerin) 0.4 mg SL Q5MIN PRN PRN Reason: CHEST PAIN Stop: 08/10/18 16:11 Nystatin (Nystop) 1 appl TP BID [facility] Stop: 08/15/18 01:16 Last Admin: 02/14/18 09:36 Dose: 1 appl Ondansetron HCl (Zofran) 4 mg IVP Q6HR PRN; Protocol PRN Reason: Nausea Stop: 08/12/18 16:10 Last Admin: 02/14/18 08:04 Dose: 4 mg Potassium Chloride (Potassium Chloride) 20 meq PO BIDWM [facility] Stop: 08/10/18 17:01 Last Admin: 02/14/18 08:04 Dose: 20 meq Primidone (Mysoline) 50 mg PO HS [facility] Stop: 08/10/18 21:01 Last Admin: 02/13/18 21:17 Dose: 50 mg Sertraline HCl (Zoloft) 100 mg PO BID [facility] Stop: 08/10/18 21:01 Last Admin: 02/14/18 08:04 Dose: 100 mg Simethicone (Gas-X) 80 mg PO TID PRN PRN Reason: Dyspepsia Stop: 08/12/18 11:52 Last Admin: 02/14/18 04:27 Dose: 80 mg Warfarin Sodium (Coumadin Perpt) 1 each PO DAILY@1800 PRN PRN Reason: SEE COMMENTS Stop: 08/11/18 18:01 Warfarin Sodium (Coumadin) 3 mg PO 1800 ONE Stop: 02/14/18 18:01 Laboratory Tests 02/14/18 02/14/18 02/14/18 04:43 04:43 04:43 Hgb 13.3 INR 1.6 Potassium 4.0 Creatinine 0.77 - Imaging and Cardiology Chest Xray: report reviewed Stress Test: report reviewed Echo: report reviewed - EKG Interpretation EKG results cardiology: other (Telemetry reviewed with average HR previous 12 hours noted to be 108, a.fib. PVCs noted.) Consult Discharge Plan - Plan Referrals: Jermain Mtz MD [Primary Care Provider] -
[2018-02-14] MEDS ORDERED: *HR* Warfarin 3 MG TABLET PO ONE (18:00)
[2018-02-14] MEDS: Primidone 50 MG TABLET PO SCH (21:24)
[2018-02-14] MEDS: *HR* HYDROcodone/Acet 7.5/325 mg TABLET PO PRN ×2 (21:41→22:44)
[2018-02-15 05:58] LABS: Basophils % 0.4 %; Eosinophils # 0.3 K/mcL (0.0-0.6); Eosinophils % 2.7 %; Hemoglobin 13.5 g/dL (11.5-15.4); Immature Granulocytes % 0.4 % (0-4); Lymphocytes # 2.1 K/mcL (0.6-4.6); Lymphocytes % 22.2 %; Mean Corpuscular HGB Conc 31.4 g/dL (31.6-35.5); Mean Corpuscular Volume 92.5 fL (83.0-100.0); Mean Platelet Volume 9.8 fL (9.4-12.4); Monocytes # 0.7 K/mcL (0.0-1.3); Monocytes % 7.3 %; Neutrophils # 6.4 K/mcL (1.6-8.9); Platelet Count 182 K/mcL (140-400); Red Blood Count 4.65 M/mcL (3.82-4.97); Red Cell Distribution Width 15.2 % (11.5-14.5)
[2018-02-15 06:02] LABS: INR 1.5; Prothrombin Time 17.1 Seconds (9.4-12.1)
[2018-02-15 06:20] LABS: BUN/Creatinine Ratio 30 (6-26); Blood Urea Nitrogen 20 mg/dL (8-23); Carbon Dioxide 31 mEq/L (23-29); Chloride 96 mEq/L (98-107); Glucose 183 mg/dL (70-105); Osmolality,Calculated 291 (280-300); Potassium 4.4 mEq/L (3.5-5.1); Sodium 137 mEq/L (136-145); eGFR For African Americans > 60 (> 60); eGFR For Non-African Americans > 60 (> 60)
[2018-02-15] MEDS: Budesonide/Formoterol 160/4.5 MDI IH SCH ×2 (07:49→21:35)
[2018-02-15] MEDS: hydrOXYzine pamoate 25 MG CAPSULE PO SCH ×3 (08:04→20:25)
[2018-02-15] MEDS: Fenofibrate 54 MG TABLET PO SCH (08:04)
[2018-02-15] MEDS: Furosemide 40 MG TABLET PO SCH (08:04)
[2018-02-15] MEDS: Gabapentin 100 MG CAPSULE PO SCH ×3 (08:04→20:25)
[2018-02-15] MEDS: Diltiazem CD (24hr) 180 MG CAPSULE PO SCH (08:04)
[2018-02-15] MEDS: Famotidine 20 MG TABLET PO SCH ×2 (08:05→20:25)
[2018-02-15] MEDS: Cholestyramine 4 GM POWD.PACK PO SCH ×2 (08:05→17:13)
[2018-02-15] MEDS: Isosorbide MONOnitrate (24 HR) 30 MG TAB.ER.24H PO SCH (08:05)
[2018-02-15] MEDS: Nystatin POWDER 30 GM BOTTLE TP SCH ×2 (08:05→20:32)
[2018-02-15] MEDS: Insulin LISPRO 300 UNITS/3 ML VIAL SQ SCH ×3 (08:14→17:14)
[2018-02-15] MEDS ORDERED: Insulin LISPRO 300 UNITS/3 ML VIAL SQ SCH (08:33)
[2018-02-15] MEDS ORDERED: Metoprolol 100 MG TABLET PO SCH ×2 (09:00→21:00)
--- NOTE | 2018-02-15 14:14 | Internal Med Progress Note ---
<Abdelrahman Calzada - Last Filed: 02/15/18 18:27> Date of Encounter: 02/15/18 Time of Encounter: 10:00 - Assessment and plan (1) Atrial fibrillation with RVR Current Visit: Yes Status: Acute Assessment and plan: - likely secondary to her diastolic CHF- BNP: 201, CTA showed pleural effusions and mid interstitial edema and pulmonary edema. she continues to be in Afib RVR. HR averaging 110-120s. - Her nuclear stress test was negative for ischemia or infarct -patient's heart rate has been in the range of 90-120 today - On Cardizem CD 360 mg by mouth daily - will switch to cardizem 180mg BID. Decreased lopressor to 50 mg BID. - She received Digoxin 0.5mg IVP once for her heart rate . - 0.125mg PO Digoxin daily starting tomorrow. - H&H stable (2) COPD (chronic obstructive pulmonary disease) Current Visit: No Status: Chronic Assessment and plan: - patient has a Hx of COPD, is on 3L home O2. - currently she doesn't show any evidence of SOB, increased cough or change in the color of her sputum, her SPO2 > 88% - she continues to be on her home medications (Budesonide/Formotrel) - we will continue to monitor her vitals for any potential COPD exacerbation Qualifiers: COPD type: unspecified COPD Qualified Code(s): J44.9 - Chronic obstructive pulmonary disease, unspecified (3) Hypertension, essential Current Visit: No Status: Chronic Assessment and plan: - patient has a PMH of HTN - Patient has been normotensive in the last 24 hrs SBP : 110-130 - we will continue to monitor her BP (4) Diabetes mellitus type 2, noninsulin dependent Current Visit: No Status: Chronic Assessment and plan: - patient has a Hx of DM2 - her currently blood glucose haev been between 180-190 -Increased her insulin sliding scale from low to medium. - continue Accu checks (5) DVT prophylaxis Current Visit: No Status: Acute Assessment and plan: She is on chronic anticoagulation with warfarin for history of DVT and PE INR therapeutic range (1.5) (6) CHF (congestive heart failure) Current Visit: Yes Status: Acute Assessment and plan: -patient presented with JOHNSON and mild orthopnea, BNP: 201, - CTA: showed interstitial and pulmonary edema, with small b/l pleural effusions. Echo showed preserved EF (60%) - Net I/O = -910 mL, Cumulative Is/Os: -11360 mL, current weight loss of 1.5kg since yesterday - Patient currently doesn't appear to overly volume depleted,she denies dyspnea , orthopena , her physical examination looks unremarkable (no rales, JVD) :she continues to be on 40 mg PO furosemide - continue to monitor her Is/Os . Monitor sings of any hemodynamic instability Qualifiers: Heart failure type: diastolic Qualified Code(s): I50.30 - Unspecified diastolic (congestive) heart failure - Time Spent With Patient Total time spent is greater than 50% in coordination of care (as documented) at patient's floor/unit and/or counseling patient: - Subjective Interval history: -no acute events overnight. Patient endorses no SOB, dyspnea, orthopnea this morning. Her extremities do not look edematous. She continues to be tachycardic with heart rate fluctuating between 90-110s . She received 100mg Metoprolol this AM. As per Cardiology give 0.5mg IV digoxin x1 now, then 0.125mg po daily starting tomorrow. Will switch cardizem to 180mg BID. Will decrease lopressor to 50mg BID. H&H stable ( - Constitutional Vitals: Temp Pulse Resp BP Pulse Ox 98.7 F 94 18 100/81 95 02/15/18 11:19 02/15/18 11:19 02/15/18 11:19 02/15/18 11:19 02/15/18 11:19 General appearance: Present: A&O X 3, morbidly obese - Head Head exam: Present: atraumatic, normal inspection, normocephalic - Respiratory Additional comments: CTAB, no wheezing, ronchi or rales - Cardiovascular Additional comments: irregular irregular rhythm , no gallops , murmurs or rubs, no JVD, no S3 sounds appreciated - GI/Abdominal Additional comments: abdomen soft, non-tender non-distended , no hepato or splenomegaly - Extremities Exam Additional comments: no pedal edema, ROM appropriate for her age, pulse symmetrical bilaterally Internal Medicine: Result - Labs CBC & Chem 7: 02/15/18 05:44 02/15/18 05:44 Labs: Short CBC 02/15/18 Range/Units 05:44 WBC 9.5 (4.3-11.1) K/mcL Hgb 13.5 (11.5-15.4) g/dL Hct 43.0 (35.3-44.9) % Plt Count 182 (140-400) K/mcL Neutrophils # 6.4 (1.6-8.9) K/mcL BMP 02/15/18 05:44 Sodium 137 Potassium 4.4 Chloride 96 L Carbon Dioxide 31 H BUN 20 Creatinine 0.66 Glucose 183 H Calcium 10.0 - ABG Interpretation ABG results: PT/INR, D-dimer PT 17.1 Seconds (9.4-12.1) H 02/15/18 05:44 Consult Discharge Plan - Plan Referrals: Jermain Mtz MD [Primary Care Provider] - <Norm Harper - Last Filed: 02/15/18 19:56> Date of Encounter: 02/15/18 - Assessment and plan (1) COPD (chronic obstructive pulmonary disease) Current Visit: No Status: Chronic Qualifiers: COPD type: unspecified COPD Qualified Code(s): J44.9 - Chronic obstructive pulmonary disease, unspecified (2) Hypertension, essential Current Visit: No Status: Chronic (3) Diabetes mellitus type 2, noninsulin dependent Current Visit: No Status: Chronic (4) DVT prophylaxis Current Visit: No Status: Acute (5) Atrial fibrillation with RVR Current Visit: Yes Status: Acute (6) CHF (congestive heart failure) Current Visit: Yes Status: Acute Qualifiers: Heart failure type: diastolic Heart failure chronicity: chronic Qualified Code(s): I50.32 - Chronic diastolic (congestive) heart failure (7) Atrial fibrillation Current Visit: Yes Status: Chronic Qualifiers: Atrial fibrillation type: chronic Qualified Code(s): I48.2 - Chronic atrial fibrillation (8) Morbid obesity Current Visit: Yes Status: Chronic - Time Spent With Patient Total time spent is greater than 50% in coordination of care (as documented) at patient's floor/unit and/or counseling patient: - Constitutional Vitals: Temp Pulse Resp BP Pulse Ox 97.9 F 80 17 100/81 94 02/15/18 16:56 02/15/18 16:56 02/15/18 16:56 02/15/18 11:19 02/15/18 16:56 Internal Medicine: Result - Labs CBC & Chem 7: 02/15/18 05:44 02/15/18 05:44 Labs: Short CBC 02/15/18 Range/Units 05:44 WBC 9.5 (4.3-11.1) K/mcL Hgb 13.5 (11.5-15.4) g/dL Hct 43.0 (35.3-44.9) % Plt Count 182 (140-400) K/mcL Neutrophils # 6.4 (1.6-8.9) K/mcL BMP 02/15/18 05:44 Sodium 137 Potassium 4.4 Chloride 96 L Carbon Dioxide 31 H BUN 20 Creatinine 0.66 Glucose 183 H Calcium 10.0 - ABG Interpretation ABG results: PT/INR, D-dimer PT 17.1 Seconds (9.4-12.1) H 02/15/18 05:44 - Attending Attestation I examined this patient and my medical decision-making was reviewed with the Resident Physician on 02/15/18. I agree with the documented findings, disposition and treatment plan as described except to the extent set forth below. Ms Trinidad is currently admitted for acute rapid a fib and CHF. She remains moderate to high risk due to potential for worsening clinical status. Ms Trinidad was still tachycardic this AM. Denies CP or SOB at this time. No fever or chills. Up in chair. No GI issues. Exam alert Comfortable Mucus membranes dry Heart irreg - not tachy now Lungs clear I/P 1. A fib - rate improved with dig 2. CHF Further diagnoses and plan as above Anticipate d/c in AM.
[2018-02-15] MEDS ORDERED: *HR* Digoxin 0.5 MG/2 ML AMPUL IVP ONE (14:26)
--- NOTE | 2018-02-15 15:24 | Cardiology Progress Note ---
Date of Encounter: 02/15/18 Time of Encounter: 15:21 Assessment and Plan (1) Atrial fibrillation with RVR Current Visit: Yes Status: Acute Per Cardiology: -New onset a.fib. Telemetry shows average heart rate 107 the past 12 hours. -On Cardizem CD 360 mg by mouth daily and Lopressor 100 mg by mouth twice a day. -Stress test negative for ischemia. 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 INR = 1.5, target INR 2.0-3.0. H&H stable. -Discussed and reviewed with , will give 0.5mg IV digoxin x1 now, then 0.125mg po daily starting tomorrow. Will switch cardizem to 180mg BID. Will decrease lopressor to 50mg BID. -Will continue to monitor. (2) CAD (coronary artery disease) Current Visit: Yes Status: Chronic Per cardiology: -Known CAD s/p [facility] 10 years ago with mild CAD per patient report. Denies chest pain. Troponins negative x4. Echo: -Echo with LVEF preserved, no segmental wall motion abnormalities noted. -Stress negative for ischemia. Qualifiers: Coronary Disease-Associated Artery/Lesion type: [place] artery [place] vs. transplanted heart: [place] heart Associated angina: without angina Qualified Code(s): I25.10 - Atherosclerotic heart disease of [place] coronary artery without angina pectoris Discussion w patient/family: The assessment and plan as outlined above was discussed with the patient who expressed understanding and agreement. All questions were answered. Thank you for involving us in the care of your patient. Please call with any questions. Discussed and reviewed with . Subjective Principal diagnosis: Afib RVR Interval history: Patient denies shortness of breath this morning. States breathing is at baseline. Denies palpitations, fluttering. Objective Vital Signs Temperature 98.9 F 02/08/18 10:01 Pulse Rate 122 02/08/18 10:01 Respiratory Rate 22 02/08/18 10:01 Blood Pressure 125/103 02/08/18 10:01 O2 Sat by Pulse Oximetry 97 02/08/18 10:01 Temperature 98.7 F 02/15/18 11:19 Pulse Rate 94 02/15/18 11:19 Respiratory Rate 18 02/15/18 11:19 Blood Pressure 100/81 02/15/18 11:19 O2 Sat by Pulse Oximetry 95 07/17/18 11:19 Oxygen Delivery Oxygen Delivery Room Air General: Conversant, No Apparent Distress HEENT: Atraumatic, Normocephaly, Mucus Membranes Moist Neck: No JVD, Normal carotid pulses Cardiac: Normal S1 and S2, No Murmur, Other (Irregularly irregular ) Lungs: Normal Breath Sounds, No Wheeze, Rales, Rhonchi Neuro: Alert and responsive, No focal deficits noted Abdomen: Soft, Non-Tender Skin: No rashes noted on visualized skin Musculoskeletal: No Chest Wall Tenderness Extremities: No Clubbing, No Cyanosis, No Edema, Normal Pulses Results 02/15/18 05:44 02/15/18 05:44 Lab Results Active Medications Hydrocodone Bitart/Acetaminophen ([place] 7.5-325 Mg) 1 tab PO Q6HR PRN PRN Reason: Pain Stop: 08/10/18 16:11 Last Admin: 02/14/18 22:44 Dose: 1 tab Albuterol Sulfate (Albuterol Sulfate) 2.5 mg PO TID [facility] Stop: 08/10/18 21:01 Last Admin: 02/13/18 09:43 Dose: 2.5 mg Atorvastatin Calcium (Lipitor) 10 mg PO HS [facility] Stop: 08/10/18 21:01 Last Admin: 02/14/18 21:24 Dose: 10 mg Budesonide/Formoterol Fumarate (Symbicort) 2 puff IH BIDR [facility] PRN Reason: Protocol Stop: 08/10/18 22:01 Last Admin: 02/15/18 07:49 Dose: 2 puff Cholestyramine Resin (Cholestyramine) 4 gm PO BIDAC [facility] Stop: 08/10/18 16:31 Last Admin: 02/15/18 08:05 Dose: 4 gm Dextrose/Water (Dextrose 50% (Syg)) 25 ml IVP AD PRN PRN Reason: Hypoglycemia Stop: 08/10/18 23:05 Dicyclomine HCl (Bentyl) 10 mg PO QID PRN PRN Reason: CRAMPING Stop: 08/10/18 16:11 Digoxin (Lanoxin) 0.125 mg PO DAILY [facility] Stop: 08/18/18 09:01 Diltiazem HCl (Cardizem Cd) 180 mg PO BID [facility] Stop: 08/18/18 09:01 Ergocalciferol (Drisdol (50,000 Unit)) 50,000 unit PO Tu [facility] Stop: 08/10/18 16:16 Famotidine (Pepcid) 20 mg PO BID [facility] Stop: 08/10/18 21:01 Last Admin: 02/15/18 08:05 Dose: 20 mg Fenofibrate (Tricor) 54 mg PO DAILY [facility] PRN Reason: Protocol Stop: 08/11/18 09:01 Last Admin: 02/15/18 08:04 Dose: 54 mg Furosemide (Lasix) 40 mg PO DAILY [facility] Stop: 08/14/18 09:01 Last Admin: 02/15/18 08:04 Dose: 40 mg Gabapentin (Neurontin) 100 mg PO TID [facility] Stop: 08/10/18 21:01 Last Admin: 02/15/18 15:07 Dose: 100 mg Glucagon (Glucagen) 1 mg IM ONCE PRN PRN Reason: Hypoglycemia Stop: 08/10/18 23:05 Glucose (Gluctose) 15 gm PO ONCE PRN PRN Reason: Hypoglycemia Stop: 08/10/18 23:05 Glucose (Gluctose) 30 gm PO ONCE PRN PRN Reason: Hypoglycemia Stop: 08/10/18 23:05 Hydroxyzine Pamoate (Hydroxyzine Pamoate) 25 mg PO TID [facility] Stop: 08/10/18 21:01 Last Admin: 02/15/18 15:07 Dose: 25 mg Dextrose (Dextrose 5%) 1,000 mls @ 100 mls/hr IVC .Q10H PRN PRN Reason: HYPOGLYCEMIA Stop: 08/10/18 23:05 Insulin Human Lispro (Humalog) 0 units SQ [facility] PRN Reason: Protocol Stop: 08/11/18 21:01 Insulin Human Lispro (Humalog) 0 units SQ TIDAC [facility] PRN Reason: Protocol Stop: 08/11/18 07:31 Last Admin: 02/15/18 12:34 Dose: 10 units Isosorbide Mononitrate (Imdur) 30 mg PO DAILY [facility] Stop: 08/16/18 09:01 Last Admin: 02/15/18 08:05 Dose: 30 mg Levalbuterol HCl (Xopenex) 1 puff IH [id number] PRN PRN Reason: Shortness Of Breath Stop: 08/12/18 16:01 Levothyroxine Sodium (Synthroid) 175 mcg PO 0630 [facility] Stop: 08/11/18 06:31 Last Admin: 02/15/18 08:05 Dose: 175 mcg Metoprolol Tartrate (Lopressor) 50 mg PO BID [facility] Stop: 08/17/18 21:01 Naloxone HCl (Narcan) 0.4 mg IVP Q2MIN PRN PRN Reason: SEE COMMENTS Stop: 08/11/18 08:11 Nitroglycerin (Nitroglycerin) 0.4 mg SL Q5MIN PRN PRN Reason: CHEST PAIN Stop: 08/10/18 16:11 Nystatin (Nystop) 1 appl TP BID [facility] Stop: 08/15/18 01:16 Last Admin: 02/15/18 08:05 Dose: 1 appl Ondansetron HCl (Zofran) 4 mg IVP Q6HR PRN; Protocol PRN Reason: Nausea Stop: 08/12/18 16:10 Last Admin: 02/14/18 08:04 Dose: 4 mg Potassium Chloride (Potassium Chloride) 20 meq PO BIDWM [facility] Stop: 08/10/18 17:01 Last Admin: 02/15/18 08:04 Dose: 20 meq Primidone (Mysoline) 50 mg PO HS [facility] Stop: 08/10/18 21:01 Last Admin: 02/14/18 21:24 Dose: 50 mg Sertraline HCl (Zoloft) 100 mg PO BID [facility] Stop: 08/10/18 21:01 Last Admin: 02/15/18 08:04 Dose: 100 mg Simethicone (Gas-X) 80 mg PO TID PRN PRN Reason: Dyspepsia Stop: 08/12/18 11:52 Last Admin: 02/14/18 04:27 Dose: 80 mg Warfarin Sodium (Coumadin Perpt) 1 each PO DAILY@1800 PRN PRN Reason: SEE COMMENTS Stop: 08/11/18 18:01 Warfarin Sodium (Coumadin) 5 mg PO 1800 ONE Stop: 02/15/18 18:01 Laboratory Tests 02/15/18 02/15/18 05:44 05:44 Hgb 13.5 Potassium 4.4 Creatinine 0.66 - Imaging and Cardiology Chest Xray: report reviewed Stress Test: report reviewed Echo: report reviewed - EKG Interpretation EKG results cardiology: other (Telemetry reviewed with average HR previous 12 hours noted to be 107, a.fib. PVCs noted.) Consult Discharge Plan - Plan Referrals: Jermain Mtz MD [Primary Care Provider] -
[2018-02-15] MEDS ORDERED: *HR* Warfarin 5 MG TABLET PO ONE (18:00)
[2018-02-15] MEDS: *HR* HYDROcodone/Acet 7.5/325 mg TABLET PO PRN (20:25)
[2018-02-15] MEDS: Primidone 50 MG TABLET PO SCH (20:25)
[2018-02-15] MEDS: Albuterol Sulfate 2 MG/5 ML UDC PO SCH (20:26)
[2018-02-16] MEDS: *HR* HYDROcodone/Acet 7.5/325 mg TABLET PO PRN (03:33)
[2018-02-16 05:48] LABS: Basophils % 0.4 %; Eosinophils # 0.2 K/mcL (0.0-0.6); Eosinophils % 2.2 %; Hematocrit 39.4 % (35.3-44.9); Hemoglobin 12.5 g/dL (11.5-15.4); Immature Granulocytes % 0.3 % (0-4); Lymphocytes % 22.5 %; Mean Corpuscular HGB Conc 31.7 g/dL (31.6-35.5); Mean Corpuscular Hemoglobin 29.1 pg (28.0-33.3); Mean Corpuscular Volume 91.8 fL (83.0-100.0); Mean Platelet Volume 10.2 fL (9.4-12.4); Monocytes # 0.7 K/mcL (0.0-1.3); Monocytes % 7.5 %; Neutrophils # 6.1 K/mcL (1.6-8.9); Platelet Count 157 K/mcL (140-400); Red Blood Count 4.29 M/mcL (3.82-4.97); Segmented Neutrophils % 67.1 %
[2018-02-16 05:55] LABS: INR 1.5; Prothrombin Time 16.9 Seconds (9.4-12.1)
[2018-02-16 06:05] LABS: BUN/Creatinine Ratio 33 (6-26); Blood Urea Nitrogen 27 mg/dL (8-23); Calcium 9.6 mg/dL (8.6-10.3); Carbon Dioxide 28 mEq/L (23-29); Chloride 99 mEq/L (98-107); Glucose 192 mg/dL (70-105); Osmolality,Calculated 290 (280-300); Potassium 4.3 mEq/L (3.5-5.1); Sodium 135 mEq/L (136-145); eGFR For African Americans > 60 (> 60); eGFR For Non-African Americans > 60 (> 60)
[2018-02-16] MEDS: Budesonide/Formoterol 160/4.5 MDI IH SCH (07:43)
[2018-02-16] MEDS ORDERED: *HR* Digoxin 0.125 MG TABLET PO SCH (09:00)
[2018-02-16] MEDS ORDERED: Diltiazem CD (24hr) 180 MG CAPSULE PO SCH (09:00)
[2018-02-16] MEDS: Cholestyramine 4 GM POWD.PACK PO SCH ×2 (09:33→16:33)
[2018-02-16] MEDS: Gabapentin 100 MG CAPSULE PO SCH ×2 (09:34→16:32)
[2018-02-16] MEDS: Isosorbide MONOnitrate (24 HR) 30 MG TAB.ER.24H PO SCH (09:34)
[2018-02-16] MEDS: Fenofibrate 54 MG TABLET PO SCH (09:34)
[2018-02-16] MEDS: hydrOXYzine pamoate 25 MG CAPSULE PO SCH ×2 (09:34→16:32)
[2018-02-16] MEDS: Furosemide 40 MG TABLET PO SCH (09:34)
[2018-02-16] MEDS: Famotidine 20 MG TABLET PO SCH (09:34)
[2018-02-16] MEDS: Insulin LISPRO 300 UNITS/3 ML VIAL SQ SCH ×3 (09:34→16:33)
[2018-02-16] MEDS: Albuterol Sulfate 2 MG/5 ML UDC PO SCH ×3 (09:38→16:33)
[2018-02-16] MEDS: Nystatin POWDER 30 GM BOTTLE TP SCH (09:41)
--- NOTE | 2018-02-16 10:13 | Internal Med Progress Note ---
Date of Encounter: 02/16/18 Time of Encounter: 10:13 - Assessment and plan (1) COPD (chronic obstructive pulmonary disease) Current Visit: No Status: Chronic Qualifiers: COPD type: unspecified COPD Qualified Code(s): J44.9 - Chronic obstructive pulmonary disease, unspecified (2) Hypertension, essential Current Visit: No Status: Chronic (3) Diabetes mellitus type 2, noninsulin dependent Current Visit: No Status: Chronic (4) DVT prophylaxis Current Visit: No Status: Acute (5) Atrial fibrillation with RVR Current Visit: Yes Status: Acute (6) CHF (congestive heart failure) Current Visit: Yes Status: Acute Qualifiers: Heart failure type: diastolic Heart failure chronicity: chronic Qualified Code(s): I50.32 - Chronic diastolic (congestive) heart failure (7) Atrial fibrillation Current Visit: Yes Status: Chronic Qualifiers: Atrial fibrillation type: chronic Qualified Code(s): I48.2 - Chronic atrial fibrillation (8) Morbid obesity Current Visit: Yes Status: Chronic - Time Spent With Patient Total time spent is greater than 50% in coordination of care (as documented) at patient's floor/unit and/or counseling patient: - Subjective Interval history: -no acute events overnight. Patient endorses no SOB, dyspnea, orthopnea this morning. Her extremities do not look edematous. She continues to be tachycardic with heart rate fluctuating between 90-110s . She received 100mg Metoprolol this AM. As per Cardiology give 0.5mg IV digoxin x1 now, then 0.125mg po daily starting tomorrow. Will switch cardizem to 180mg BID. Will decrease lopressor to 50mg BID. H&H stable 02/16: no acute distress today. Dig 0.125 dose, ( - Constitutional Vitals: Temp Pulse Resp BP Pulse Ox 97.6 F 101 19 92/81 94 02/16/18 07:39 02/16/18 07:39 02/16/18 07:44 02/16/18 07:39 02/16/18 07:44 General appearance: Present: A&O X 3, morbidly obese Internal Medicine: Result - Labs CBC & Chem 7: 02/16/18 05:00 02/16/18 05:00 Labs: Short CBC 02/16/18 Range/Units 05:00 WBC 9.1 (4.3-11.1) K/mcL Hgb 12.5 (11.5-15.4) g/dL Hct 39.4 (35.3-44.9) % Plt Count 157 (140-400) K/mcL Neutrophils # 6.1 (1.6-8.9) K/mcL BMP 02/16/18 05:00 Sodium 135 L Potassium 4.3 Chloride 99 Carbon Dioxide 28 BUN 27 H Creatinine 0.81 Glucose 192 H Calcium 9.6 - ABG Interpretation ABG results: PT/INR, D-dimer PT 16.9 Seconds (9.4-12.1) H 02/16/18 05:00 Consult Discharge Plan - Plan Referrals: Jermain Mtz MD [Primary Care Provider] -
--- NOTE | 2018-02-16 12:50 | Event Note ---
Date of Encounter: 02/16/18 Time of Encounter: 12:48 - Cardiology Event Note Telemetry reviewed with average HR in the 90s. Continue current regimen of cardizem CD 360mg, lopressor 50mg BID, and digoxin 0.125mg daily. Cardiology will sign off and will follow in outpatient setting. Follow up set.
--- NOTE | 2018-02-16 15:06 | Discharge Summary ---
<Abdelrahman Calzada - Last Filed: 02/16/18 16:15> - NOTES TO OUTPATIENT PROVIDER Notes to Outpatient Provider: - Given Digoxin 0.125 PO daily. - Given Diltiazem 180 mg PO (BID). - Given Isosorbide Mononitrate 30 mg PO. - follow up with cardiology as an out patient in 4-6 weeks Orders not resulted at time of discharge: Pending orders 02/11/18 09:30 NM tere perf SPECT multi [NM] Routine 02/17/18 04:00 PT/INR [Prothrombin Time INR] [COAG] AM 0400 02/18/18 04:00 PT/INR [Prothrombin Time INR] [COAG] AM 0400 Date of Encounter: 02/16/18 Time of Encounter: 10:30 - Discharge Diagnosis (1) COPD (chronic obstructive pulmonary disease) Priority: Secondary Status: Chronic Qualifiers: COPD type: unspecified COPD Qualified Code(s): J44.9 - Chronic obstructive pulmonary disease, unspecified (2) Hypertension, essential Priority: Secondary Status: Chronic (3) Diabetes mellitus type 2, noninsulin dependent Priority: Secondary Status: Chronic (4) DVT prophylaxis Priority: Secondary Status: Acute (5) Atrial fibrillation with RVR Priority: Primary Status: Acute (6) CHF (congestive heart failure) Priority: Secondary Status: Acute Qualifiers: Heart failure type: diastolic Heart failure chronicity: chronic Qualified Code(s): I50.32 - Chronic diastolic (congestive) heart failure (7) Atrial fibrillation Priority: Secondary Status: Chronic Qualifiers: Atrial fibrillation type: chronic Qualified Code(s): I48.2 - Chronic atrial fibrillation (8) Morbid obesity Priority: Secondary Status: Chronic Hospital course: Ms. Trinidad is a 77 year old female with PMHx of COPD, DVT, PE and DM2 who was admitted to the medicine floor for JOHNSON and mild orthopnea was found to have Heart failure with preserved EF and Afiv RVR. her CTA also showed interstitial and pulmonary edema, with small b/l pleural effusions and her Echo showed preserved EF (60%). During the course of her hospital stay, she was initially on IV Cardizem which we then changed to PO Caridezm. Her araujo rate remained in the range of 110-130, therefore we also started her on home medication metoprolol and then continue to titrate the dose. However, since the heart rate was still above 100, we added Digoxin (0.125) to her medicine regimen and the patient's condition was at her baseline. With every progressing day, her SOB got better with bare minimal distress. She also underwent the stress test which was negative for any artifact. She could follow up with the supervisor [facility] outpatient basis to assess her cardiac function in 4-6 weeks from now - Time Spent with Patient Total time spent providing and/or coordinating discharge services: - Discharge Medications Prescriptions: Digoxin [Lanoxin] 0.125 mg PO DAILY #30 tablet Diltiazem CD (24hr) [Cardizem CD] 180 mg PO BID #60 cap.er.24h Isosorbide MONOnitrate (24 HR) [Imdur] 30 mg PO DAILY #30 tab.er.24h Home Medications: Albuterol Sulfate 2.5 mg PO TID 09/05/15 [History] Albuterol Sulfate [Albuterol Inhaler] 2 puff IH Q4H PRN 09/05/15 [History] Atorvastatin [Lipitor] 10 mg PO HS 09/05/15 [History] Budesonide/Formoterol 160/4.5 [Symbicort 160/4.5] 2 puff IH BIDR 09/05/15 [ History] Ergocalciferol (VITAMIN D2) [Vitamin D2] 50,000 unit PO QWEEK 09/05/15 [History] Fenofibrate [Tricor] 54 mg PO DAILY 09/05/15 [History] Gabapentin [Neurontin] 100 mg PO TID 09/05/15 [History] Hydrocodone/Acetaminophen [[place] 7.5-325 Tablet] 1 tab PO Q6HR PRN 09/05/15 [ History] Levothyroxine Sodium [Tirosint] 175 mcg PO DAILY 09/05/15 [History] Metoprolol [Lopressor] 50 mg PO BID 09/05/15 [History] Nitroglycerin [Nitrostat] 0.4 mg SL Q5-10MIN PRN 09/05/15 [History] Pantoprazole Sodium [Protonix] 40 mg PO DAILY 09/05/15 [History] Potassium Chloride [K-Tab ER] 20 meq PO BID 09/05/15 [History] Primidone [Mysoline] 50 mg PO HS 09/05/15 [History] Ranitidine HCl [Zantac] 150 mg PO BID 09/05/15 [History] Sertraline HCl [Zoloft] 100 mg PO BID 09/05/15 [History] Warfarin [Coumadin] [address] 09/05/15 [History] glipiZIDE [Glucotrol] 2.5 mg PO DAILY 09/05/15 [History] hydrOXYzine HCl [Hydroxyzine HCl] 25 mg PO TID 09/05/15 [History] Dicyclomine [Bentyl] 10 mg PO QID PRN 08/07/16 [History] Oxygen 2 l .ROUTE AD 08/07/16 [History] Warfarin [Coumadin] 2.5 mg PO MOTUWETHFRSA 08/07/16 [History] Furosemide [Lasix] 40 mg PO DAILY #30 tablet 08/09/16 [Rx] Cholestyramine 4 gm PO BIDAC 02/08/18 [History] Digoxin [Lanoxin] 0.125 mg PO DAILY #30 tablet 02/16/18 [Rx] Diltiazem CD (24hr) [Cardizem CD] 180 mg PO BID #60 cap.er.24h 02/16/18 [Rx] Isosorbide MONOnitrate (24 HR) [Imdur] 30 mg PO DAILY #30 tab.er.24h 02/16/18 [ Rx] Allergies/Adverse Reactions: 3 Allergy/AdvReac Type Severity Reaction Status Date / Time aspirin AdvReac Anaphylaxis Verified 09/04/15 20:11 metoclopramide [From Reglan] AdvReac See Verified 09/04/15 20:11 Comments prednisone AdvReac See Verified 09/04/15 20:11 Comments Date of admission: 02/09/18 13:36 Primary care physician: Jermain Mtz MD Consults: 02/11/18 13:51 Consult to Physical Therapy [CONS] Routine Comment: Evaluate, develop and implement POC Reason for Consult: discharge planning, poss rehab placement Does patient have active BEDREST order?: No Is patient medically & hemodynamically stable?: Yes 02/11/18 13:52 Consult to Occupational Therapy [CONS] Routine Comment: Evaluate, develop and implement POC Reason for Consult: discharge planning, possible rehab need Does patient have active BEDREST order?: No Is patient medically & hemodynamically stable?: Yes 02/14/18 14:36 Consult to Senior Vice President [CONS] Routine Reason for SW Consult: PT/OT rec SNF - Constitutional Vitals: Temp Pulse Resp BP Pulse Ox 97.6 F 101 19 92/81 94 02/16/18 07:39 02/16/18 07:39 02/16/18 07:44 02/16/18 07:39 02/16/18 07:44 General appearance: Present: A&O X 3, morbidly obese - Head Head exam: Present: atraumatic, normal inspection, normocephalic - Respiratory Additional comments: CTAB, no rales, wheezing or ronchi - Cardiovascular Additional comments: no gallops , murmurs or rubs, no JVD, no S3 sounds appreciated - GI/Abdominal Additional comments: soft, firm, non-tender, no hepatomegaly or splenomegaly - Extremities Exam Additional comments: no edema appreciate, ROM appropriate for her age, pulses symmetrical bilaterally - Patient Status Disposition: Transfer Hospital Swing Bed Condition: Fair Functional capacity at discharge: independent ambulation Overall status at discharge: patient is progressing back to baseline - Discharge Instructions Follow Up With: Jermain Mtz MD [Primary Care Provider] - 02/21/18 10:00 am - Diet and Activity Activity: increase activity as tolerated, wear oxygen at night Diet: diabetic diet, low fat, low cholesterol, low salt diet <Norm Harper - Last Filed: 02/16/18 17:31> Orders not resulted at time of discharge: Pending orders 02/11/18 09:30 NM tere perf SPECT multi [NM] Routine 02/17/18 04:00 PT/INR [Prothrombin Time INR] [COAG] AM 0400 02/18/18 04:00 PT/INR [Prothrombin Time INR] [COAG] AM 0400 Date of Encounter: 02/16/18 - Discharge Diagnosis (1) COPD (chronic obstructive pulmonary disease) Status: Chronic Qualifiers: COPD type: unspecified COPD Qualified Code(s): J44.9 - Chronic obstructive pulmonary disease, unspecified (2) Hypertension, essential Status: Chronic (3) Diabetes mellitus type 2, noninsulin dependent Status: Chronic (4) CHF (congestive heart failure) Priority: Primary Status: Resolved Qualifiers: Heart failure type: diastolic Heart failure chronicity: acute on chronic Qualified Code(s): I50.33 - Acute on chronic diastolic (congestive) heart failure (5) Atrial fibrillation Status: Chronic Qualifiers: Atrial fibrillation type: chronic Qualified Code(s): I48.2 - Chronic atrial fibrillation (6) Morbid obesity Status: Chronic Hospital course: Ms. Trinidad is a 77 year old female Discharge discussed with: patient - Time Spent with Patient Total time spent providing and/or coordinating discharge services: 39min Date of admission: 02/09/18 13:36 Primary care physician: Jermain Mtz MD Consults: 02/11/18 13:51 Consult to Physical Therapy [CONS] Routine Comment: Evaluate, develop and implement POC Reason for Consult: discharge planning, poss rehab placement Does patient have active BEDREST order?: No Is patient medically & hemodynamically stable?: Yes 02/11/18 13:52 Consult to Occupational Therapy [CONS] Routine Comment: Evaluate, develop and implement POC Reason for Consult: discharge planning, possible rehab need Does patient have active BEDREST order?: No Is patient medically & hemodynamically stable?: Yes 02/14/18 14:36 Consult to Senior Vice President [CONS] Routine Reason for SW Consult: PT/OT rec SNF - Constitutional Vitals: Temp Pulse Resp BP Pulse Ox 97.6 F 85 20 97/83 96 02/16/18 15:09 02/16/18 15:09 02/16/18 15:09 02/16/18 15:09 02/16/18 15:09 - Attending Attestation I examined this patient and my medical decision-making was reviewed with the Resident Physician on 02/16/18. I agree with the documented findings, disposition and treatment plan as described except to the extent set forth below. Ms Trinidad has been admitted for rapid a fib and acute exac CHF. She has been diuresed with improvement. She underwent cardiac work up and meds were adjusted for rate control. Ultimately she had better control of her heartrate and her breathing was much improved. Today she is afebrile. She feels better and ready for discharge to rehab. Exam Alert Comfortable Mucus membranes dry Heart irreg but not tachy Lungs clear now Plan D/C to SNF today.
[2018-02-16 15:12] VITALS: BP 97/83
--- NOTE | 2018-02-16 16:39 | Physician Discharge Referral ---
- Diagnosis (1) COPD (chronic obstructive pulmonary disease) Status: Chronic (2) Hypertension, essential Status: Chronic (3) Diabetes mellitus type 2, noninsulin dependent Status: Chronic (4) DVT prophylaxis Status: Acute (5) Atrial fibrillation with RVR Status: Acute (6) CHF (congestive heart failure) Status: Acute (7) Atrial fibrillation Status: Chronic (8) Morbid obesity Status: Chronic - Transfer Medications Prescriptions: Digoxin [Lanoxin] 0.125 mg PO DAILY #30 tablet Diltiazem CD (24hr) [Cardizem CD] 180 mg PO BID #60 cap.er.24h Isosorbide MONOnitrate (24 HR) [Imdur] 30 mg PO DAILY #30 tab.er.24h Home Medications: Albuterol Sulfate 2.5 mg PO TID 09/05/15 [History] Albuterol Sulfate [Albuterol Inhaler] 2 puff IH Q4H PRN 09/05/15 [History] Atorvastatin [Lipitor] 10 mg PO HS 09/05/15 [History] Budesonide/Formoterol 160/4.5 [Symbicort 160/4.5] 2 puff IH BIDR 09/05/15 [ History] Ergocalciferol (VITAMIN D2) [Vitamin D2] 50,000 unit PO QWEEK 09/05/15 [History] Fenofibrate [Tricor] 54 mg PO DAILY 09/05/15 [History] Gabapentin [Neurontin] 100 mg PO TID 09/05/15 [History] Hydrocodone/Acetaminophen [[place] 7.5-325 Tablet] 1 tab PO Q6HR PRN 09/05/15 [ History] Levothyroxine Sodium [Tirosint] 175 mcg PO DAILY 09/05/15 [History] Metoprolol [Lopressor] 50 mg PO BID 09/05/15 [History] Nitroglycerin [Nitrostat] 0.4 mg SL Q5-10MIN PRN 09/05/15 [History] Pantoprazole Sodium [Protonix] 40 mg PO DAILY 09/05/15 [History] Potassium Chloride [K-Tab ER] 20 meq PO BID 09/05/15 [History] Primidone [Mysoline] 50 mg PO HS 09/05/15 [History] Ranitidine HCl [Zantac] 150 mg PO BID 09/05/15 [History] Sertraline HCl [Zoloft] 100 mg PO BID 09/05/15 [History] Warfarin [Coumadin] [address] 09/05/15 [History] glipiZIDE [Glucotrol] 2.5 mg PO DAILY 09/05/15 [History] hydrOXYzine HCl [Hydroxyzine HCl] 25 mg PO TID 09/05/15 [History] Dicyclomine [Bentyl] 10 mg PO QID PRN 08/07/16 [History] Oxygen 2 l .ROUTE AD 08/07/16 [History] Warfarin [Coumadin] 2.5 mg PO MOTUWETHFRSA 08/07/16 [History] Furosemide [Lasix] 40 mg PO DAILY #30 tablet 08/09/16 [Rx] Cholestyramine 4 gm PO BIDAC 02/08/18 [History] Digoxin [Lanoxin] 0.125 mg PO DAILY #30 tablet 02/16/18 [Rx] Diltiazem CD (24hr) [Cardizem CD] 180 mg PO BID #60 cap.er.24h 02/16/18 [Rx] Isosorbide MONOnitrate (24 HR) [Imdur] 30 mg PO DAILY #30 tab.er.24h 02/16/18 [ Rx] Allergies/Adverse Reactions: 3 Allergy/AdvReac Type Severity Reaction Status Date / Time aspirin AdvReac Anaphylaxis Verified 09/04/15 20:11 metoclopramide [From Reglan] AdvReac See Verified 09/04/15 20:11 Comments prednisone AdvReac See Verified 09/04/15 20:11 Comments - Respiratory Orders Smoking Cessation: Smoking cessation has been advised. For more information, call the [place] Tobacco Quit Line at 3-297-IRGJ-NOW. CERTIFICATION: I certify that the transfer of the above named patient to an Extended Care Facility is necessary for the continuing treatment of the diagnosis listed. The above information is true and accurate reflection of patient's current condition. Confidential - Redisclosure prohibited without a patient's written consent.
[2018-02-16] MEDS ORDERED: *HR* Warfarin 4 MG TABLET PO ONE (18:00)
== END 2018-02-16 18:02 | disposition other institution (70) | DRG 291 ==
LOC: EMEROO 09:55 → 2NENU 09:55 → SUATTDRO 02-09 13:36
PROVIDERS: ADMIT Internal Medicine; ATTEND Internal Medicine

== ENCOUNTER 2018-06-02 05:14 | Inpatient (IN) ==
[2018-06-02] MEDS ORDERED: Isovue-370 500 ML INFUS..BTL IV ONE (05:21)
--- NOTE | 2018-06-02 05:29 | Emergency Department Note ---
Disposition Clinical Impression: Chest pain, Abdominal pain Disposition: Still a Patient Condition: Fair General Adult HPI - General Stated complaint: abd pain Time Seen by Provider: 06/02/18 05:18 Source: patient, EMS Mode of arrival: EMS Limitations: no limitations Nursing Notes Reviewed: Yes Vital Signs Reviewed: Yes - History of Present Illness HPI Narrative: 77 year old female with a history of COPD, CHF, and diverticulosis presents with abdominal pain and chest pain. Pt stated her symptoms started 1 week ago. It was constant pain in substernal and upper abdomen. Associate with diarrhea. pt visited her primary care physician and was prescribed antibiotics. pt stated her diarrhea was improved. She had normal bowel movement yesterday. But her chest pain and abdominal pain got worse. The pain radiate to left arm. Associate with shortness of breath and nausea. No chills and fever. Pt is on home oxygen. Onset (ago): week(s) (1) Location: chest, abdomen Pain Scale: 8 - Related Data Home Medications Medication Instructions Recorded Confirmed Albuterol Sulfate 2.5 mg PO TID 09/05/15 02/08/18 Albuterol Sulfate [Albuterol 2 puff IH Q4H PRN 09/05/15 02/08/18 Inhaler] Atorvastatin [Lipitor] 10 mg PO HS 09/05/15 02/08/18 Budesonide/Formoterol 160/4.5 2 puff IH BIDR 09/05/15 02/08/18 [Symbicort 160/4.5] Ergocalciferol (VITAMIN D2) 50,000 unit PO QWEEK 09/05/15 02/08/18 [Vitamin D2] Fenofibrate [Tricor] 54 mg PO DAILY 09/05/15 02/08/18 Gabapentin [Neurontin] 100 mg PO TID 09/05/15 02/08/18 Hydrocodone/Acetaminophen [[place] 1 tab PO Q6HR PRN 09/05/15 02/08/18 7.5-325 Tablet] Levothyroxine Sodium [Tirosint] 175 mcg PO DAILY 09/05/15 02/08/18 Metoprolol [Lopressor] 50 mg PO BID 09/05/15 02/08/18 Nitroglycerin [Nitrostat] 0.4 mg SL Q5-10MIN PRN 09/05/15 02/08/18 Pantoprazole Sodium [Protonix] 40 mg PO DAILY 09/05/15 02/08/18 Primidone [Mysoline] 50 mg PO HS 09/05/15 02/08/18 Ranitidine HCl [Zantac] 150 mg PO BID 09/05/15 02/08/18 Sertraline HCl [Zoloft] 100 mg PO BID 09/05/15 02/08/18 glipiZIDE [Glucotrol] 2.5 mg PO DAILY 09/05/15 02/08/18 hydrOXYzine HCl [Hydroxyzine HCl] 25 mg PO TID 09/05/15 02/08/18 Dicyclomine [Bentyl] 10 mg PO QID PRN 08/07/16 02/08/18 Oxygen 2 l .ROUTE AD 08/07/16 02/08/18 Cholestyramine 4 gm PO BIDAC 02/08/18 02/08/18 Previous Rx's Medication Instructions Recorded Furosemide [Lasix] 40 mg PO DAILY #30 tablet 08/09/16 Digoxin [Lanoxin] 0.125 mg PO DAILY #30 tablet 02/16/18 Diltiazem CD (24hr) [Cardizem CD] 180 mg PO BID #60 cap.er.24h 02/16/18 Isosorbide MONOnitrate (24 HR) 60 mg PO DAILY #30 tab.er.24h 02/24/18 [Imdur] Potassium Chloride [K-Tab ER] 20 meq PO DAILY #0 02/24/18 Warfarin [Coumadin] 1 mg PO 1800 #30 tablet 02/24/18 Warfarin [Coumadin] 2.5 mg PO DAILY #0 02/24/18 Allergies Allergy/AdvReac Type Severity Reaction Status Date / Time aspirin AdvReac Anaphylaxis Verified 09/04/15 20:11 metoclopramide [From Reglan] AdvReac See Verified 09/04/15 20:11 Comments prednisone AdvReac See Verified 09/04/15 20:11 Comments Constitutional: Denies: fever Eyes: Denies: eye pain ENT ED: Denies: ear pain Cardiovascular: Reports: chest pain Respiratory: Reports: dyspnea. Denies: cough Gastrointestinal: Reports: abdominal pain, nausea, diarrhea. Denies: vomiting Genitourinary: Denies: urgency Musculoskeletal: Denies: back pain Integumentary: Denies: rash Neurological: Denies: headache Psychiatric: Denies: anxiety Endocrine: Denies: fatigue Hematological/Lymphatic: Denies: easy bleeding Allergic/Immunologic: Denies: facial swelling Past Medical History - Past Medical History Medical history: Reports: COPD, diabetes, hypertension, other Surgical history: Reports: appendectomy, cholecystectomy, hysterectomy Psychiatric history: Reports: no psych history - Social History Smoking Status: Never smoker Smokeless Tobacco Status: No Alcohol use: Reports: none Drug use: Reports: none Physical Exam - General Limitations: no limitations General appearance: alert - Head Head exam: atraumatic - Eye Eye exam: Present: normal appearance. Absent: scleral icterus, conjunctival injection - ENT ENT exam: normal exam - Neck Neck exam: Present: normal inspection, full ROM, trachea midline - Chest Chest inspection: Present: normal inspection, symmetric chest wall rise. Absent: tenderness - Respiratory Respiratory exam: Present: other (bilateral breath sounds decreased). Absent: respiratory distress, wheezes - Cardiovascular Cardiovascular exam: Present: regular rate - Abdominal Exam Abdominal exam: Present: soft, tenderness Abdominal tenderness: Present: LUQ, LLQ, epigastrium - Expanded Lower Extremity Exam Ankle exam: Present: swelling (mild bilateral ankles swelling) - Back Exam Back exam: Present: normal inspection - Neurological Exam Neurological exam: Present: alert, oriented X3 - Psychiatric Psychiatric exam: Present: normal affect - Skin Skin exam: Present: warm, intact Course Vital Signs Temperature 99.8 F H 06/02/18 05:20 Pulse Rate 87 06/02/18 05:20 Respiratory Rate 20 06/02/18 05:20 Blood Pressure 146/74 06/02/18 05:20 O2 Sat by Pulse Oximetry 94 06/02/18 05:20 Temperature 99.8 F H 06/02/18 05:20 Pulse Rate 87 06/02/18 05:20 Respiratory Rate 20 06/02/18 05:20 Blood Pressure 146/74 06/02/18 05:20 O2 Sat by Pulse Oximetry 94 06/02/18 05:20 Oxygen Delivery Oxygen Delivery Nasal Cannula Medical Decision Making - MDM Narrative Medical decision making narrative: 77 year old female with history of COPD, CHF and diverticulosis presents with chest pain and abdominal pain for a week and worsening since yesterday, associate with shortness of breath, nausea, no vomiting. Pt is on antibiotics for diverticulitis from her primary care physician. Today is her 6 th day on antibiotics. Physical exam: afebrile, bilateral lung sounds are diminished, abdomen soft, epigastric, LUQ, and LLQ tender to palpation. Impression: chest pain, abdominal pain. Deferential diagnosis: CO, CHF, pneumonia, diverticulitis, Colitis, Pancretitis. CBC, CMP, Lipase, Troponin, EKG, Chest xray, abdomen CT ordered. Tranfer care to Robinson Santana CNP due to shift change. - Lab Data Result diagrams: 06/02/18 05:30 Lab Results 06/02/18 Range/Units 05:30 WBC 8.6 (4.3-11.1) K/mcL RBC 3.82 (3.82-4.97) M/mcL Hgb 11.3 L (11.5-15.4) g/dL Hct 35.1 L (35.3-44.9) % MCV 91.9 (83.0-100.0) fL MCH 29.6 (28.0-33.3) pg MCHC 32.2 (31.6-35.5) g/dL RDW 15.0 H (11.5-14.5) % Plt Count 116 L (140-400) K/mcL MPV 9.7 (9.4-12.4) fL Immature Gran % 0.7 (0-4) % Seg Neutrophils % 71.1 % Lymphocytes % 19.8 % Monocytes % 6.3 % Eosinophils % 1.6 % Basophils % 0.5 % Neutrophils # 6.1 (1.6-8.9) K/mcL Lymphocytes # 1.7 (0.6-4.6) K/mcL Monocytes # 0.5 (0.0-1.3) K/mcL Eosinophils # 0.1 (0.0-0.6) K/mcL Basophils # 0.0 (0.0-0.2) K/mcL
[2018-06-02 05:47] LABS: Basophils % 0.5 %; Eosinophils # 0.1 K/mcL (0.0-0.6); Eosinophils % 1.6 %; Hematocrit 35.1 % (35.3-44.9); Hemoglobin 11.3 g/dL (11.5-15.4); Immature Granulocytes % 0.7 % (0-4); Lymphocytes # 1.7 K/mcL (0.6-4.6); Lymphocytes % 19.8 %; Mean Corpuscular HGB Conc 32.2 g/dL (31.6-35.5); Mean Corpuscular Hemoglobin 29.6 pg (28.0-33.3); Mean Corpuscular Volume 91.9 fL (83.0-100.0); Mean Platelet Volume 9.7 fL (9.4-12.4); Monocytes # 0.5 K/mcL (0.0-1.3); Monocytes % 6.3 %; Neutrophils # 6.1 K/mcL (1.6-8.9); Platelet Count 116 K/mcL (140-400); Red Blood Count 3.82 M/mcL (3.82-4.97); Segmented Neutrophils % 71.1 %
--- NOTE | 2018-06-02 06:06 | Emergency Department Note ---
Disposition Clinical Impression: Chest pain Qualifiers: Chest pain type: unspecified Qualified Code(s): R07.9 - Chest pain, unspecified Abdominal pain Qualifiers: Abdominal location: upper abdomen, unspecified Qualified Code(s): R10.10 - Upper abdominal pain, unspecified Nausea and vomiting Qualifiers: Vomiting type: unspecified Vomiting Intractability: non-intractable Qualified Code(s): R11.2 - Nausea with vomiting, unspecified Disposition: Admitted As Inpatient Condition: Fair Referrals: NONE,PCP [Primary Care Provider] - Forms: ED Satisfaction Letter Time of Disposition: 07:27 General Adult HPI - General Chief complaint: ED Chest Pain Stated complaint: abd pain Time Seen by Provider: 06/02/18 05:18 Source: patient, EMS Mode of arrival: EMS Limitations: no limitations - History of Present Illness Location: chest, abdomen Pain Scale: 8 - Related Data Home Medications Medication Instructions Recorded Confirmed Albuterol Sulfate 2.5 mg PO TID 09/05/15 02/08/18 Albuterol Sulfate [Albuterol 2 puff IH Q4H PRN 09/05/15 02/08/18 Inhaler] Atorvastatin [Lipitor] 10 mg PO HS 09/05/15 02/08/18 Budesonide/Formoterol 160/4.5 2 puff IH BIDR 09/05/15 02/08/18 [Symbicort 160/4.5] Ergocalciferol (VITAMIN D2) 50,000 unit PO QWEEK 09/05/15 02/08/18 [Vitamin D2] Fenofibrate [Tricor] 54 mg PO DAILY 09/05/15 02/08/18 Gabapentin [Neurontin] 100 mg PO TID 09/05/15 02/08/18 Hydrocodone/Acetaminophen [[place] 1 tab PO Q6HR PRN 09/05/15 02/08/18 7.5-325 Tablet] Levothyroxine Sodium [Tirosint] 175 mcg PO DAILY 09/05/15 02/08/18 Metoprolol [Lopressor] 50 mg PO BID 09/05/15 02/08/18 Nitroglycerin [Nitrostat] 0.4 mg SL Q5-10MIN PRN 09/05/15 02/08/18 Pantoprazole Sodium [Protonix] 40 mg PO DAILY 09/05/15 02/08/18 Primidone [Mysoline] 50 mg PO HS 09/05/15 02/08/18 Ranitidine HCl [Zantac] 150 mg PO BID 09/05/15 02/08/18 Sertraline HCl [Zoloft] 100 mg PO BID 09/05/15 02/08/18 glipiZIDE [Glucotrol] 2.5 mg PO DAILY 09/05/15 02/08/18 hydrOXYzine HCl [Hydroxyzine HCl] 25 mg PO TID 09/05/15 02/08/18 Dicyclomine [Bentyl] 10 mg PO QID PRN 08/07/16 02/08/18 Oxygen 2 l .ROUTE AD 08/07/16 02/08/18 Cholestyramine 4 gm PO BIDAC 02/08/18 02/08/18 Previous Rx's Medication Instructions Recorded Furosemide [Lasix] 40 mg PO DAILY #30 tablet 08/09/16 Digoxin [Lanoxin] 0.125 mg PO DAILY #30 tablet 02/16/18 Diltiazem CD (24hr) [Cardizem CD] 180 mg PO BID #60 cap.er.24h 02/16/18 Isosorbide MONOnitrate (24 HR) 60 mg PO DAILY #30 tab.er.24h 02/24/18 [Imdur] Potassium Chloride [K-Tab ER] 20 meq PO DAILY #0 02/24/18 Warfarin [Coumadin] 1 mg PO 1800 #30 tablet 02/24/18 Warfarin [Coumadin] 2.5 mg PO DAILY #0 02/24/18 Allergies Allergy/AdvReac Type Severity Reaction Status Date / Time aspirin AdvReac Anaphylaxis Verified 09/04/15 20:11 metoclopramide [From Reglan] AdvReac See Verified 09/04/15 20:11 Comments prednisone AdvReac See Verified 09/04/15 20:11 Comments Constitutional: Denies: fever Eyes: Denies: eye pain ENT ED: Denies: ear pain Cardiovascular: Reports: chest pain Respiratory: Reports: dyspnea. Denies: cough Gastrointestinal: Reports: abdominal pain, nausea, diarrhea. Denies: vomiting Genitourinary: Denies: urgency Musculoskeletal: Denies: back pain Integumentary: Denies: rash Neurological: Denies: headache Psychiatric: Denies: anxiety Endocrine: Denies: fatigue Hematological/Lymphatic: Denies: easy bleeding Allergic/Immunologic: Denies: facial swelling Past Medical History - Past Medical History Medical history: Reports: COPD, diabetes, hypertension, other Surgical history: Reports: appendectomy, cholecystectomy, hysterectomy Psychiatric history: Reports: no psych history - Social History Smoking Status: Never smoker Smokeless Tobacco Status: No Alcohol use: Reports: none Drug use: Reports: none Physical Exam - General Limitations: no limitations General appearance: alert Course Course Narrative: 0600: I have assumed care of this patient from Ruiz Chaudhry CNP due to mid-level shift change. Please see Ruiz's documentation for care performed prior to my arrival. Briefly, this is a 77-year-old female that presented for evaluation of upper abdominal pain, shortness of breath, and nausea. This pain began one week ago began to migrate into her chest yesterday. She stated that the pain also began radiating to left arm. She denies any vomiting or fever. She is currently on day 6 of antibiotic therapy for diverticulitis as diagnosed by her primary care provider. She states that although her diarrhea has improved, her abdominal pain has worsened. Laboratory and radiology workup pending at this time. - Consultations Consultation #1: I spoke with Dr. Spencer with gastroenterology. I have discussed the patient's complaints, symptoms, laboratory, and radiology results. He suggests the patient continue Cipro and Flagyl as she is currently taking as an outpatient. He does recommend that we admit to the hospitalist service with gastroenterology consult. He recommends obtaining an MRCP for further evaluation. Time: 07:20 Consultation #2: I spoke with the hospitalist senior treasury consultant, who has accepted the patient for admission to the hospitalist service with gastroenterology consultation. Time: 07:43 Vital Signs Temperature 99.8 F H 06/02/18 05:20 Pulse Rate 87 06/02/18 05:20 Respiratory Rate 20 06/02/18 05:20 Blood Pressure 146/74 06/02/18 05:20 O2 Sat by Pulse Oximetry 94 06/02/18 05:20 Temperature 99.8 F H 06/02/18 05:20 Pulse Rate 81 06/02/18 06:43 Respiratory Rate 16 06/02/18 06:43 Blood Pressure 129/76 06/02/18 06:43 O2 Sat by Pulse Oximetry 95 06/02/18 06:43 Oxygen Delivery Oxygen Delivery Nasal Cannula Medical Decision Making - MDM Narrative Medical decision making narrative: 0729: Aspirin withheld due to the patient's complaints of upper abdominal pain and CT imaging that shows the possibility of cholangitis which may require surgical intervention. - Medical Records Medical records reviewed: Yes I reviewed the patient's medical records. - Lab Data Lab results reviewed: Yes I reviewed the patient's lab results. Lab results narrative: Lab Results 06/02/18 06/02/18 06/02/18 Range/Units 05:30 05:30 05:30 WBC 8.6 (4.3-11.1) K/mcL RBC 3.82 (3.82-4.97) M/mcL Hgb 11.3 L (11.5-15.4) g/dL Hct 35.1 L (35.3-44.9) % MCV 91.9 (83.0-100.0) fL MCH 29.6 (28.0-33.3) pg MCHC 32.2 (31.6-35.5) g/dL RDW 15.0 H (11.5-14.5) % Plt Count 116 L (140-400) K/mcL MPV 9.7 (9.4-12.4) fL Immature Gran % 0.7 (0-4) % Seg Neutrophils % 71.1 % Lymphocytes % 19.8 % Monocytes % 6.3 % Eosinophils % 1.6 % Basophils % 0.5 % Neutrophils # 6.1 (1.6-8.9) K/mcL Lymphocytes # 1.7 (0.6-4.6) K/mcL Monocytes # 0.5 (0.0-1.3) K/mcL Eosinophils # 0.1 (0.0-0.6) K/mcL Basophils # 0.0 (0.0-0.2) K/mcL Sodium 138 (136-145) mEq/L Potassium 3.4 L (3.5-5.1) mEq/L Chloride 102 (98-107) mEq/L Carbon Dioxide 24 (23-29) mEq/L BUN 4 L (8-23) mg/dL Creatinine 0.51 L (0.60-1.20) mg/dL Est GFR ( Amer) > 60 (> 60) Est GFR (Non-Af Amer) > 60 (> 60) BUN/Creatinine Ratio 8 (6-26) Glucose 217 H (70-105) mg/dL Calculated Osmolality 289 (280-300) Calcium 8.6 (8.6-10.3) mg/dL Total Bilirubin 0.5 (0.3-1.0) mg/dL AST 14 (13-39) Units/L ALT 10 (7-52) Units/L Alkaline Phosphatase 54 (34-104) Units/L Troponin I < 0.03 (< 0.04) ng/mL B-Natriuretic Peptide 212 H (Less than 100) pg/mL Serum Total Protein 6.4 (6.4-8.9) g/dL Albumin 4.0 (3.5-5.7) g/dL Globulin 2.4 (2.4-3.5) g/dL Albumin/Globulin Ratio 1.7 (1.1-2.2) Lipase < 3 L (11-82) Units/L Urine Color (Yellow) Urine Clarity (Clear) Urine pH (5.0-8.0) pH Units Ur Specific [place] (1.010-1.025) Urine Protein (Neg-Trace) mg/dL Urine Glucose (UA) (Normal) mg/dL Urine Ketones (Negative) mg/dL Urine Blood (Negative) Urine Nitrite (Negative) Urine Bilirubin (Negative) Urine Urobilinogen (Normal) mg/dL Ur Leukocyte Esterase (Negative) Ur Culture Indicated? (NO) 06/02/18 Range/Units 06:05 WBC (4.3-11.1) K/mcL RBC (3.82-4.97) M/mcL Hgb (11.5-15.4) g/dL Hct (35.3-44.9) % MCV (83.0-100.0) fL MCH (28.0-33.3) pg MCHC (31.6-35.5) g/dL RDW (11.5-14.5) % Plt Count (140-400) K/mcL MPV (9.4-12.4) fL Immature Gran % (0-4) % Seg Neutrophils % % Lymphocytes % % Monocytes % % Eosinophils % % Basophils % % Neutrophils # (1.6-8.9) K/mcL Lymphocytes # (0.6-4.6) K/mcL Monocytes # (0.0-1.3) K/mcL Eosinophils # (0.0-0.6) K/mcL Basophils # (0.0-0.2) K/mcL Sodium (136-145) mEq/L Potassium (3.5-5.1) mEq/L Chloride (98-107) mEq/L Carbon Dioxide (23-29) mEq/L BUN (8-23) mg/dL Creatinine (0.60-1.20) mg/dL Est GFR ( Amer) (> 60) Est GFR (Non-Af Amer) (> 60) BUN/Creatinine Ratio (6-26) Glucose (70-105) mg/dL Calculated Osmolality (280-300) Calcium (8.6-10.3) mg/dL Total Bilirubin (0.3-1.0) mg/dL AST (13-39) Units/L ALT (7-52) Units/L Alkaline Phosphatase (34-104) Units/L Troponin I (< 0.04) ng/mL B-Natriuretic Peptide (Less than 100) pg/mL Serum Total Protein (6.4-8.9) g/dL Albumin (3.5-5.7) g/dL Globulin (2.4-3.5) g/dL Albumin/Globulin Ratio (1.1-2.2) Lipase (11-82) Units/L Urine Color Yellow (Yellow) Urine Clarity Clear (Clear) Urine pH 5.5 (5.0-8.0) pH Units Ur Specific [place] 1.019 (1.010-1.025) Urine Protein Negative (Neg-Trace) mg/dL Urine Glucose (UA) Normal (Normal) mg/dL Urine Ketones Negative (Negative) mg/dL Urine Blood Negative (Negative) Urine Nitrite Negative (Negative) Urine Bilirubin Negative (Negative) Urine Urobilinogen Normal (Normal) mg/dL Ur Leukocyte Esterase Negative (Negative) Ur Culture Indicated? NO (NO) Result diagrams: 06/02/18 05:30 06/02/18 05:30 Lab Results 06/02/18 06/02/18 06/02/18 Range/Units 05:30 05:30 05:30 WBC 8.6 (4.3-11.1) K/mcL RBC 3.82 (3.82-4.97) M/mcL Hgb 11.3 L (11.5-15.4) g/dL Hct 35.1 L (35.3-44.9) % MCV 91.9 (83.0-100.0) fL MCH 29.6 (28.0-33.3) pg MCHC 32.2 (31.6-35.5) g/dL RDW 15.0 H (11.5-14.5) % Plt Count 116 L (140-400) K/mcL MPV 9.7 (9.4-12.4) fL Immature Gran % 0.7 (0-4) % Seg Neutrophils % 71.1 % Lymphocytes % 19.8 % Monocytes % 6.3 % Eosinophils % 1.6 % Basophils % 0.5 % Neutrophils # 6.1 (1.6-8.9) K/mcL Lymphocytes # 1.7 (0.6-4.6) K/mcL Monocytes # 0.5 (0.0-1.3) K/mcL Eosinophils # 0.1 (0.0-0.6) K/mcL Basophils # 0.0 (0.0-0.2) K/mcL Sodium 138 (136-145) mEq/L Potassium 3.4 L (3.5-5.1) mEq/L Chloride 102 (98-107) mEq/L Carbon Dioxide 24 (23-29) mEq/L BUN 4 L (8-23) mg/dL Creatinine 0.51 L (0.60-1.20) mg/dL Est GFR ( Amer) > 60 (> 60) Est GFR (Non-Af Amer) > 60 (> 60) BUN/Creatinine Ratio 8 (6-26) Glucose 217 H (70-105) mg/dL Calculated Osmolality 289 (280-300) Calcium 8.6 (8.6-10.3) mg/dL Total Bilirubin 0.5 (0.3-1.0) mg/dL AST 14 (13-39) Units/L ALT 10 (7-52) Units/L Alkaline Phosphatase 54 (34-104) Units/L Troponin I < 0.03 (< 0.04) ng/mL B-Natriuretic Peptide 212 H (Less than 100) pg/mL Serum Total Protein 6.4 (6.4-8.9) g/dL Albumin 4.0 (3.5-5.7) g/dL Globulin 2.4 (2.4-3.5) g/dL Albumin/Globulin Ratio 1.7 (1.1-2.2) Lipase < 3 L (11-82) Units/L Urine Color (Yellow) Urine Clarity (Clear) Urine pH (5.0-8.0) pH Units Ur Specific [place] (1.010-1.025) Urine Protein (Neg-Trace) mg/dL Urine Glucose (UA) (Normal) mg/dL Urine Ketones (Negative) mg/dL Urine Blood (Negative) Urine Nitrite (Negative) Urine Bilirubin (Negative) Urine Urobilinogen (Normal) mg/dL Ur Leukocyte Esterase (Negative) Ur Culture Indicated? (NO) 06/02/18 Range/Units 06:05 WBC (4.3-11.1) K/mcL RBC (3.82-4.97) M/mcL Hgb (11.5-15.4) g/dL Hct (35.3-44.9) % MCV (83.0-100.0) fL MCH (28.0-33.3) pg MCHC (31.6-35.5) g/dL RDW (11.5-14.5) % Plt Count (140-400) K/mcL MPV (9.4-12.4) fL Immature Gran % (0-4) % Seg Neutrophils % % Lymphocytes % % Monocytes % % Eosinophils % % Basophils % % Neutrophils # (1.6-8.9) K/mcL Lymphocytes # (0.6-4.6) K/mcL Monocytes # (0.0-1.3) K/mcL Eosinophils # (0.0-0.6) K/mcL Basophils # (0.0-0.2) K/mcL Sodium (136-145) mEq/L Potassium (3.5-5.1) mEq/L Chloride (98-107) mEq/L Carbon Dioxide (23-29) mEq/L BUN (8-23) mg/dL Creatinine (0.60-1.20) mg/dL Est GFR ( Amer) (> 60) Est GFR (Non-Af Amer) (> 60) BUN/Creatinine Ratio (6-26) Glucose (70-105) mg/dL Calculated Osmolality (280-300) Calcium (8.6-10.3) mg/dL Total Bilirubin (0.3-1.0) mg/dL AST (13-39) Units/L ALT (7-52) Units/L Alkaline Phosphatase (34-104) Units/L Troponin I (< 0.04) ng/mL B-Natriuretic Peptide (Less than 100) pg/mL Serum Total Protein (6.4-8.9) g/dL Albumin (3.5-5.7) g/dL Globulin (2.4-3.5) g/dL Albumin/Globulin Ratio (1.1-2.2) Lipase (11-82) Units/L Urine Color Yellow (Yellow) Urine Clarity Clear (Clear) Urine pH 5.5 (5.0-8.0) pH Units Ur Specific [place] 1.019 (1.010-1.025) Urine Protein Negative (Neg-Trace) mg/dL Urine Glucose (UA) Normal (Normal) mg/dL Urine Ketones Negative (Negative) mg/dL Urine Blood Negative (Negative) Urine Nitrite Negative (Negative) Urine Bilirubin Negative (Negative) Urine Urobilinogen Normal (Normal) mg/dL Ur Leukocyte Esterase Negative (Negative) Ur Culture Indicated? NO (NO) - Radiology Data Radiology results reviewed: Yes I reviewed the patient's radiology results. Chest X-Ray 06/02/18 05:18 IMPRESSION: No acute disease. D/ / Davi Reno MD / Davi Reno MD Interpreting Provider: Davi Reno MD Abdomen/Pelvis CT 06/02/18 05:21 IMPRESSION: 1. Panniculitis. 2. Fluid and fat stranding in the gallbladder fossa and adjacent to the common bile duct raises the possibility of cholangitis. 3. Focal low-density lesion in the spleen, not seen on the prior exam. Most typically these represent hemangiomas though a hemangioma though probably not develop this quickly. Six-month follow-up CT scan is recommended for further evaluation. 4. Diverticulosis without scan evidence for diverticulitis. D/ / Davi Reno MD / Davi Reno MD Interpreting Provider: Davi Reno MD - EKG Data EKG #1 EKG attestation: Yes I reviewed and interpreted this EKG. EKG results narrative: EKG showed atrial fibrillation at a rate of 72 bpm. QRS duration 86, QT/QTc interval 453/496. No ST elevation noted.
[2018-06-02 06:08] LABS: Troponin I < 0.03 ng/mL (< 0.04)
[2018-06-02 06:13] LABS: Alanine Aminotransferase 10 Units/L (7-52); Albumin/Globulin Ratio 1.7 (1.1-2.2); Alkaline Phosphatase 54 Units/L (34-104); Aspartate Amino Transferase 14 Units/L (13-39); BUN/Creatinine Ratio 8 (6-26); Bilirubin,Total 0.5 mg/dL (0.3-1.0); Blood Urea Nitrogen 4 mg/dL (8-23); Calcium 8.6 mg/dL (8.6-10.3); Carbon Dioxide 24 mEq/L (23-29); Chloride 102 mEq/L (98-107); Globulin 2.4 g/dL (2.4-3.5); Glucose 217 mg/dL (70-105); Lipase < 3 Units/L (11-82); Osmolality,Calculated 289 (280-300); Potassium 3.4 mEq/L (3.5-5.1); Sodium 138 mEq/L (136-145); Total Protein 6.4 g/dL (6.4-8.9); eGFR For Non-African Americans > 60 (> 60)
[2018-06-02 06:18] LABS: Bilirubin,Urine Negative (Negative); Blood,Urine Negative (Negative); Clarity,Urine Clear (Clear); Color,Urine Yellow (Yellow); Glucose,Urine (UA) Normal (Normal); Ketones,Urine Negative (Negative); Leukocyte Esterase,Urine Negative (Negative); Nitrite,Urine Negative (Negative); PH,Urine 5.5 pH Units (5.0-8.0); Protein,Urine Negative (Neg-Trace); Specific Gravity,Urine 1.019 (1.010-1.025); Urobilinogen,Urine Normal (Normal)
[2018-06-02] MEDS ORDERED: *HR* HYDROcodone/Acet 5/325 mg TABLET PO ONE (06:30)
[2018-06-02] MEDS ORDERED: Ondansetron ODT 4 MG TAB.RAPDIS SL ONE (06:30)
[2018-06-02] MEDS ORDERED: *HR* FentaNYL (PF) 100 MCG/2 ML VIAL IVP ONE ×2 (06:37→19:14)
[2018-06-02] MEDS ORDERED: Ondansetron 4 MG/2 ML VIAL IVP ONE (06:37)
--- NOTE | 2018-06-02 06:41 | Emergency Department Note ---
Disposition Clinical Impression: Chest pain, Abdominal pain Disposition: Still a Patient Condition: Fair Forms: ED Satisfaction Letter General Adult HPI - General Chief complaint: ED Chest Pain Stated complaint: abd pain Time Seen by Provider: 06/02/18 05:18 Source: patient, EMS Mode of arrival: EMS Limitations: no limitations - History of Present Illness Location: chest, abdomen Pain Scale: 8 - Related Data Home Medications Medication Instructions Recorded Confirmed Albuterol Sulfate 2.5 mg PO TID 09/05/15 02/08/18 Albuterol Sulfate [Albuterol 2 puff IH Q4H PRN 09/05/15 02/08/18 Inhaler] Atorvastatin [Lipitor] 10 mg PO HS 09/05/15 02/08/18 Budesonide/Formoterol 160/4.5 2 puff IH BIDR 09/05/15 02/08/18 [Symbicort 160/4.5] Ergocalciferol (VITAMIN D2) 50,000 unit PO QWEEK 09/05/15 02/08/18 [Vitamin D2] Fenofibrate [Tricor] 54 mg PO DAILY 09/05/15 02/08/18 Gabapentin [Neurontin] 100 mg PO TID 09/05/15 02/08/18 Hydrocodone/Acetaminophen [[place] 1 tab PO Q6HR PRN 09/05/15 02/08/18 7.5-325 Tablet] Levothyroxine Sodium [Tirosint] 175 mcg PO DAILY 09/05/15 02/08/18 Metoprolol [Lopressor] 50 mg PO BID 09/05/15 02/08/18 Nitroglycerin [Nitrostat] 0.4 mg SL Q5-10MIN PRN 09/05/15 02/08/18 Pantoprazole Sodium [Protonix] 40 mg PO DAILY 09/05/15 02/08/18 Primidone [Mysoline] 50 mg PO HS 09/05/15 02/08/18 Ranitidine HCl [Zantac] 150 mg PO BID 09/05/15 02/08/18 Sertraline HCl [Zoloft] 100 mg PO BID 09/05/15 02/08/18 glipiZIDE [Glucotrol] 2.5 mg PO DAILY 09/05/15 02/08/18 hydrOXYzine HCl [Hydroxyzine HCl] 25 mg PO TID 09/05/15 02/08/18 Dicyclomine [Bentyl] 10 mg PO QID PRN 08/07/16 02/08/18 Oxygen 2 l .ROUTE AD 08/07/16 02/08/18 Cholestyramine 4 gm PO BIDAC 02/08/18 02/08/18 Previous Rx's Medication Instructions Recorded Furosemide [Lasix] 40 mg PO DAILY #30 tablet 08/09/16 Digoxin [Lanoxin] 0.125 mg PO DAILY #30 tablet 02/16/18 Diltiazem CD (24hr) [Cardizem CD] 180 mg PO BID #60 cap.er.24h 02/16/18 Isosorbide MONOnitrate (24 HR) 60 mg PO DAILY #30 tab.er.24h 02/24/18 [Imdur] Potassium Chloride [K-Tab ER] 20 meq PO DAILY #0 02/24/18 Warfarin [Coumadin] 1 mg PO 1800 #30 tablet 02/24/18 Warfarin [Coumadin] 2.5 mg PO DAILY #0 02/24/18 Allergies Allergy/AdvReac Type Severity Reaction Status Date / Time aspirin AdvReac Anaphylaxis Verified 09/04/15 20:11 metoclopramide [From Reglan] AdvReac See Verified 09/04/15 20:11 Comments prednisone AdvReac See Verified 09/04/15 20:11 Comments Constitutional: Denies: fever Eyes: Denies: eye pain ENT ED: Denies: ear pain Cardiovascular: Reports: chest pain Respiratory: Reports: dyspnea. Denies: cough Gastrointestinal: Reports: abdominal pain, nausea, diarrhea. Denies: vomiting Genitourinary: Denies: urgency Musculoskeletal: Denies: back pain Integumentary: Denies: rash Neurological: Denies: headache Psychiatric: Denies: anxiety Endocrine: Denies: fatigue Hematological/Lymphatic: Denies: easy bleeding Allergic/Immunologic: Denies: facial swelling Past Medical History - Past Medical History Medical history: Reports: COPD, diabetes, hypertension, other Surgical history: Reports: appendectomy, cholecystectomy, hysterectomy Psychiatric history: Reports: no psych history - Social History Smoking Status: Never smoker Smokeless Tobacco Status: No Alcohol use: Reports: none Drug use: Reports: none Physical Exam - General Limitations: no limitations General appearance: alert Course Vital Signs Temperature 99.8 F H 06/02/18 05:20 Pulse Rate 87 06/02/18 05:20 Respiratory Rate 20 06/02/18 05:20 Blood Pressure 146/74 06/02/18 05:20 O2 Sat by Pulse Oximetry 94 06/02/18 05:20 Temperature 99.8 F H 06/02/18 05:20 Pulse Rate 87 06/02/18 05:20 Respiratory Rate 20 06/02/18 05:20 Blood Pressure 146/74 06/02/18 05:20 O2 Sat by Pulse Oximetry 94 06/02/18 05:20 Oxygen Delivery Oxygen Delivery Nasal Cannula Medical Decision Making - Lab Data Result diagrams: 06/02/18 05:30 06/02/18 05:30 Lab Results 06/02/18 06/02/18 06/02/18 Range/Units 05:30 05:30 05:30 WBC 8.6 (4.3-11.1) K/mcL RBC 3.82 (3.82-4.97) M/mcL Hgb 11.3 L (11.5-15.4) g/dL Hct 35.1 L (35.3-44.9) % MCV 91.9 (83.0-100.0) fL MCH 29.6 (28.0-33.3) pg MCHC 32.2 (31.6-35.5) g/dL RDW 15.0 H (11.5-14.5) % Plt Count 116 L (140-400) K/mcL MPV 9.7 (9.4-12.4) fL Immature Gran % 0.7 (0-4) % Seg Neutrophils % 71.1 % Lymphocytes % 19.8 % Monocytes % 6.3 % Eosinophils % 1.6 % Basophils % 0.5 % Neutrophils # 6.1 (1.6-8.9) K/mcL Lymphocytes # 1.7 (0.6-4.6) K/mcL Monocytes # 0.5 (0.0-1.3) K/mcL Eosinophils # 0.1 (0.0-0.6) K/mcL Basophils # 0.0 (0.0-0.2) K/mcL Sodium 138 (136-145) mEq/L Potassium 3.4 L (3.5-5.1) mEq/L Chloride 102 (98-107) mEq/L Carbon Dioxide 24 (23-29) mEq/L BUN 4 L (8-23) mg/dL Creatinine 0.51 L (0.60-1.20) mg/dL Est GFR ( Amer) > 60 (> 60) Est GFR (Non-Af Amer) > 60 (> 60) BUN/Creatinine Ratio 8 (6-26) Glucose 217 H (70-105) mg/dL Calculated Osmolality 289 (280-300) Calcium 8.6 (8.6-10.3) mg/dL Total Bilirubin 0.5 (0.3-1.0) mg/dL AST 14 (13-39) Units/L ALT 10 (7-52) Units/L Alkaline Phosphatase 54 (34-104) Units/L Troponin I < 0.03 (< 0.04) ng/mL B-Natriuretic Peptide 212 H (Less than 100) pg/mL Serum Total Protein 6.4 (6.4-8.9) g/dL Albumin 4.0 (3.5-5.7) g/dL Globulin 2.4 (2.4-3.5) g/dL Albumin/Globulin Ratio 1.7 (1.1-2.2) Lipase < 3 L (11-82) Units/L Urine Color (Yellow) Urine Clarity (Clear) Urine pH (5.0-8.0) pH Units Ur Specific [place] (1.010-1.025) Urine Protein (Neg-Trace) mg/dL Urine Glucose (UA) (Normal) mg/dL Urine Ketones (Negative) mg/dL Urine Blood (Negative) Urine Nitrite (Negative) Urine Bilirubin (Negative) Urine Urobilinogen (Normal) mg/dL Ur Leukocyte Esterase (Negative) Ur Culture Indicated? (NO) 06/02/18 Range/Units 06:05 WBC (4.3-11.1) K/mcL RBC (3.82-4.97) M/mcL Hgb (11.5-15.4) g/dL Hct (35.3-44.9) % MCV (83.0-100.0) fL MCH (28.0-33.3) pg MCHC (31.6-35.5) g/dL RDW (11.5-14.5) % Plt Count (140-400) K/mcL MPV (9.4-12.4) fL Immature Gran % (0-4) % Seg Neutrophils % % Lymphocytes % % Monocytes % % Eosinophils % % Basophils % % Neutrophils # (1.6-8.9) K/mcL Lymphocytes # (0.6-4.6) K/mcL Monocytes # (0.0-1.3) K/mcL Eosinophils # (0.0-0.6) K/mcL Basophils # (0.0-0.2) K/mcL Sodium (136-145) mEq/L Potassium (3.5-5.1) mEq/L Chloride (98-107) mEq/L Carbon Dioxide (23-29) mEq/L BUN (8-23) mg/dL Creatinine (0.60-1.20) mg/dL Est GFR ( Amer) (> 60) Est GFR (Non-Af Amer) (> 60) BUN/Creatinine Ratio (6-26) Glucose (70-105) mg/dL Calculated Osmolality (280-300) Calcium (8.6-10.3) mg/dL Total Bilirubin (0.3-1.0) mg/dL AST (13-39) Units/L ALT (7-52) Units/L Alkaline Phosphatase (34-104) Units/L Troponin I (< 0.04) ng/mL B-Natriuretic Peptide (Less than 100) pg/mL Serum Total Protein (6.4-8.9) g/dL Albumin (3.5-5.7) g/dL Globulin (2.4-3.5) g/dL Albumin/Globulin Ratio (1.1-2.2) Lipase (11-82) Units/L Urine Color Yellow (Yellow) Urine Clarity Clear (Clear) Urine pH 5.5 (5.0-8.0) pH Units Ur Specific [place] 1.019 (1.010-1.025) Urine Protein Negative (Neg-Trace) mg/dL Urine Glucose (UA) Normal (Normal) mg/dL Urine Ketones Negative (Negative) mg/dL Urine Blood Negative (Negative) Urine Nitrite Negative (Negative) Urine Bilirubin Negative (Negative) Urine Urobilinogen Normal (Normal) mg/dL Ur Leukocyte Esterase Negative (Negative) Ur Culture Indicated? NO (NO) Critical Care Time Critical Care Time: Yes Total Critical Care Time: 35 Attestation: CC time of 35 min spent in medical management for possible cholangitis based on CT and consultation with Gen surgery. Attestation Statement - Attestation Attestation: I have personally performed a face to face evaluation on this patient. I have reviewed and agree with the care plan. History and Exam by me shows: Patient was seen by the PA. I also evaluated the patient and agree with the above findings and exam as mentioned. She mostly is having pain in the epigastric region and some in the right upper quadrant and left side of her abdomen. We did a CT scan. This shows some haziness in the gallbladder fossa. They were concerned about possible cholangitis. Currently she has no fevers has no leukocytosis and no jaundice. Incidental note is that she may have some panniculitis involving the right side of her abdomen. She has no pain on palpation on physical exam in this region. She does have pain no where the cholangitis could be. We will consult with GI surgery. No LFT elevation. This could be an incidental finding but feel that she would need to be admitted for evaluation or possibly transferred based on bed availability for this.
[2018-06-02] MEDS ORDERED: Naloxone 0.4 MG/ML INJ IVP PRN (07:56)
[2018-06-02] MEDS ORDERED: *HR* Heparin 5,000 UNIT/ML VIAL SQ SCH (08:00)
[2018-06-02] MEDS ORDERED: 0.9 % Sodium Chloride 1,000 ML IVC SCH (08:00)
--- NOTE | 2018-06-02 08:06 | Internal Med History&Physical ---
Date of Encounter: 06/02/18 Time of Encounter: 07:45 Internal Medicine - H&P: HPI Chief complaint: Abdominal pain Admitted From: Home Plans for Post Hospital Care: Home History of present illness: Ms. Trinidad is a 77 year old female history of atrial fibrillation on Coumadin, COPD on home oxygen, CHF and diverticulosis presented to the emergency department with abdominal pain. As per patient her pain started about up 1 week ago and was originally located in the left lower quadrant, intermittent, nonradiating, crampy in nature and 5 out of 10 on severity. Her abdominal pain was associated with nausea, vomiting and nonbloody diarrhea. She visited her primary care physician office and was prescribed ciprofloxacin and Flagyl last week and reports that her diarrhea and nausea improved until the day before admission when she developed epigastric and right upper quadrant pain. She describes her pain as crampy with intermittent sharp pain especially in her epigastric area. Reports that her epigastric area is tender to palpation and has developed 5 episodes of bilious nonbloody vomiting since her epigastric and right upper quadrant pain started. She cannot recall alleviating or aggravating factors. She has never had pain like this before. patient denies fever, chills, dysuria, palpitations, chest pain, SOB, prolonged immobilization, heat or cold intolerance, leg swelling, calf tenderness. While in the ED CT abdomen and pelvis was performed which shows panniculitis, and fat stranding in the gallbladder fossa and adjacent to the common bile duct raises the possibility of cholangitis. GI and surgery were consulted by the ED physician and recommended to continue with IV antibiotics until further recommendations are given. She was endorsed for admission for further management of above. Past Med Surg Social Fam HX - Past Medical History Medical history: COPD, diabetes, hypertension, other Additional medical history: DIVERTICULITIS Psychiatric history: no psych history - Past Surgical History Surgical History: appendectomy, cholecystectomy, hysterectomy Additional surgical history: TONSILECTOMY - Social History Smoking Status: Never smoker Smokeless Tobacco Status: No Alcohol use: none Drug use: none - Family History Father Adopted: No Family Member Ethnicity: Non- Living Status: Hx Family Cardiac Disorders: Yes ([place]) Hx Family Respiratory Disorders: Yes (Emphysema) Hx Family Cancer: Yes Hx Family GI Disorders: No Hx Family Endocrine Disorder: Yes (DM) Hx Family Neuromuscular Disorders: No Hx Family Neurologic Disorders: No Hx Family HEENT Disorders: No Hx Family Autoimmune Disorders: No Internal Medicine - H&P: Meds Albuterol Sulfate [Albuterol Inhaler] 2 puff IH Q4H PRN 09/05/15 [History] Budesonide/Formoterol 160/4.5 [Symbicort 160/4.5] 2 puff IH BIDR 09/05/15 [Histo ry] Fenofibrate [Tricor] 54 mg PO DAILY 09/05/15 [History] Gabapentin [Neurontin] 100 mg PO BID 09/05/15 [History] Metoprolol [Lopressor] 50 mg PO BID 09/05/15 [History] Nitroglycerin [Nitrostat] 0.4 mg SL Q5-10MIN PRN 09/05/15 [History] Pantoprazole Sodium [Protonix] 40 mg PO DAILY 09/05/15 [History] Primidone [Mysoline] 50 mg PO BID 09/05/15 [History] Ranitidine HCl [Zantac] 150 mg PO BID PRN 09/05/15 [History] hydrOXYzine HCl [Hydroxyzine HCl] 25 mg PO TID 09/05/15 [History] Dicyclomine [Bentyl] 10 mg PO QID PRN 08/07/16 [History] Oxygen 2 l .ROUTE AD 08/07/16 [History] Cholestyramine 4 gm PO BIDAC 02/08/18 [History] Digoxin [Lanoxin] 0.125 mg PO DAILY #30 tablet 02/16/18 [Rx] Diltiazem CD (24hr) [Cardizem CD] 180 mg PO BID #60 cap.er.24h 02/16/18 [Rx] Isosorbide MONOnitrate (24 HR) [Imdur] 60 mg PO DAILY #30 tab.er.24h 02/24/18 [Rx] Albuterol Neb [Proventil Neb] 2.5 mg IH Q4HR PRN 06/02/18 [History] Atorvastatin Calcium [Lipitor] 20 mg PO HS 06/02/18 [History] Cholecalciferol (Vitamin D3) [Vitamin D] 50,000 unit PO SA 06/02/18 [History] Ciprofloxacin [Cipro] 500 mg PO BID 06/02/18 [History] Furosemide [Lasix] 40 mg PO DAILY 06/02/18 [History] GlipiZIDE XL (24 HR) [Glucotrol XL] 2.5 mg PO DAILY 06/02/18 [History] HYDROcodone/Acet 7.5/325 mg [[place]aufman 7.5-325 mg] 1 tab PO Q6H PRN 06/02/18 [History] Levothyroxine Sodium 175 mcg PO DAILY 06/02/18 [History] Potassium Chloride [K-Tab ER] 20 meq PO BID 06/02/18 [History] Sertraline [Zoloft] 100 mg PO BID 06/02/18 [History] Warfarin [Coumadin] 2.5 mg PO AD 06/02/18 [History] metroNIDAZOLE [Flagyl] 500 mg PO BID 06/02/18 [History] Allergy/AdvReac Type Severity Reaction Status Date / Time aspirin Allergy Anaphylaxis Verified 06/02/18 10:03 metoclopramide [From Reglan] AdvReac See Verified 06/02/18 10:03 Comments prednisone AdvReac See Verified 06/02/18 10:03 Comments All Systems PM: review of systems was performed and is negative for pertinent findings except as documented above in the HPI. - Constitutional Vitals: Temp Pulse Resp BP Pulse Ox 99.8 F H 81 16 129/76 95 06/02/18 05:20 06/02/18 06:43 06/02/18 06:43 06/02/18 06:43 06/02/18 06:43 Exam: General: Patient is alert, oriented, no acute distress, obese Head: atraumatic, normocephalic, Eye: normal appearance, PERRL, no scleral icterus, no conjunctival injection ENT: mucous membranes moist, normal external ear exam Neck: normal inspection, trachea midline, full ROM, no carotid bruits Chest: normal inspection, symmetric chest rise Respiratory: Good respiratory effort. Bilateral breath sounds are clear without wheezing, crackles, or rhonchi. Cardiovascular: Irregular s1 and s2 No clicks, rubs, gallops, or murmors. Abdomen: Bowel sounds present normoactive x-4 quadrants. Abdomen is soft, nondistended. +ve Epigastric tenderness. Mild guarding of the epigastric area, No organomegaly noted, obese musculoskeletal: Spontaneously moving all extremities. no edema, no calf tenderness Skin: warm, dry, intact. Neuro: Alert and oriented x4. Sensation light touch intact. Cranial nerves 2-1 2 is intact. Not aphasic, rapid hand movements intact, [id number] intact, Psych: Patient's affect is normal Internal Med - H&P Results - Labs CBC & Chem 7: 06/02/18 05:30 06/02/18 05:30 Labs: Short CBC 06/02/18 Range/Units 05:30 WBC 8.6 (4.3-11.1) K/mcL Hgb 11.3 L (11.5-15.4) g/dL Hct 35.1 L (35.3-44.9) % Plt Count 116 L (140-400) K/mcL Neutrophils # 6.1 (1.6-8.9) K/mcL BMP 06/02/18 05:30 Sodium 138 Potassium 3.4 L Chloride 102 Carbon Dioxide 24 BUN 4 L Creatinine 0.51 L Glucose 217 H Calcium 8.6 Cardiac Enzymes 06/02/18 Range/Units 05:30 Troponin I < 0.03 (< 0.04) ng/mL Liver Function 06/02/18 Range/Units 05:30 Total Bilirubin 0.5 (0.3-1.0) mg/dL AST 14 (13-39) Units/L ALT 10 (7-52) Units/L Alkaline Phosphatase 54 (34-104) Units/L Albumin 4.0 (3.5-5.7) g/dL Urine 06/02/18 Range/Units 06:05 Urine Color Yellow (Yellow) Urine Clarity Clear (Clear) Urine pH 5.5 (5.0-8.0) pH Units Ur Specific [place] 1.019 (1.010-1.025) Urine Protein Negative (Neg-Trace) mg/dL Urine Glucose (UA) Normal (Normal) mg/dL - EKG Data -: EKG Interpreted by Myself (Atrial fibrilliation, repolarization abnormalitiy, prolonged QT 496) - Impressions ITS Impressions Chest X-Ray 06/02/18 05:18 IMPRESSION: No acute disease. D/ / Davi Reno MD / Davi Reno MD Interpreting Provider: Davi Reno MD Abdomen/Pelvis CT 06/02/18 05:21 IMPRESSION: 1. Panniculitis. 2. Fluid and fat stranding in the gallbladder fossa and adjacent to the common bile duct raises the possibility of cholangitis. 3. Focal low-density lesion in the spleen, not seen on the prior exam. Most typically these represent hemangiomas though a hemangioma though probably not develop this quickly. Six-month follow-up CT scan is recommended for further evaluation. 4. Diverticulosis without scan evidence for diverticulitis. D/ / Davi Reno MD / Davi Reno MD Interpreting Provider: Davi Reno MD - Assessment and plan (1) Abdominal pain Current Visit: Yes Status: Acute Assessment and plan: Patient with nausea, vomiting and right upper quadrant abdominal pain with CT scan suspicious for cholangitis. MRCP if not CI We will continue with IV Zosyn Gentle hydration GI and surgery were consulted in the emergency department will follow recommendations Blood cultures, lactic acid pain control Ct A/P 1. Panniculitis. 2. Fluid and fat stranding in the gallbladder fossa and adjacent to the common bile duct raises the possibility of cholangitis. 3. Focal low-density lesion in the spleen, not seen on the prior exam. Most typically these represent hemangiomas though a hemangioma though probably not develop this quickly. Six-month follow-up CT scan is recommended for further evaluation. 4. Diverticulosis without scan evidence for diverticulitis. Qualifiers: Abdominal location: upper abdomen, unspecified Qualified Code(s): R10.10 - Upper abdominal pain, unspecified (2) Panniculitis Current Visit: Yes Status: Acute Assessment and plan: Surgery was consulted in the ED follow recommendations We will continue with IV Zosyn Rest of the management as above (3) COPD (chronic obstructive pulmonary disease) Current Visit: Yes Status: Acute Assessment and plan: Not an acute exacerbation we will continue home medications Qualifiers: COPD type: unspecified COPD Qualified Code(s): J44.9 - Chronic obstructive pulmonary disease, unspecified (4) Atrial fibrillation Current Visit: Yes Status: Acute Assessment and plan: Continue home medications for rate control We will hold Coumadin for now adn followsurgery/GI recs chads vasc 5 as it is greater than 4 will start her on heparin drip Qualifiers: Atrial fibrillation type: chronic Qualified Code(s): I48.2 - Chronic atrial fibrillation (5) Hypokalemia Current Visit: Yes Status: Acute Assessment and plan: Replaced We will follow BMP in the morning (6) Bicytopenia Current Visit: Yes Status: Acute Assessment and plan: Chronic H&H at baseline Platelet count about the baseline We will continue to follow CBC (7) Prolonged QT interval Current Visit: Yes Status: Acute Assessment and plan: avoid QT prolonging medications follow serial EKGs tele monitoring (8) Morbidly obese Current Visit: Yes Status: Acute Assessment and plan: counseled nutrition consult once not NPO (9) DVT prophylaxis Current Visit: Yes Status: Acute Assessment and plan: on coumadin - on hold on heparin Drip - Time Spent With Patient Total time spent is greater than 50% in coordination of care (as documented) at patient's floor/unit and/or counseling patient:
[2018-06-02 08:21] LABS: INR 1.7; Prothrombin Time 18.8 Seconds (9.4-12.1)
[2018-06-02 08:40] LABS: Cholesterol 129 mg/dL (< 200); Triglycerides 156 mg/dL (< 150)
[2018-06-02 08:56] LABS: Chol/HDL Ratio 2.4 (0-4.9); HDL Cholesterol 53 mg/dL (40-59); LDL Cholesterol,Calculated 45 mg/dL (0-99)
[2018-06-02] MEDS ORDERED: OXYCODONE Oral CONC 10 MG/0.5 ML ORAL.SYG SL PRN (09:21)
--- NOTE | 2018-06-02 11:18 | Gastroenterology Consult Note ---
<RasmussenSacha Garber - Last Filed: 06/02/18 11:14> Date of Encounter: 06/02/18 Time of Encounter: 10:05 - Assessment and plan (1) Abdominal pain Current Visit: Yes Status: Acute Assessment and plan: CT A/P results below. Continue Zosyn. MRCP has been ordered. Dr. Spencer will review radiology results. Keep patient NPO for now. Abdomen/Pelvis CT 06/02/18 05:21 IMPRESSION: 1. Panniculitis. 2. Fluid and fat stranding in the gallbladder fossa and adjacent to the common bile duct raises the possibility of cholangitis. 3. Focal low-density lesion in the spleen, not seen on the prior exam. Most typically these represent hemangiomas though a hemangioma though probably not develop this quickly. Six-month follow-up CT scan is recommended for further evaluation. 4. Diverticulosis without scan evidence for diverticulitis. D/ / Davi Reno MD / Davi Reno MD Interpreting Provider: Davi Reno MD Qualifiers: Abdominal location: upper abdomen, unspecified Qualified Code(s): R10.10 - Upper abdominal pain, unspecified (2) Nausea and vomiting Current Visit: Yes Status: Acute Assessment and plan: Use antiemetics when necessary. Qualifiers: Vomiting type: unspecified Vomiting Intractability: non-intractable Qualified Code(s): R11.2 - Nausea with vomiting, unspecified (3) Morbid obesity Current Visit: No Status: Chronic - Time Spent With Patient Total time spent is greater than 50% in coordination of care (as documented) at patient's floor/unit and/or counseling patient: GI History of Present Illness - Data of Consult Patient: known to practice within the last 3 years Consult date: 06/02/18 Requesting Physician: Malia iSngletary MD - Consult Narrative Reason for consult: Abdominal pain, N/V/D, possible cholangitis History of present illness: Ms. Trinidad is a 77 year old female with PMHx of COPD, CHF, diverticulosis who presented to the ED with abdominal pain, chest pain, and diarrhea that started one week ago. She was evaluated by her PCP and started on antibiotics for diverticulitis. Diarrhea improved and had a normal BM yesterday. Her abdominal pain and chest pain worsened. She denies fever, chills, or vomiting. She is on day [address] A/P shows panniculitis, fluid and fat stranding in the gallbladder fossa and adjacent to the common bile duct raises the possibility of cholangitis, diverticulosis without diverticulitits, focal low-density lesion in the spleen not seen on the prior exam (possible hemangioma), six-month follow-up CT scan is recommended for further evaluation. MRCP has been ordered. Procedures: Esophageal manometry 02/28/2015 Dr. Spencer: Distal esophageal spasm, but no EGJ outflow obstruction. EGD 11/05/2014 Dr. Spencer: Benign-appearing esophageal stricture due to Schatzki ring, dilation successful, H. pylori negative. EGD 04/19/2012 Dr. Spencer: Gastroparesis s/o Botox injections. Colonoscopy 08/19/2011 Dr. Spencer: External and internal hemorrhoids. NSAIDs: None Anticoagulation: Coumadin Past Med Surg Social Fam HX - Past Medical History Medical history: COPD, diabetes, hypertension, other Additional medical history: DIVERTICULITIS Psychiatric history: no psych history - Past Surgical History Surgical History: appendectomy, cholecystectomy, hysterectomy Additional surgical history: TONSILECTOMY - Social History Smoking Status: Never smoker Smokeless Tobacco Status: No Alcohol use: none Drug use: none - Family History Father Adopted: No Family Member Ethnicity: Non- Living Status: Hx Family Cardiac Disorders: Yes ([place]) Hx Family Respiratory Disorders: Yes (Emphysema) Hx Family Cancer: Yes Hx Family GI Disorders: No Hx Family Endocrine Disorder: Yes (DM) Hx Family Neuromuscular Disorders: No Hx Family Neurologic Disorders: No Hx Family HEENT Disorders: No Hx Family Autoimmune Disorders: No - Gastrointestinal Gastrointestinal: Present: as per HPI - Constitutional Constitutional: as per HPI - EENT Eyes: as per HPI Ears: Present: as per HPI Nose, mouth and throat: Present: as per HPI - Cardiovascular Cardiovascular ROS: Present: as per HPI - Respiratory Respiratory IM: Present: as per HPI - Genitourinary Genitourinary: Absent: change in color, Urinary frequency - Neurological ROS Neurological GI: Present: as per HPI - Hematologic/Lymphatic Hematologic/Lymphatic pediatric: Present: as per HPI - Musculoskeletal Musculoskeletal ROS GI: Present: as per HPI - Integumentary Integumentary GI: Present: as per HPI - Psychiatric ROS Psychiatric GI: Present: as per HPI - Endocrine Endocrine IM: Present: as per HPI - Constitutional Vitals: Temp Pulse Resp BP Pulse Ox 98.6 F 89 15 110/73 93 06/02/18 10:12 06/02/18 10:12 06/02/18 10:12 06/02/18 10:12 06/02/18 10:12 General appearance: Present: cooperative, A&O X 3, no acute distress, answers questions appropriately - Head Head exam: Present: atraumatic, normocephalic - Eye Eye exam: Present: normal appearance, sclera anicteric - ENT ENT exam: Present: mucous membranes dry - Neck Neck exam general surgery: Present: normal inspection, trachea midline - Respiratory Respiratory exam: Present: decreased breath sounds, CTAB. Absent: rales, rhonchi, wheezes - Cardiovascular Cardiovascular exam: Present: RRR, +S1, +S2 - GI/Abdominal GI/Abdominal exam: Present: normal bowel sounds, soft, tenderness (epigastric and LLQ), no peritoneal signs. Absent: distended, firm, guarding - Rectal Rectal exam: Present: deferred - Extremities Exam Extremities exam: Present: warm - Neurological Exam Neurological exam: Present: no focal deficits - Psychiatric Psychiatric exam: Present: normal affect, normal mood - Skin Skin exam: Present: dry, intact, normal color, warm Results - Labs CBC & Chem 7: 06/02/18 05:30 06/02/18 05:30 Labs: Last Result Calcium 8.6 mg/dL (8.6-10.3) 06/02/18 05:30 Troponin I < 0.03 ng/mL (< 0.04) 06/02/18 05:30 Triglycerides 156 mg/dL (< 150) H 06/02/18 05:30 Entire Visit Hgb 11.3 g/dL (11.5-15.4) L 06/02/18 05:30 Hct 35.1 % (35.3-44.9) L 06/02/18 05:30 PT 18.8 Seconds (9.4-12.1) H 06/02/18 05:30 Total Bilirubin 0.5 mg/dL (0.3-1.0) 06/02/18 05:30 AST 14 Units/L (13-39) 06/02/18 05:30 ALT 10 Units/L (7-52) 06/02/18 05:30 Lipase < 3 Units/L (11-82) L 06/02/18 05:30 - ABG ABG results: PT/INR, D-dimer PT 18.8 Seconds (9.4-12.1) H 06/02/18 05:30 - Impressions Impressions Chest X-Ray 06/02/18 05:18 IMPRESSION: No acute disease. D/ / Davi Reno MD / Davi Reno MD Interpreting Provider: Davi Reno MD Abdomen/Pelvis CT 06/02/18 05:21 IMPRESSION: 1. Panniculitis. 2. Fluid and fat stranding in the gallbladder fossa and adjacent to the common bile duct raises the possibility of cholangitis. 3. Focal low-density lesion in the spleen, not seen on the prior exam. Most typically these represent hemangiomas though a hemangioma though probably not develop this quickly. Six-month follow-up CT scan is recommended for further evaluation. 4. Diverticulosis without scan evidence for diverticulitis. D/ / Davi Reno MD / Davi Reno MD Interpreting Provider: Davi Reno MD Consult Discharge Plan - Plan Referrals: NONE,PCP [Primary Care Provider] - <Chris Spencer - Last Filed: 06/02/18 19:13> Date of Encounter: 06/02/18 Time of Encounter: 15:00 - Time Spent With Patient Total time spent is greater than 50% in coordination of care (as documented) at patient's floor/unit and/or counseling patient: GI History of Present Illness - Data of Consult Requesting Physician: Malia Singletary MD - Consult Narrative History of present illness: Ms. Trinidad is a 77 year old female - Constitutional Vitals: Temp Pulse Resp BP Pulse Ox 98.6 F 89 15 110/73 93 06/02/18 10:12 06/02/18 10:12 06/02/18 10:12 06/02/18 10:12 06/02/18 10:12 Results - Labs CBC & Chem 7: 06/02/18 14:02 06/02/18 05:30 Labs: Last Result Calcium 8.6 mg/dL (8.6-10.3) 06/02/18 05:30 Troponin I < 0.03 ng/mL (< 0.04) 06/02/18 05:30 Triglycerides 156 mg/dL (< 150) H 06/02/18 05:30 Entire Visit Hgb 10.6 g/dL (11.5-15.4) L 06/02/18 14:02 Hct 32.6 % (35.3-44.9) L 06/02/18 14:02 PT 19.5 Seconds (9.4-12.1) H 06/02/18 14:02 Total Bilirubin 0.5 mg/dL (0.3-1.0) 06/02/18 05:30 AST 14 Units/L (13-39) 06/02/18 05:30 ALT 10 Units/L (7-52) 06/02/18 05:30 Lipase < 3 Units/L (11-82) L 06/02/18 05:30 - ABG ABG results: PT/INR, D-dimer PT 19.5 Seconds (9.4-12.1) H 06/02/18 14:02 - Impressions Impressions Chest X-Ray 06/02/18 05:18 IMPRESSION: No acute disease. D/ / Davi Reno MD / Davi Reno MD Interpreting Provider: Davi Reno MD Abdomen/Pelvis CT 06/02/18 05:21 IMPRESSION: 1. Panniculitis. 2. Fluid and fat stranding in the gallbladder fossa and adjacent to the common bile duct raises the possibility of cholangitis. 3. Focal low-density lesion in the spleen, not seen on the prior exam. Most typically these represent hemangiomas though a hemangioma though probably not develop this quickly. Six-month follow-up CT scan is recommended for further evaluation. 4. Diverticulosis without scan evidence for diverticulitis. D/ / Davi Reno MD / Davi Reno MD Interpreting Provider: Davi Reno MD Abdomen MRI 06/02/18 07:27 IMPRESSION: 1. Stable mild biliary duct dilation without choledocholithiasis. Biliary duct dilation is stable dating back to 09/04/2015. 2. Status post cholecystectomy. There is a trace amount of fluid within the gallbladder fossa of uncertain etiology. There is subcutaneous edema as well as fluid tracking within the right lateral abdominal wall musculature. Constellation of findings may be infectious or inflammatory in etiology. 3. Indeterminate splenic lesions with peripheral T2 hypointense signal in the larger one. Findings could be related to prior trauma and blood products. Findings are otherwise benign in the setting of no prior malignancy. 4. Mild hepatic steatosis. D/ / 06/02/2018 17:31:11 Beatriz Phipps MD / sharona Interpreting Provider: Beatriz Phipps MD - Attending Attestation I have personally performed a face to face evaluation on this patient. I have reviewed and agree with the care plan. History and Exam by me shows: Patient seen. Complaining of upper abdominal pain also midabdominal pain. On examination abdomen is benign. Assessment patient with abdominal pain with CT showing panniculitis of the right side. MRCP is negative for CBD obstruction LFTs are normal. Recommendation: EGD to make sure does not have any gastric etiology for ab dominal pain. If EGD negative then symptomatic treatment for panniculitis
[2018-06-02] MEDS: Piperacillin/Tazobactam 3.375 GM in 0.9 % Sodium Chloride Mini Bag 100 ML IVPB SCH ×2 (11:34→15:21)
[2018-06-02] MEDS ORDERED: *HR* Dextrose 50 % in Water (Syg) 50 ML SYRINGE IVP PRN (12:39)
[2018-06-02] MEDS ORDERED: D5% in Water 1,000 ML IVC PRN (12:39)
[2018-06-02] MEDS ORDERED: Dextrose Gel 15 GM/37.5 ML TUBE PO PRN ×2 (12:39)
[2018-06-02] MEDS ORDERED: Famotidine 20 MG TABLET PO PRN (12:58)
[2018-06-02] MEDS ORDERED: Nitroglycerin 0.4 MG TAB.SUBL SL PRN (12:58)
[2018-06-02] MEDS ORDERED: Pantoprazole 80 MG in 0.9 % Sodium Chloride 50 ML IVPB ONE (13:02)
[2018-06-02] MEDS ORDERED: *HR* Heparin 5,000 UNIT/ML VIAL IVP ONE ×2 (13:06→13:52)
[2018-06-02] MEDS ORDERED: *HR* Heparin 5,000 UNIT/ML VIAL IVP PRN ×4 (13:06→13:52)
[2018-06-02] MEDS ORDERED: Heparin 25,000 UNIT/500 ML D5W 25,000 UNIT/500 ML BAG IVC SCH (13:15)
[2018-06-02] MEDS ORDERED: *HR* LORazepam 2 MG/ML VIAL IVP ONE (13:27)
[2018-06-02 14:18] LABS: Mean Corpuscular Volume 91.1 fL (83.0-100.0)
[2018-06-02 14:20] LABS: Hematocrit 32.6 % (35.3-44.9); Hemoglobin 10.6 g/dL (11.5-15.4); Immature Platelets 2.5 % (1.1-6.1); Mean Corpuscular HGB Conc 32.5 g/dL (31.6-35.5); Mean Corpuscular Hemoglobin 29.6 pg (28.0-33.3); Mean Platelet Volume 9.8 fL (9.4-12.4); Red Blood Count 3.58 M/mcL (3.82-4.97); Red Cell Distribution Width 15.2 % (11.5-14.5)
[2018-06-02 14:23] LABS: Heparin anti-factor XA UFH 0.03 IU/mL (0.30-0.70); INR 1.7; Prothrombin Time 19.5 Seconds (9.4-12.1)
--- NOTE | 2018-06-02 14:31 | Event Note ---
Date of Encounter: 06/02/18 Time of Encounter: 14:28 Surgery consulted for Panniculitis which does not warrant a surgical intervention and therefore an event note is being placed. Pt with mild cellulitis noted in the right lower panus. Patient with significant intertrigo/candidiasis noted to the groin, mons-pubis, and inter-thigh areas. Recommend antifungal treatment per primary team and education regarding moisture reduction in folds. No surgical intervention indicated. Surgery will sign off.
[2018-06-02] MEDS: Heparin 25,000 UNIT/500 ML D5W 25,000 UNIT/500 ML BAG IVC SCH (14:40)
[2018-06-02] MEDS: hydrOXYzine pamoate 25 MG CAPSULE PO SCH ×2 (14:58→20:20)
[2018-06-02] MEDS: Nystatin POWDER 30 GM BOTTLE TP SCH ×2 (17:25→23:51)
[2018-06-02] MEDS: Miconazole 2% ointment 114 GM TUBE TP SCH ×2 (17:25→23:51)
[2018-06-02] MEDS: Cholestyramine 4 GM POWD.PACK PO SCH (17:39)
[2018-06-02] MEDS ORDERED: Insulin LISPRO 300 UNITS/3 ML VIAL SQ SCH (18:00)
[2018-06-02] MEDS ORDERED: *HR* Midazolam HCl 5 MG/5 ML VIAL IVP ONE ×2 (19:14→19:16)
[2018-06-02] MEDS ORDERED: Simethicone 40 MG/0.6 ML MLS IR ONE (19:14)
[2018-06-02] MEDS ORDERED: Tetracaine/Benzocaine/Butamben 1 SPRAY AEROSOL MM ONE (19:14)
[2018-06-02] MEDS ORDERED: *HR* FentaNYL (PF) 100 MCG/2 ML VIAL ONE (19:16)
[2018-06-02] MEDS: Primidone 50 MG TABLET PO SCH (20:20)
[2018-06-02] MEDS: Diltiazem CD (24hr) 180 MG CAPSULE PO SCH (20:20)
--- NOTE | 2018-06-02 21:02 | Electrocardiograph Report ---
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
[2018-06-02] MEDS: Budesonide/Formoterol 160/4.5 1 PUFF INH IH SCH (22:55)
[2018-06-03] MEDS: Piperacillin/Tazobactam 3.375 GM in 0.9 % Sodium Chloride Mini Bag 100 ML IVPB SCH ×3 (00:34→15:31)
[2018-06-03] MEDS: 0.9 % Sodium Chloride 1,000 ML IVC SCH ×2 (03:54→06:08)
[2018-06-03 04:03] LABS: Hemoglobin 10.9 g/dL (11.5-15.4); Mean Corpuscular Hemoglobin 29.1 pg (28.0-33.3); Monocytes % 5.4 %; Red Blood Count 3.74 M/mcL (3.82-4.97)
[2018-06-03 04:05] LABS: Basophils % 0.4 %; Eosinophils # 0.1 K/mcL (0.0-0.6); Eosinophils % 2.1 %; Hematocrit 34.6 % (35.3-44.9); Immature Granulocytes % 0.6 % (0-4); Immature Platelets 3.1 % (1.1-6.1); Lymphocytes % 15.1 %; Mean Corpuscular HGB Conc 31.5 g/dL (31.6-35.5); Mean Corpuscular Volume 92.5 fL (83.0-100.0); Mean Platelet Volume 9.9 fL (9.4-12.4); Monocytes # 0.4 K/mcL (0.0-1.3); Neutrophils # 5.2 K/mcL (1.6-8.9); Platelet Count 103 K/mcL (140-400); Red Cell Distribution Width 15.2 % (11.5-14.5); Segmented Neutrophils % 76.4 %
[2018-06-03 04:12] LABS: INR 1.7
[2018-06-03 04:15] LABS: Activated Partial Thrombo Time 84.6 Seconds (26.0-36.0)
[2018-06-03 04:23] LABS: Alanine Aminotransferase 10 Units/L (7-52); Albumin 3.7 g/dL (3.5-5.7); Albumin/Globulin Ratio 1.7 (1.1-2.2); Alkaline Phosphatase 49 Units/L (34-104); Aspartate Amino Transferase 13 Units/L (13-39); BUN/Creatinine Ratio 6 (6-26); Bilirubin,Total 0.5 mg/dL (0.3-1.0); Blood Urea Nitrogen 3 mg/dL (8-23); Calcium 8.2 mg/dL (8.6-10.3); Carbon Dioxide 26 mEq/L (23-29); Chloride 105 mEq/L (98-107); Globulin 2.2 g/dL (2.4-3.5); Glucose 197 mg/dL (70-105); Magnesium 1.6 mg/dL (1.6-2.6); Osmolality,Calculated 292 (280-300); Phosphorous 3.4 mg/dL (2.7-4.5); Potassium 3.4 mEq/L (3.5-5.1); Sodium 140 mEq/L (136-145); Total Protein 5.9 g/dL (6.4-8.9); eGFR For Non-African Americans > 60 (> 60)
[2018-06-03] MEDS: Budesonide/Formoterol 160/4.5 1 PUFF INH IH SCH ×2 (07:56→20:07)
[2018-06-03] MEDS: Heparin 25,000 UNIT/500 ML D5W 25,000 UNIT/500 ML BAG IVC SCH (08:35)
[2018-06-03] MEDS: *HR* Digoxin 0.125 MG TABLET PO SCH (09:14)
[2018-06-03] MEDS: Primidone 50 MG TABLET PO SCH ×2 (09:14→21:04)
[2018-06-03] MEDS: hydrOXYzine pamoate 25 MG CAPSULE PO SCH ×3 (09:14→21:04)
[2018-06-03] MEDS: Isosorbide MONOnitrate (24 HR) 60 MG TAB.ER.24H PO SCH (09:14)
[2018-06-03] MEDS: Fenofibrate 54 MG TABLET PO SCH (09:14)
[2018-06-03] MEDS: Furosemide 40 MG TABLET PO SCH (09:14)
[2018-06-03] MEDS: Diltiazem CD (24hr) 180 MG CAPSULE PO SCH ×2 (09:14→21:05)
[2018-06-03] MEDS: Insulin LISPRO 300 UNITS/3 ML VIAL SQ SCH ×3 (09:16→17:02)
[2018-06-03] MEDS: Cholestyramine 4 GM POWD.PACK PO SCH ×2 (09:17→15:33)
[2018-06-03] MEDS: Miconazole 2% ointment 114 GM TUBE TP SCH ×3 (09:22→21:09)
[2018-06-03] MEDS: Nystatin POWDER 30 GM BOTTLE TP SCH ×3 (09:22→21:09)
--- NOTE | 2018-06-03 14:06 | Internal Med Progress Note ---
Hospitalist Progress Note - Encounter Date of Encounter: 06/03/18 Time of Encounter: 13:58 - Subjective Interval History: Pt resting in bed. Still having intermittent RUQ and LLQ pain but overall have improved. No fever, chills, or night sweats. No N/V, diarrhea, or kassandra-colored stool. - Exam Vitals: Temp Pulse Resp BP Pulse Ox 98.2 F 71 19 143/79 96 06/03/18 10:44 06/03/18 10:44 06/03/18 10:44 06/03/18 10:44 06/03/18 10:44 Exam: General: Patient is alert, oriented, no acute distress, obese Head: atraumatic, normocephalic, Eye: normal appearance, PERRL, no scleral icterus, no conjunctival injection ENT: mucous membranes moist, normal external ear exam Neck: normal inspection, trachea midline, full ROM, no carotid bruits Chest: normal inspection, symmetric chest rise Respiratory: Good respiratory effort. Bilateral breath sounds are clear without wheezing, crackles, or rhonchi. Cardiovascular: Irregular s1 and s2 No clicks, rubs, gallops, or murmors. Abdomen: Bowel sounds present normoactive x-4 quadrants. Abdomen is soft, nondistended. +ve Epigastric tenderness. Mild guarding of the epigastric area, No organomegaly noted, obese musculoskeletal: Spontaneously moving all extremities. no edema, no calf tenderness Skin: warm, dry, intact. Neuro: Alert and oriented x4. Sensation light touch intact. Cranial nerves 2- 12 is intact. Not aphasic, rapid hand movements intact, [id number] intact, Psych: Patient's affect is normal - Assessment and Plan (1) Abdominal pain Current Visit: Yes Status: Acute Assessment and Plan: 77-year-old female presented with acute onset of abdominal pain. CT abdomen/pelvis initially revealed possible acute cholangitis. Patient was placed on broader spectrum antibiotics. GI consulted. Abdominal MRI is performed which revealed gallbladder fossa fluid collection, no stones in the co mmon bile duct. Incidental finding of a cystic-like lesion in the spleen. Patient underwent EGD on 06/02/2018, which revealed a small hiatal hernia, no acute esophageal or gastric pathologies. - Patient signs and symptoms are not consistent with acute cholangitis, patient had history of cholecystectomy, we will downgrade antibiotics. - Panniculitis was detected on CT/MRI, we will continue antibiotics coverage. - Extensive infection of Clare was noted on the pannus and the inguinal area continue topical antifungal agent. (2) Panniculitis Current Visit: Yes Status: Acute Assessment and Plan: We will continue with IV Zosyn, plan to switch to oral antibiotics tomorrow. Rest of the management as above (3) COPD (chronic obstructive pulmonary disease) Current Visit: Yes Status: Acute Assessment and Plan: Not an acute exacerbation we will continue home medications (4) Atrial fibrillation Current Visit: Yes Status: Acute Assessment and Plan: Continue home medications for rate control chads vasc 5 as it is greater than 4, was started on heparin drip and coumadin dc'ed for EGD 06/02/2018. GI had no plan for more scopes. DC heparin gtt and start coumadin today. (5) DVT prophylaxis Current Visit: Yes Status: Acute Assessment and Plan: on coumadin - on hold on heparin Drip (6) Hypokalemia Current Visit: Yes Status: Acute Assessment and Plan: Replaced We will follow BMP in the morning (7) Bicytopenia Current Visit: Yes Status: Acute Assessment and Plan: Chronic H&H at baseline Platelet count about the baseline We will continue to follow CBC (8) Prolonged QT interval Current Visit: Yes Status: Acute Assessment and Plan: avoid QT prolonging medications follow serial EKGs tele monitoring (9) Morbidly obese Current Visit: Yes Status: Acute Assessment and Plan: counseled nutrition consult once not NPO - Time Spent with Patient Total time spent is 30 mins, greater than 50% in coordination of care (as documented) at patient's floor/unit and/or counseling patient. Plan of Care Discussed with: patient Internal Medicine: Result - Labs CBC & Chem 7: 06/03/18 03:53 06/03/18 03:53 Labs: Short CBC 06/02/18 06/03/18 Range/Units 14:02 03:53 WBC 7.2 6.8 (4.3-11.1) K/mcL Hgb 10.6 L 10.9 L (11.5-15.4) g/dL Hct 32.6 L 34.6 L (35.3-44.9) % Plt Count 118 L 103 L (140-400) K/mcL Neutrophils # 5.2 (1.6-8.9) K/mcL BMP 06/03/18 03:53 Sodium 140 Potassium 3.4 L Chloride 105 Carbon Dioxide 26 BUN 3 L Creatinine 0.50 L Glucose 197 H Calcium 8.2 L Liver Function 06/03/18 Range/Units 03:53 Total Bilirubin 0.5 (0.3-1.0) mg/dL AST 13 (13-39) Units/L ALT 10 (7-52) Units/L Alkaline Phosphatase 49 (34-104) Units/L Albumin 3.7 (3.5-5.7) g/dL - ABG Interpretation ABG results: PT/INR, D-dimer PT 19.0 Seconds (9.4-12.1) H 06/03/18 03:53 - Impressions Impressions Abdomen MRI 06/02/18 07:27 IMPRESSION: 1. Stable mild biliary duct dilation without choledocholithiasis. Biliary duct dilation is stable dating back to 09/04/2015. 2. Status post cholecystectomy. There is a trace amount of fluid within the gallbladder fossa of uncertain etiology. There is subcutaneous edema as well as fluid tracking within the right lateral abdominal wall musculature. Constellation of findings may be infectious or inflammatory in etiology. 3. Indeterminate splenic lesions with peripheral T2 hypointense signal in the larger one. Findings could be related to prior trauma and blood products. Findings are otherwise benign in the setting of no prior malignancy. 4. Mild hepatic steatosis. D/ / 06/02/2018 17:31:11 Beatriz Phipps MD / sharona Interpreting Provider: Beatriz Phipps MD Consult Discharge Plan - Plan Referrals: NONE,PCP [Primary Care Provider] - (1) Abdominal pain Qualifiers: Abdominal location: upper abdomen, unspecified Qualified Code(s): R10.10 - Upper abdominal pain, unspecified (3) COPD (chronic obstructive pulmonary disease) Qualifiers: COPD type: unspecified COPD Qualified Code(s): J44.9 - Chronic obstructive pulmonary disease, unspecified (4) Atrial fibrillation Qualifiers: Atrial fibrillation type: chronic Qualified Code(s): I48.2 - Chronic atrial fibrillation
[2018-06-03] MEDS ORDERED: *HR* Warfarin 2.5 MG TABLET PO ONE (18:00)
[2018-06-03] MEDS ORDERED: Warfarin perPT PO PRN (18:00)
[2018-06-03] MEDS ORDERED: Insulin LISPRO 300 UNITS/3 ML VIAL SQ SCH (21:00)
[2018-06-04 04:54] LABS: Heparin anti-factor XA UFH 0.02 IU/mL (0.30-0.70); INR 1.6; Prothrombin Time 17.5 Seconds (9.4-12.1)
[2018-06-04 04:58] LABS: BUN/Creatinine Ratio 9 (6-26); Blood Urea Nitrogen 4 mg/dL (8-23); Calcium 8.2 mg/dL (8.6-10.3); Carbon Dioxide 26 mEq/L (23-29); Chloride 105 mEq/L (98-107); Glucose 195 mg/dL (70-105); Osmolality,Calculated 292 (280-300); Potassium 3.6 mEq/L (3.5-5.1); Sodium 140 mEq/L (136-145); eGFR For Non-African Americans > 60 (> 60)
[2018-06-04] MEDS: Cholestyramine 4 GM POWD.PACK PO SCH (07:48)
[2018-06-04] MEDS: Insulin LISPRO 300 UNITS/3 ML VIAL SQ SCH ×2 (07:50→13:02)
[2018-06-04] MEDS: Miconazole 2% ointment 114 GM TUBE TP SCH (09:56)
[2018-06-04] MEDS: Diltiazem CD (24hr) 180 MG CAPSULE PO SCH (09:57)
[2018-06-04] MEDS: *HR* Digoxin 0.125 MG TABLET PO SCH (09:57)
[2018-06-04] MEDS: Fenofibrate 54 MG TABLET PO SCH (09:57)
[2018-06-04] MEDS: Isosorbide MONOnitrate (24 HR) 60 MG TAB.ER.24H PO SCH (09:57)
[2018-06-04] MEDS: Primidone 50 MG TABLET PO SCH (09:57)
[2018-06-04] MEDS: hydrOXYzine pamoate 25 MG CAPSULE PO SCH (09:58)
[2018-06-04] MEDS: Nystatin POWDER 30 GM BOTTLE TP SCH (09:58)
[2018-06-04] MEDS: Furosemide 40 MG TABLET PO SCH (09:58)
[2018-06-04] MEDS: Budesonide/Formoterol 160/4.5 1 PUFF INH IH SCH (10:36)
--- NOTE | 2018-06-04 10:55 | Discharge Summary ---
- NOTES TO OUTPATIENT PROVIDER Notes to Outpatient Provider: f/u with coumadin clinic on Wednesday for INR and dose adjustment. f/u with PCP within a week. Orders not resulted at time of discharge: Pending orders 06/02/18 08:15 Culture,Blood [BC] Stat 06/03/18 06:00 EKG [ECG 12 lead ECG] [ECG] AM 0600 06/05/18 04:00 PT/INR [Prothrombin Time INR] [COAG] AM 0400 06/06/18 04:00 PT/INR [Prothrombin Time INR] [COAG] AM 0400 06/07/18 04:00 PT/INR [Prothrombin Time INR] [COAG] AM 0400 06/08/18 04:00 PT/INR [Prothrombin Time INR] [COAG] AM 0400 Date of Encounter: 06/04/18 Time of Encounter: 10:53 - Discharge Diagnosis (1) Abdominal pain Priority: Primary Status: Acute Qualifiers: Abdominal location: upper abdomen, unspecified Qualified Code(s): R10.10 - Upper abdominal pain, unspecified (2) Panniculitis Priority: Primary Status: Acute (3) COPD (chronic obstructive pulmonary disease) Priority: Secondary Status: Chronic Qualifiers: COPD type: unspecified COPD Qualified Code(s): J44.9 - Chronic obstructive pulmonary disease, unspecified (4) Atrial fibrillation Priority: Secondary Status: Chronic Qualifiers: Atrial fibrillation type: chronic Qualified Code(s): I48.2 - Chronic atrial fibrillation (5) DVT prophylaxis Priority: Primary Status: Acute (6) Hypokalemia Priority: Primary Status: Resolved (7) Bicytopenia Priority: Secondary Status: Chronic (8) Prolonged QT interval Priority: Secondary Status: Chronic (9) Morbidly obese Priority: Secondary Status: Chronic Hospital course: Ms. Trinidad is a 77-year-old female presented with acute onset of abdominal pain. CT abdomen/pelvis initially revealed possible acute cholangitis and abdominal wall panicullitis. Patient was placed on broader spectrum antibiotics. Abdominal MRI is performed which revealed gallbladder fossa fluid collection, no stones in the common bile duct, incidental finding of a cystic-like lesion in the spleen. GI consulted. Coumadin was temporarily held. Patient underwent EGD on 06/02/2018, which revealed a small hiatal hernia, no acute esophageal or gastric pathologies. Patient signs and symptoms are not consistent with acute cholangitis. Abx was downgraded to cover panicullitis only. Extensive skin infection of Clare was noted on the pannus and the inguinal area, topical antifungal agent was prescribed. Pt abdominal pain has improved with treatment. Skin infection has improved as well. coumadin was resumed. She will be discharged home today. She was instructed to continue oral abx for 5 more day, continue antifungal agent for yeast infection. F/u with coumadin clinic to monitor and adjust coumadin dose. F/u with PCP within a week. Discharge discussed with: patient, family Time spent discussing smoking cessation with patient: more than 10 minutes - Time Spent with Patient Total time spent providing and/or coordinating discharge services: Less than 30 minutes - Discharge Medications Prescriptions: Cephalexin [Keflex] 500 mg PO BID #10 capsule Nystatin POWDER [Nystop] 1 appl TP TID #1 bottle Home Medications: Albuterol Sulfate [Albuterol Inhaler] 2 puff IH Q4H PRN 09/05/15 [History] Budesonide/Formoterol 160/4.5 [Symbicort 160/4.5] 2 puff IH BIDR 09/05/15 [History] Fenofibrate [Tricor] 54 mg PO DAILY 09/05/15 [History] Metoprolol [Lopressor] 50 mg PO BID 09/05/15 [History] Nitroglycerin [Nitrostat] 0.4 mg SL Q5-10MIN PRN 09/05/15 [History] Pantoprazole Sodium [Protonix] 40 mg PO DAILY 09/05/15 [History] Primidone [Mysoline] 50 mg PO BID 09/05/15 [History] Ranitidine HCl [Zantac] 150 mg PO BID PRN 09/05/15 [History] hydrOXYzine HCl [Hydroxyzine HCl] 25 mg PO TID 09/05/15 [History] Dicyclomine [Bentyl] 10 mg PO QID PRN 08/07/16 [History] Oxygen 2 l .ROUTE AD 08/07/16 [History] Cholestyramine 4 gm PO BIDAC 02/08/18 [History] Digoxin [Lanoxin] 0.125 mg PO DAILY #30 tablet 02/16/18 [Rx] Diltiazem CD (24hr) [Cardizem CD] 180 mg PO BID #60 cap.er.24h 02/16/18 [Rx] Isosorbide MONOnitrate (24 HR) [Imdur] 60 mg PO DAILY #30 tab.er.24h 02/24/18 [Rx] Albuterol Neb [Proventil Neb] 2.5 mg IH Q4HR PRN 06/02/18 [History] Atorvastatin Calcium [Lipitor] 20 mg PO HS 06/02/18 [History] Cholecalciferol (Vitamin D3) [Vitamin D3] 50,000 unit PO SA 06/02/18 [History] Furosemide [Lasix] 40 mg PO DAILY 06/02/18 [History] GlipiZIDE XL (24 HR) [Glucotrol XL] 2.5 mg PO DAILY 06/02/18 [History] HYDROcodone/Acet 7.5/325 mg [[place] 7.5-325 mg] 1 tab PO Q6H PRN 06/02/18 [History] Levothyroxine Sodium 175 mcg PO DAILY 06/02/18 [History] Potassium Chloride [K-Tab ER] 20 meq PO BID 06/02/18 [History] Sertraline [Zoloft] 100 mg PO BID 06/02/18 [History] Warfarin [Coumadin] 2.5 mg PO AD 06/02/18 [History] Cephalexin [Keflex] 500 mg PO BID #10 capsule 06/04/18 [Rx] Nystatin POWDER [Nystop] 1 appl TP TID #1 bottle 06/04/18 [Rx] Allergies/Adverse Reactions: Allergy/AdvReac Type Severity Reaction Status Date / Time aspirin Allergy Anaphylaxis Verified 06/02/18 10:03 metoclopramide [From Reglan] AdvReac See Verified 06/02/18 10:03 Comments prednisone AdvReac See Verified 06/02/18 10:03 Comments Date of admission: 06/02/18 08:48 Primary care physician: PCP NONE Consults: 06/02/18 07:24 Consult to Gastroenterology [CONS] Stat Consulting Provider: [facility] [place] Reason for Consult: abd pain, N/V/D, possible cholangitis per CT read Time Notified: 07:25 Call Completed: Yes 06/02/18 11:05 Consult to [employer] [CONS] Routine Reason for SW Consult: Requests info about Living Will, DPOA. 06/02/18 13:03 Consult to Surgery [CONS] Stat Consulting Provider: [facility] Reason for Consult: panniculitis Time Notified: 13:04 Call Completed: Yes Anticipated date of discharge: 06/04/18 - Constitutional Vitals: Temp Pulse Resp BP Pulse Ox 98.8 F 86 16 139/71 97 06/04/18 06:43 06/04/18 06:43 06/04/18 10:37 06/04/18 06:43 06/04/18 10:37 General appearance: Present: cooperative, A&O X 3, answers questions appropriately Exam: General: Patient is alert, oriented, no acute distress, obese Head: atraumatic, normocephalic, Eye: normal appearance, PERRL, no scleral icterus, no conjunctival injection ENT: mucous membranes moist, normal external ear exam Neck: normal inspection, trachea midline, full ROM, no carotid bruits Chest: normal inspection, symmetric chest rise Respiratory: Good respiratory effort. Bilateral breath sounds are clear without wheezing, crackles, or rhonchi. Cardiovascular: Irregular s1 and s2 No clicks, rubs, gallops, or murmors. Abdomen: Bowel sounds present normoactive x-4 quadrants. Abdomen is soft, nondistended. +ve Epigastric tenderness. Mild guarding of the epigastric area, No organomegaly noted, obese musculoskeletal: Spontaneously moving all extremities. no edema, no calf tenderness Skin: warm, dry, intact. Neuro: Alert and oriented x4. Sensation light touch intact. Cranial nerves 2-12 is intact. Not aphasic, rapid hand movements intact, [id number] intact, Psych: Patient's affect is normal - Patient Status Disposition: Home, Self-Care Condition: Fair Functional capacity at discharge: independent ambulation Overall status at discharge: patient is progressing back to baseline - Discharge Instructions Follow Up With: NONE,PCP [Primary Care Provider] - - Diet and Activity Activity: increase activity as tolerated Diet: advance to your usual diet
[2018-06-04 12:48] VITALS: BP 136/77
[2018-06-04] MEDS ORDERED: Aminoglycoside Consult 1 EACH MC ONE (14:18)
== END 2018-06-04 14:19 | disposition home or self-care (01) | DRG 607 ==
LOC: 3ANU 05:14 → EMEROOARM 05:14 → 3ANU 09:14
PROVIDERS: ADMIT Internal Medicine; ATTEND Internal Medicine

== ENCOUNTER 2019-08-16 14:33 | Inpatient (IN) ==
[2019-08-16] MEDS ORDERED: Isovue-370 500 ML BOTTLE IVP ONE (15:47)
[2019-08-16] MEDS ORDERED: 0.9 % Sodium Chloride 1,000 ML IVC ONE (16:05)
[2019-08-16] MEDS ORDERED: *HR* OxyCODONE Immed Rel 5 MG TABLET PO STA (16:06)
[2019-08-16] MEDS ORDERED: Ondansetron 4 MG/2 ML VIAL IVP ONE (16:06)
[2019-08-16 16:14] LABS: Basophils % 0.5 %; Eosinophils # 0.1 K/mcL (0.0-0.6); Eosinophils % 1.2 %; Hematocrit 43.1 % (35.3-44.9); Immature Granulocytes % 0.7 % (0-4); Lymphocytes # 1.2 K/mcL (0.6-4.6); Mean Corpuscular HGB Conc 34.8 g/dL (31.6-35.5); Mean Platelet Volume 9.4 fL (9.4-12.4); Monocytes # 0.4 K/mcL (0.0-1.3); Monocytes % 4.8 %; Neutrophils # 6.8 K/mcL (1.6-8.9); Platelet Count 177 K/mcL (140-400); Red Blood Count 4.84 M/mcL (3.82-4.97); Red Cell Distribution Width 12.5 % (11.5-14.5); Segmented Neutrophils % 78.8 %; White Blood Count 8.6 K/mcL (4.3-11.1)
[2019-08-16 16:28] LABS: INR 5.3; Prothrombin Time 60.3 Seconds (9.4-12.1)
[2019-08-16 16:44] LABS: Alanine Aminotransferase 22 Units/L (7-52); Albumin 4.6 g/dL (3.5-5.7); Albumin/Globulin Ratio 1.5 (1.1-2.2); Alkaline Phosphatase 81 Units/L (34-104); Aspartate Amino Transferase 20 Units/L (13-39); BUN/Creatinine Ratio 12 (6-26); Bilirubin,Direct 0.1 mg/dL (0.0-0.2); Bilirubin,Indirect 0.5 mg/dL (0.0-1.0); Bilirubin,Total 0.6 mg/dL (0.3-1.0); Blood Urea Nitrogen 9 mg/dL (8-23); Carbon Dioxide 26 mEq/L (23-29); Chloride 95 mEq/L (98-107); Glucose 215 mg/dL (70-105); Lipase < 3 Units/L (11-82); Osmolality,Calculated 289 (280-300); Potassium 3.6 mEq/L (3.5-5.1); Sodium 137 mEq/L (136-145); Total Protein 7.6 g/dL (6.4-8.9); Troponin I < 0.03 ng/mL (< 0.04); eGFR For African Americans > 60 (> 60); eGFR For Non-African Americans > 60 (> 60)
[2019-08-16] MEDS ORDERED: 0.9 % Sodium Chloride 500 ML IVC ONE (17:59)
[2019-08-16] MEDS ORDERED: Naloxone 0.4 MG/ML INJ IVP PRN (20:29)
[2019-08-16] MEDS ORDERED: Dextrose Gel 15 GM/37.5 ML TUBE PO PRN ×2 (20:30)
[2019-08-16] MEDS ORDERED: *HR* Dextrose 50 % in Water (Syg) 50 ML SYRINGE IVP PRN (20:30)
[2019-08-16] MEDS ORDERED: D5% in Water 1,000 ML IVC PRN (20:30)
[2019-08-16] MEDS ORDERED: Nitroglycerin 0.4 MG TAB.SUBL SL PRN (20:35)
[2019-08-16] MEDS ORDERED: Albuterol 2.5 MG/3 ML NEBULIZER IH PRN (20:35)
[2019-08-16] MEDS ORDERED: Famotidine 20 MG TABLET PO PRN (20:35)
[2019-08-16] MEDS: Budesonide/Formoterol 160/4.5 1 PUFF INH IH SCH (22:05)
[2019-08-16] MEDS: *HR* HYDROcodone/Acet 7.5/325 mg TABLET PO PRN (22:10)
[2019-08-16] MEDS: hydrOXYzine pamoate 25 MG CAPSULE PO SCH (22:10)
[2019-08-16] MEDS: Primidone 50 MG TABLET PO SCH (22:10)
[2019-08-16] MEDS: Nystatin POWDER 30 GM BOTTLE TP SCH (22:10)
[2019-08-16] MEDS ORDERED: *HR* Phytonadione 5 MG TABLET PO ONE (22:21)
[2019-08-16] MEDS: MetroNIDAZOLE 500 MG/100 ML 500 MG/100 ML BAG IVPB SCH (22:43)
[2019-08-17 01:31] LABS: Bilirubin,Urine Negative (Negative); Blood,Urine Negative (Negative); Clarity,Urine Clear (Clear); Color,Urine Yellow (Yellow); Glucose,Urine (UA) Normal (Normal); Ketones,Urine Negative (Negative); Leukocyte Esterase,Urine Small (Negative); Nitrite,Urine Negative (Negative); PH,Urine 5.5 pH Units (5.0-8.0); Protein,Urine 30 mg/dL (Neg-Trace); Specific Gravity,Urine > 1.030 (1.010-1.025); Urobilinogen,Urine Normal (Normal)
[2019-08-17 01:33] LABS: Bacteria,Urine None Seen per hpf (None-Few); Hyaline Casts,Urine None Seen per lpf (None-Few); Squamous Epithelial Cell,Urine Many per lpf (None-Few); WBC,Urine 30-50 per hpf (0-3)
[2019-08-17] MEDS: *HR* HYDROcodone/Acet 7.5/325 mg TABLET PO PRN ×2 (04:58→18:53)
[2019-08-17 06:55] LABS: INR 5.3; Prothrombin Time 60.5 Seconds (9.4-12.1)
[2019-08-17 08:44] LABS: Hematocrit 37.7 % (35.3-44.9); Mean Corpuscular HGB Conc 33.7 g/dL (31.6-35.5); Mean Corpuscular Hemoglobin 30.8 pg (28.0-33.3); Mean Corpuscular Volume 91.3 fL (83.0-100.0); Mean Platelet Volume 9.2 fL (9.4-12.4); Platelet Count 128 K/mcL (140-400); Red Blood Count 4.13 M/mcL (3.82-4.97); Red Cell Distribution Width 12.7 % (11.5-14.5); White Blood Count 6.4 K/mcL (4.3-11.1)
[2019-08-17 08:45] LABS: Hemoglobin 12.7 g/dL (11.5-15.4)
[2019-08-17 09:06] LABS: BUN/Creatinine Ratio 10 (6-26); Blood Urea Nitrogen 7 mg/dL (8-23); Calcium 7.9 mg/dL (8.6-10.3); Carbon Dioxide 29 mEq/L (23-29); Chloride 99 mEq/L (98-107); Glucose 204 mg/dL (70-105); Osmolality,Calculated 294 (280-300); Potassium 3.8 mEq/L (3.5-5.1); Sodium 140 mEq/L (136-145); eGFR For African Americans > 60 (> 60); eGFR For Non-African Americans > 60 (> 60)
[2019-08-17] MEDS: Insulin LISPRO 300 UNITS/3 ML VIAL SQ SCH ×3 (09:29→17:32)
[2019-08-17] MEDS: MetroNIDAZOLE 500 MG/100 ML 500 MG/100 ML BAG IVPB SCH ×2 (09:31→17:08)
[2019-08-17] MEDS: Cyanocobalamin (B-12) 1,000 MCG TABLET PO SCH (09:31)
[2019-08-17] MEDS: *HR* Digoxin 0.125 MG TABLET PO SCH (09:32)
[2019-08-17] MEDS: Furosemide 40 MG TABLET PO SCH (09:32)
[2019-08-17] MEDS: Cholecalciferol (D-3) 1,000 UNIT (25MCG) TABLET PO SCH (09:32)
[2019-08-17 09:33] LABS: Adenovirus F 40/41 PCR Not detected (Not detect); Astrovirus PCR Not detected (Not detect); C.difficile Toxin A/B Gene PCR Not detected (Not detect); Campylobacter by PCR Not detected (Not detect); Cryptosporidium by PCR Not detected (Not detect); Cyclospora cayetanensis PCR Not detected (Not detect); E. coli O157 by PCR Not detected (Not detect); Entamoeba histolytica PCR Not detected (Not detect); Enteroaggregative E.coli(EAEC) Not detected (Not detect); Enteropathogenic E.coli(EPEC) Not detected (Not detect); Enterotoxigenic E.coli (ETEC) Not detected (Not detect); Giardia lamblia PCR Not detected (Not detect); Norovirus GI/GII PCR Not detected (Not detect); Plesiomonas shigelloides PCR Not detected (Not detect); Rotavirus A PCR Not detected (Not detect); Salmonella PCR Not detected (Not detect); Sapovirus PCR Not detected (Not detect); Shig/EnteroinvasiveE coli EIEC Not detected (Not detect); Shigalike tox-prod E coli STEC Not detected (Not detect); Vibrio PCR Not detected (Not detect); Vibrio cholerae PCR Not detected (Not detect); Yersinia enterocolitica PCR Not detected (Not detect)
[2019-08-17] MEDS: Isosorbide MONOnitrate (24 HR) 30 MG TAB.ER.24H PO SCH (09:33)
[2019-08-17] MEDS: hydrOXYzine pamoate 25 MG CAPSULE PO SCH ×3 (09:33→19:38)
[2019-08-17] MEDS: Primidone 50 MG TABLET PO SCH ×2 (09:39→19:39)
[2019-08-17] MEDS ORDERED: *HR* Phytonadione 10 MG/ML AMPUL SQ ONE (10:10)
[2019-08-17] MEDS: Budesonide/Formoterol 160/4.5 1 PUFF INH IH SCH ×2 (11:58→20:28)
[2019-08-17] MEDS: Nystatin POWDER 30 GM BOTTLE TP SCH ×3 (13:26→19:39)
[2019-08-17 16:09] LABS: INR 2.4; Prothrombin Time 27.4 Seconds (9.4-12.1)
[2019-08-18] MEDS: *HR* HYDROcodone/Acet 7.5/325 mg TABLET PO PRN ×3 (02:05→20:53)
[2019-08-18] MEDS: MetroNIDAZOLE 500 MG/100 ML 500 MG/100 ML BAG IVPB SCH ×3 (02:05→17:36)
[2019-08-18 07:23] LABS: Hematocrit 37.8 % (35.3-44.9); Hemoglobin 12.3 g/dL (11.5-15.4); Mean Corpuscular HGB Conc 32.5 g/dL (31.6-35.5); Mean Corpuscular Hemoglobin 30.8 pg (28.0-33.3); Mean Corpuscular Volume 94.7 fL (83.0-100.0); Mean Platelet Volume 9.1 fL (9.4-12.4); Platelet Count 114 K/mcL (140-400); Red Blood Count 3.99 M/mcL (3.82-4.97); Red Cell Distribution Width 12.4 % (11.5-14.5); White Blood Count 5.5 K/mcL (4.3-11.1)
[2019-08-18 07:27] LABS: INR 1.4; Prothrombin Time 16.1 Seconds (9.4-12.1)
[2019-08-18 08:23] LABS: BUN/Creatinine Ratio 10 (6-26); Blood Urea Nitrogen 7 mg/dL (8-23); Calcium 7.7 mg/dL (8.6-10.3); Carbon Dioxide 32 mEq/L (23-29); Chloride 97 mEq/L (98-107); Glucose 261 mg/dL (70-105); Osmolality,Calculated 295 (280-300); Potassium 3.7 mEq/L (3.5-5.1); Sodium 139 mEq/L (136-145); eGFR For African Americans > 60 (> 60); eGFR For Non-African Americans > 60 (> 60)
[2019-08-18] MEDS: Furosemide 40 MG TABLET PO SCH (10:00)
[2019-08-18] MEDS: Cyanocobalamin (B-12) 1,000 MCG TABLET PO SCH (10:00)
[2019-08-18] MEDS: Primidone 50 MG TABLET PO SCH ×2 (10:00→20:53)
[2019-08-18] MEDS: Cholecalciferol (D-3) 1,000 UNIT (25MCG) TABLET PO SCH (10:00)
[2019-08-18] MEDS: Nystatin POWDER 30 GM BOTTLE TP SCH ×3 (10:00→20:55)
[2019-08-18] MEDS: Isosorbide MONOnitrate (24 HR) 30 MG TAB.ER.24H PO SCH (10:00)
[2019-08-18] MEDS: *HR* Digoxin 0.125 MG TABLET PO SCH (10:00)
[2019-08-18] MEDS: hydrOXYzine pamoate 25 MG CAPSULE PO SCH ×3 (10:00→20:53)
[2019-08-18] MEDS: Insulin LISPRO 300 UNITS/3 ML VIAL SQ SCH ×3 (10:22→17:39)
[2019-08-18] MEDS: Budesonide/Formoterol 160/4.5 1 PUFF INH IH SCH ×2 (11:10→20:13)
[2019-08-18] MEDS: *HR* Enoxaparin 100 MG/ML SYRINGE SQ SCH ×2 (11:11→20:54)
[2019-08-18] MEDS: Diltiazem CD (24hr) 180 MG CAPSULE PO SCH ×2 (12:51→20:52)
[2019-08-18] MEDS ORDERED: Ondansetron ODT 4 MG TAB.RAPDIS SL PRN (15:18)
[2019-08-18] MEDS ORDERED: *HR* Warfarin 3 MG TABLET PO ONE (18:00)
[2019-08-18] MEDS ORDERED: Warfarin perPT PO PRN (18:00)
[2019-08-19] MEDS: MetroNIDAZOLE 500 MG/100 ML 500 MG/100 ML BAG IVPB SCH (00:45)
[2019-08-19] MEDS ORDERED: Acetaminophen 325 MG TABLET PO ONE (01:02)
[2019-08-19 02:30] LABS: INR 1.3; Prothrombin Time 14.7 Seconds (9.4-12.1)
[2019-08-19] MEDS: *HR* HYDROcodone/Acet 7.5/325 mg TABLET PO PRN ×3 (04:54→22:59)
[2019-08-19] MEDS: Insulin LISPRO 300 UNITS/3 ML VIAL SQ SCH ×3 (08:31→16:55)
[2019-08-19] MEDS: *HR* Enoxaparin 100 MG/ML SYRINGE SQ SCH ×2 (08:32→20:00)
[2019-08-19] MEDS: *HR* Digoxin 0.125 MG TABLET PO SCH (08:34)
[2019-08-19] MEDS: Cyanocobalamin (B-12) 1,000 MCG TABLET PO SCH (08:34)
[2019-08-19] MEDS: hydrOXYzine pamoate 25 MG CAPSULE PO SCH ×3 (08:34→20:00)
[2019-08-19] MEDS: Furosemide 40 MG TABLET PO SCH (08:35)
[2019-08-19] MEDS: Primidone 50 MG TABLET PO SCH ×2 (08:35→20:00)
[2019-08-19] MEDS: Diltiazem CD (24hr) 180 MG CAPSULE PO SCH ×2 (08:35→20:00)
[2019-08-19] MEDS: Isosorbide MONOnitrate (24 HR) 30 MG TAB.ER.24H PO SCH (08:35)
[2019-08-19] MEDS: Cholecalciferol (D-3) 1,000 UNIT (25MCG) TABLET PO SCH (08:35)
[2019-08-19] MEDS: Nystatin POWDER 30 GM BOTTLE TP SCH ×3 (10:20→20:01)
[2019-08-19] MEDS: Cefdinir 300 MG CAPSULE PO SCH ×2 (10:20→20:00)
[2019-08-19] MEDS: Budesonide/Formoterol 160/4.5 1 PUFF INH IH SCH ×2 (11:22→20:05)
[2019-08-19] MEDS: metroNIDAZOLE 500 MG TABLET PO SCH ×2 (14:29→20:00)
[2019-08-19] MEDS ORDERED: *HR* Warfarin 5 MG TABLET PO ONE (18:00)
[2019-08-20] MEDS: Primidone 50 MG TABLET PO SCH ×2 (07:51→21:38)
[2019-08-20] MEDS: hydrOXYzine pamoate 25 MG CAPSULE PO SCH ×3 (07:51→21:38)
[2019-08-20] MEDS: metroNIDAZOLE 500 MG TABLET PO SCH (07:51)
[2019-08-20] MEDS: Cholecalciferol (D-3) 1,000 UNIT (25MCG) TABLET PO SCH (07:51)
[2019-08-20] MEDS: Diltiazem CD (24hr) 180 MG CAPSULE PO SCH ×2 (07:52→21:38)
[2019-08-20] MEDS: Furosemide 40 MG TABLET PO SCH (07:52)
[2019-08-20] MEDS: Cyanocobalamin (B-12) 1,000 MCG TABLET PO SCH (07:52)
[2019-08-20] MEDS: *HR* Digoxin 0.125 MG TABLET PO SCH (07:52)
[2019-08-20] MEDS: Cefdinir 300 MG CAPSULE PO SCH (07:52)
[2019-08-20] MEDS: Isosorbide MONOnitrate (24 HR) 30 MG TAB.ER.24H PO SCH (07:52)
[2019-08-20] MEDS: *HR* Enoxaparin 100 MG/ML SYRINGE SQ SCH ×2 (07:53→21:38)
[2019-08-20] MEDS: Insulin LISPRO 300 UNITS/3 ML VIAL SQ SCH ×3 (07:53→16:44)
[2019-08-20] MEDS: Nystatin POWDER 30 GM BOTTLE TP SCH ×3 (07:54→21:39)
[2019-08-20] MEDS: Budesonide/Formoterol 160/4.5 1 PUFF INH IH SCH ×2 (07:59→19:52)
[2019-08-20 08:40] LABS: INR 1.2; Prothrombin Time 14.1 Seconds (9.4-12.1)
[2019-08-20] MEDS: *HR* HYDROcodone/Acet 7.5/325 mg TABLET PO PRN ×2 (16:43→23:51)
[2019-08-20] MEDS ORDERED: *HR* Warfarin 5 MG TABLET PO ONE (18:00)
[2019-08-21 05:15] LABS: Hematocrit 38.1 % (35.3-44.9); Hemoglobin 13.1 g/dL (11.5-15.4); Mean Corpuscular HGB Conc 34.4 g/dL (31.6-35.5); Mean Corpuscular Volume 90.3 fL (83.0-100.0); Mean Platelet Volume 9.7 fL (9.4-12.4); Platelet Count 138 K/mcL (140-400); Red Blood Count 4.22 M/mcL (3.82-4.97); Red Cell Distribution Width 12.4 % (11.5-14.5); White Blood Count 5.5 K/mcL (4.3-11.1)
[2019-08-21 05:22] LABS: INR 1.4; Prothrombin Time 15.5 Seconds (9.4-12.1)
[2019-08-21 05:34] LABS: BUN/Creatinine Ratio 20 (6-26); Blood Urea Nitrogen 14 mg/dL (8-23); Calcium 8.3 mg/dL (8.6-10.3); Carbon Dioxide 30 mEq/L (23-29); Chloride 100 mEq/L (98-107); Glucose 197 mg/dL (70-105); Osmolality,Calculated 298 (280-300); Potassium 3.4 mEq/L (3.5-5.1); Sodium 141 mEq/L (136-145); eGFR For African Americans > 60 (> 60); eGFR For Non-African Americans > 60 (> 60)
[2019-08-21] MEDS: Budesonide/Formoterol 160/4.5 1 PUFF INH IH SCH ×2 (07:54→21:22)
[2019-08-21] MEDS: *HR* Digoxin 0.125 MG TABLET PO SCH (08:04)
[2019-08-21] MEDS: Furosemide 40 MG TABLET PO SCH (08:04)
[2019-08-21] MEDS: Isosorbide MONOnitrate (24 HR) 30 MG TAB.ER.24H PO SCH (08:04)
[2019-08-21] MEDS: Cyanocobalamin (B-12) 1,000 MCG TABLET PO SCH (08:04)
[2019-08-21] MEDS: Insulin LISPRO 300 UNITS/3 ML VIAL SQ SCH ×3 (08:04→16:16)
[2019-08-21] MEDS: Cholecalciferol (D-3) 1,000 UNIT (25MCG) TABLET PO SCH (08:04)
[2019-08-21] MEDS: Primidone 50 MG TABLET PO SCH ×2 (08:05→19:59)
[2019-08-21] MEDS: *HR* Enoxaparin 100 MG/ML SYRINGE SQ SCH ×2 (08:05→19:59)
[2019-08-21] MEDS: Nystatin POWDER 30 GM BOTTLE TP SCH ×3 (08:05→20:03)
[2019-08-21] MEDS: Diltiazem CD (24hr) 180 MG CAPSULE PO SCH ×2 (08:05→19:59)
[2019-08-21] MEDS: hydrOXYzine pamoate 25 MG CAPSULE PO SCH ×3 (08:05→19:59)
[2019-08-21] MEDS ORDERED: *HR* Warfarin 5 MG TABLET PO ONE (18:00)
[2019-08-21] MEDS: *HR* HYDROcodone/Acet 7.5/325 mg TABLET PO PRN (19:59)
[2019-08-22] MEDS: *HR* HYDROcodone/Acet 7.5/325 mg TABLET PO PRN ×2 (02:50→21:30)
[2019-08-22 05:06] LABS: INR 1.5; Prothrombin Time 17.5 Seconds (9.4-12.1)
[2019-08-22] MEDS: Cyanocobalamin (B-12) 1,000 MCG TABLET PO SCH (07:48)
[2019-08-22] MEDS: Diltiazem CD (24hr) 180 MG CAPSULE PO SCH ×2 (07:48→21:31)
[2019-08-22] MEDS: *HR* Enoxaparin 100 MG/ML SYRINGE SQ SCH ×2 (07:48→21:29)
[2019-08-22] MEDS: Nystatin POWDER 30 GM BOTTLE TP SCH ×3 (07:49→21:34)
[2019-08-22] MEDS: Isosorbide MONOnitrate (24 HR) 30 MG TAB.ER.24H PO SCH (07:49)
[2019-08-22] MEDS: *HR* Digoxin 0.125 MG TABLET PO SCH (07:49)
[2019-08-22] MEDS: hydrOXYzine pamoate 25 MG CAPSULE PO SCH ×3 (07:49→21:30)
[2019-08-22] MEDS: Primidone 50 MG TABLET PO SCH ×2 (07:49→21:31)
[2019-08-22] MEDS: Cholecalciferol (D-3) 1,000 UNIT (25MCG) TABLET PO SCH (07:49)
[2019-08-22] MEDS: Furosemide 40 MG TABLET PO SCH (07:49)
[2019-08-22] MEDS: Insulin LISPRO 300 UNITS/3 ML VIAL SQ SCH ×3 (07:53→17:37)
[2019-08-22] MEDS: Budesonide/Formoterol 160/4.5 1 PUFF INH IH SCH ×2 (07:56→19:51)
[2019-08-22 16:18] LABS: INR 1.6; Prothrombin Time 17.7 Seconds (9.4-12.1)
[2019-08-22] MEDS ORDERED: *HR* Warfarin 3 MG TABLET PO ONE (18:00)
[2019-08-23 05:48] LABS: Hematocrit 37.9 % (35.3-44.9); Hemoglobin 12.9 g/dL (11.5-15.4); Mean Corpuscular Hemoglobin 30.6 pg (28.0-33.3); Mean Corpuscular Volume 89.8 fL (83.0-100.0); Mean Platelet Volume 9.9 fL (9.4-12.4); Platelet Count 148 K/mcL (140-400); Red Blood Count 4.22 M/mcL (3.82-4.97); Red Cell Distribution Width 12.5 % (11.5-14.5); White Blood Count 6.6 K/mcL (4.3-11.1)
[2019-08-23 05:52] LABS: INR 1.6; Prothrombin Time 18.3 Seconds (9.4-12.1)
[2019-08-23 06:08] LABS: BUN/Creatinine Ratio 27 (6-26); Blood Urea Nitrogen 18 mg/dL (8-23); Calcium 8.8 mg/dL (8.6-10.3); Carbon Dioxide 26 mEq/L (23-29); Chloride 102 mEq/L (98-107); Glucose 222 mg/dL (70-105); Osmolality,Calculated 301 (280-300); Potassium 3.9 mEq/L (3.5-5.1); Sodium 141 mEq/L (136-145); eGFR For African Americans > 60 (> 60); eGFR For Non-African Americans > 60 (> 60)
[2019-08-23] MEDS: Budesonide/Formoterol 160/4.5 1 PUFF INH IH SCH (07:36)
[2019-08-23 07:41] VITALS: BP 126/75
[2019-08-23] MEDS: Diltiazem CD (24hr) 180 MG CAPSULE PO SCH (09:59)
[2019-08-23] MEDS: Cholecalciferol (D-3) 1,000 UNIT (25MCG) TABLET PO SCH (09:59)
[2019-08-23] MEDS: hydrOXYzine pamoate 25 MG CAPSULE PO SCH (10:00)
[2019-08-23] MEDS: Isosorbide MONOnitrate (24 HR) 30 MG TAB.ER.24H PO SCH (10:00)
[2019-08-23] MEDS: Furosemide 40 MG TABLET PO SCH (10:00)
[2019-08-23] MEDS: Cyanocobalamin (B-12) 1,000 MCG TABLET PO SCH (10:00)
[2019-08-23] MEDS: *HR* Digoxin 0.125 MG TABLET PO SCH (10:00)
[2019-08-23] MEDS: Primidone 50 MG TABLET PO SCH (10:00)
[2019-08-23] MEDS: Insulin LISPRO 300 UNITS/3 ML VIAL SQ SCH ×2 (10:00→11:50)
[2019-08-23] MEDS: *HR* Enoxaparin 100 MG/ML SYRINGE SQ SCH (10:05)
[2019-08-23] MEDS ORDERED: *HR* Warfarin 5 MG TABLET PO ONE (18:00)
== END 2019-08-23 13:39 | disposition home health service (06) | DRG 378 ==
LOC: 3ANU 14:33 → EMEROOARM 14:33 → 3ANU 20:54 → SUATTDRO 08-17 19:52
PROVIDERS: ADMIT Internal Medicine; ATTEND Internal Medicine

== ENCOUNTER 2019-09-14 07:55 | Inpatient (IN) ==
[2019-09-14] MEDS ORDERED: Aspirin 81 MG TAB.CHEW PO ONE (08:07)
[2019-09-14] MEDS ORDERED: 0.9 % Sodium Chloride 1,000 ML IVC ONE (08:21)
[2019-09-14 08:30] LABS: Basophils % 0.3 %; Eosinophils % 0.1 %; Hematocrit 41.3 % (35.3-44.9); Hemoglobin 14.4 g/dL (11.5-15.4); Immature Granulocytes % 0.5 % (0-4); Lymphocytes # 0.9 K/mcL (0.6-4.6); Lymphocytes % 6.4 %; Mean Corpuscular HGB Conc 34.9 g/dL (31.6-35.5); Mean Corpuscular Hemoglobin 31.1 pg (28.0-33.3); Mean Corpuscular Volume 89.2 fL (83.0-100.0); Mean Platelet Volume 9.7 fL (9.4-12.4); Monocytes # 0.8 K/mcL (0.0-1.3); Neutrophils # 12.1 K/mcL (1.6-8.9); Platelet Count 137 K/mcL (140-400); Red Blood Count 4.63 M/mcL (3.82-4.97); Segmented Neutrophils % 86.7 %
[2019-09-14 08:37] LABS: Activated Partial Thrombo Time 49.1 Seconds (26.0-36.0)
[2019-09-14 08:41] LABS: INR 4.5
[2019-09-14 08:54] LABS: BUN/Creatinine Ratio 12 (6-26); Blood Urea Nitrogen 7 mg/dL (8-23); Calcium 9.2 mg/dL (8.6-10.3); Carbon Dioxide 23 mEq/L (23-29); Chloride 101 mEq/L (98-107); Glucose 226 mg/dL (70-105); Osmolality,Calculated 293 (280-300); Potassium 4.2 mEq/L (3.5-5.1); Sodium 139 mEq/L (136-145); Troponin I < 0.03 ng/mL (< 0.04); eGFR For African Americans > 60 (> 60); eGFR For Non-African Americans > 60 (> 60)
[2019-09-14] MEDS ORDERED: cefTRIAXone 2,000 MG in Water for inj. (sterile) 20 ML IVP ONE (09:34)
[2019-09-14] MEDS ORDERED: Azithromycin 500 MG in 0.9 % Sodium Chloride 250 ML IVPB ONE (09:34)
[2019-09-14] MEDS ORDERED: Ondansetron 4 MG/2 ML VIAL IVP PRN (10:36)
[2019-09-14] MEDS ORDERED: Naloxone 0.4 MG/ML INJ IVP PRN (10:36)
[2019-09-14] MEDS: Ringers Solution, Lactated 1,000 ML IVC SCH ×2 (12:17→21:09)
[2019-09-14] MEDS: Acetaminophen 325 MG TABLET PO PRN (15:08)
[2019-09-14] MEDS: Piperacillin/Tazobactam 3.375 GM in 0.9 % Sodium Chloride Mini Bag 100 ML IVPB SCH (16:34)
[2019-09-14] MEDS ORDERED: Dextrose Gel 15 GM/37.5 ML TUBE PO PRN ×2 (16:38)
[2019-09-14] MEDS ORDERED: *HR* Dextrose 50 % in Water (Syg) 50 ML SYRINGE IVP PRN (16:38)
[2019-09-14] MEDS ORDERED: D5% in Water 1,000 ML IVC PRN (16:38)
[2019-09-14] MEDS: Insulin LISPRO 300 UNITS/3 ML VIAL SQ SCH (18:15)
[2019-09-14] MEDS ORDERED: hydrOXYzine pamoate 25 MG CAPSULE PO PRN (18:22)
[2019-09-14] MEDS ORDERED: Metoprolol XL (24 HR) Succ 50 MG TAB.ER.24H PO ONE (18:26)
[2019-09-14] MEDS: DilTIAZem CD (24hr) 180 MG CAP.ER.24H PO SCH (20:57)
[2019-09-14] MEDS: Insulin DETEMIR 100 UNIT/ML X5UNITS SQ SCH (20:58)
[2019-09-14] MEDS: *HR* HYDROcodone/Acet 7.5/325 mg TABLET PO PRN (21:08)
[2019-09-14 22:57] LABS: Bilirubin,Urine Negative (Negative); Blood,Urine Negative (Negative); Clarity,Urine Clear (Clear); Color,Urine Yellow (Yellow); Glucose,Urine (UA) Normal (Normal); Ketones,Urine Negative (Negative); Leukocyte Esterase,Urine Trace (Negative); Nitrite,Urine Negative (Negative); Protein,Urine Negative (Neg-Trace); Specific Gravity,Urine 1.011 (1.010-1.025); Urobilinogen,Urine Normal (Normal)
[2019-09-14 22:59] LABS: Bacteria,Urine None Seen per hpf (None-Few); Hyaline Casts,Urine None Seen per lpf (None-Few); RBC,Urine 0-3 per hpf (0-3); Squamous Epithelial Cell,Urine Many per lpf (None-Few)
[2019-09-15] MEDS: Piperacillin/Tazobactam 3.375 GM in 0.9 % Sodium Chloride Mini Bag 100 ML IVPB SCH ×4 (00:12→23:17)
[2019-09-15] MEDS: Acetaminophen 325 MG TABLET PO PRN (01:52)
[2019-09-15 02:47] LABS: INR 3.6; Prothrombin Time 40.7 Seconds (9.4-12.1)
[2019-09-15 02:58] LABS: Basophils # 0.1 K/mcL (0.0-0.2); Basophils % 0.4 %; Eosinophils # 0.2 K/mcL (0.0-0.6); Eosinophils % 1.2 %; Hematocrit 38.3 % (35.3-44.9); Immature Granulocytes % 0.7 % (0-4); Lymphocytes # 2.6 K/mcL (0.6-4.6); Lymphocytes % 18.9 %; Mean Corpuscular HGB Conc 33.2 g/dL (31.6-35.5); Mean Corpuscular Hemoglobin 30.4 pg (28.0-33.3); Mean Corpuscular Volume 91.6 fL (83.0-100.0); Mean Platelet Volume 10.2 fL (9.4-12.4); Monocytes % 6.9 %; Neutrophils # 9.9 K/mcL (1.6-8.9); Platelet Count 134 K/mcL (140-400); Red Blood Count 4.18 M/mcL (3.82-4.97); Red Cell Distribution Width 12.9 % (11.5-14.5); Segmented Neutrophils % 71.9 %; White Blood Count 13.8 K/mcL (4.3-11.1)
[2019-09-15 02:59] LABS: Hemoglobin 12.7 g/dL (11.5-15.4)
[2019-09-15 03:02] LABS: BUN/Creatinine Ratio 13 (6-26); Blood Urea Nitrogen 7 mg/dL (8-23); Calcium 8.9 mg/dL (8.6-10.3); Carbon Dioxide 28 mEq/L (23-29); Chloride 104 mEq/L (98-107); Glucose 107 mg/dL (70-105); Magnesium 1.6 mg/dL (1.6-2.6); Osmolality,Calculated 286 (280-300); Potassium 3.8 mEq/L (3.5-5.1); Sodium 139 mEq/L (136-145); eGFR For African Americans > 60 (> 60); eGFR For Non-African Americans > 60 (> 60)
[2019-09-15] MEDS: Ringers Solution, Lactated 1,000 ML IVC SCH ×2 (08:01→19:20)
[2019-09-15] MEDS: Insulin LISPRO 300 UNITS/3 ML VIAL SQ SCH ×3 (08:17→18:16)
[2019-09-15] MEDS: DilTIAZem CD (24hr) 180 MG CAP.ER.24H PO SCH ×2 (08:26→19:19)
[2019-09-15] MEDS: Furosemide 40 MG TABLET PO SCH (08:26)
[2019-09-15] MEDS: Metoprolol XL (24 HR) Succ 50 MG TAB.ER.24H PO SCH (08:27)
[2019-09-15] MEDS: Isosorbide MONOnitrate (24 HR) 30 MG TAB.ER.24H PO SCH (08:27)
[2019-09-15] MEDS ORDERED: Warfarin perPT PO PRN (18:00)
[2019-09-15] MEDS: Insulin DETEMIR 100 UNIT/ML X5UNITS SQ SCH (20:47)
[2019-09-15] MEDS ORDERED: Cholestyramine 4 GM POWD.PACK PO PRN (20:53)
[2019-09-15] MEDS: *HR* HYDROcodone/Acet 7.5/325 mg TABLET PO PRN (22:32)
[2019-09-16 02:36] LABS: Prothrombin Time 22.8 Seconds (9.4-12.1)
[2019-09-16] MEDS: *HR* HYDROcodone/Acet 7.5/325 mg TABLET PO PRN (05:33)
[2019-09-16] MEDS: Ringers Solution, Lactated 1,000 ML IVC SCH (05:33)
[2019-09-16] MEDS: DilTIAZem CD (24hr) 180 MG CAP.ER.24H PO SCH (07:37)
[2019-09-16] MEDS: Metoprolol XL (24 HR) Succ 50 MG TAB.ER.24H PO SCH (07:37)
[2019-09-16] MEDS: Isosorbide MONOnitrate (24 HR) 30 MG TAB.ER.24H PO SCH (07:37)
[2019-09-16] MEDS: Piperacillin/Tazobactam 3.375 GM in 0.9 % Sodium Chloride Mini Bag 100 ML IVPB SCH (07:38)
[2019-09-16] MEDS: Furosemide 40 MG TABLET PO SCH (07:38)
[2019-09-16] MEDS: Insulin LISPRO 300 UNITS/3 ML VIAL SQ SCH (08:45)
[2019-09-16] MEDS ORDERED: Cholecalciferol (D-3) 1,000 UNIT (25MCG) TABLET PO SCH (09:00)
[2019-09-16 09:31] LABS: Hematocrit 34.7 % (35.3-44.9); Hemoglobin 11.7 g/dL (11.5-15.4); Mean Corpuscular HGB Conc 33.7 g/dL (31.6-35.5); Mean Corpuscular Hemoglobin 30.6 pg (28.0-33.3); Mean Corpuscular Volume 90.8 fL (83.0-100.0); Mean Platelet Volume 9.6 fL (9.4-12.4); Platelet Count 158 K/mcL (140-400); Red Blood Count 3.82 M/mcL (3.82-4.97); Red Cell Distribution Width 12.7 % (11.5-14.5); White Blood Count 8.9 K/mcL (4.3-11.1)
[2019-09-16 09:54] LABS: BUN/Creatinine Ratio 18 (6-26); Blood Urea Nitrogen 11 mg/dL (8-23); Calcium 8.6 mg/dL (8.6-10.3); Carbon Dioxide 29 mEq/L (23-29); Chloride 99 mEq/L (98-107); Glucose 224 mg/dL (70-105); Osmolality,Calculated 298 (280-300); Potassium 3.8 mEq/L (3.5-5.1); Sodium 141 mEq/L (136-145); eGFR For African Americans > 60 (> 60); eGFR For Non-African Americans > 60 (> 60)
[2019-09-16 10:38] VITALS: BP 115/70
[2019-09-16] MEDS ORDERED: Aminoglycoside Consult 1 EACH MC ONE (12:25)
== END 2019-09-16 12:26 | disposition home health service (06) | DRG 871 ==
LOC: SUATTDRO → EMEROOARM 07:55 → 3NENU 07:55 → SUATTDRO 10:34 → 3NENU 11:02
PROVIDERS: ADMIT Pharmacist; ATTEND Family Medicine

== ENCOUNTER 2020-11-09 09:59 | Observation (INO) ==
[2020-11-09] MEDS ORDERED: Nitroglycerin 1 INCH/GM PACKET TP ONE (10:20)
[2020-11-09] MEDS ORDERED: Ondansetron 4 MG/2 ML VIAL IVP ONE (10:22)
[2020-11-09 11:17] LABS: Basophils % 0.5 %; Eosinophils # 0.2 K/mcL (0.0-0.6); Eosinophils % 2.8 %; Hematocrit 39.6 % (35.3-44.9); Hemoglobin 12.9 g/dL (11.5-15.4); Immature Granulocytes % 0.3 % (0-4); Lymphocytes # 1.6 K/mcL (0.6-4.6); Lymphocytes % 26.3 %; Mean Corpuscular HGB Conc 32.6 g/dL (31.6-35.5); Mean Corpuscular Hemoglobin 29.9 pg (28.0-33.3); Mean Corpuscular Volume 91.9 fL (83.0-100.0); Mean Platelet Volume 9.5 fL (9.4-12.4); Monocytes # 0.4 K/mcL (0.0-1.3); Monocytes % 7.2 %; Neutrophils # 3.8 K/mcL (1.6-8.9); Platelet Count 146 K/mcL (140-400); Red Blood Count 4.31 M/mcL (3.82-4.97); Red Cell Distribution Width 12.4 % (11.5-14.5); Segmented Neutrophils % 62.9 %; White Blood Count 6.1 K/mcL (4.3-11.1)
[2020-11-09 11:29] LABS: Prothrombin Time 33.2 Seconds (9.4-12.1)
[2020-11-09 11:32] LABS: Activated Partial Thrombo Time 40.3 Seconds (26.0-36.0)
[2020-11-09 11:38] LABS: Alanine Aminotransferase 19 Units/L (7-52); Albumin 4.2 g/dL (3.5-5.7); Albumin/Globulin Ratio 1.4 (1.1-2.2); Alkaline Phosphatase 57 Units/L (34-104); Aspartate Amino Transferase 25 Units/L (13-39); BUN/Creatinine Ratio 10 (6-26); Bilirubin,Direct 0.1 mg/dL (0.0-0.2); Bilirubin,Indirect 0.3 mg/dL (0.0-1.0); Bilirubin,Total 0.4 mg/dL (0.3-1.0); Blood Urea Nitrogen 6 mg/dL (8-23); Calcium 8.5 mg/dL (8.6-10.3); Carbon Dioxide 27 mEq/L (23-29); Chloride 98 mEq/L (98-107); Globulin 3.1 g/dL (2.4-3.5); Glucose 186 mg/dL (70-105); Lipase 11 Units/L (11-82); Osmolality,Calculated 292 (280-300); Potassium 3.7 mEq/L (3.5-5.1); Sodium 140 mEq/L (136-145); Total Protein 7.3 g/dL (6.4-8.9); Troponin I 0.03 ng/mL (< 0.04); eGFR For African Americans > 60 (> 60); eGFR For Non-African Americans > 60 (> 60)
[2020-11-09 12:46] LABS: Bilirubin,Urine Negative (Negative); Blood,Urine Negative (Negative); Clarity,Urine Clear (Clear); Color,Urine Colorless (Yellow); Glucose,Urine (UA) Normal (Normal); Hyaline Casts,Urine Few per lpf (None Seen); Ketones,Urine Negative (Negative); Leukocyte Esterase,Urine Small (Negative); Nitrite,Urine Negative (Negative); Protein,Urine Negative (Neg-Trace); RBC,Urine 0-3 per hpf (0-3); Specific Gravity,Urine 1.007 (1.010-1.025); Squamous Epithelial Cell,Urine Few per hpf (None-Few); Urobilinogen,Urine Normal (Normal); WBC,Urine 0-3 per hpf (0-3)
[2020-11-09] MEDS ORDERED: Naloxone 0.4 MG/ML INJ IVP PRN (15:53)
[2020-11-09] MEDS ORDERED: Ondansetron 4 MG/2 ML VIAL IVP PRN (15:53)
[2020-11-09] MEDS ORDERED: Isovue-370 500 ML BOTTLE IVP ONE (18:41)
[2020-11-09] MEDS ORDERED: Nitroglycerin 0.4 MG TAB.SUBL SL PRN (18:50)
[2020-11-09] MEDS ORDERED: Ipratropium/Albuterol Neb 3 ML IH PRN (18:51)
[2020-11-09] MEDS ORDERED: *HR* Dextrose 50 % in Water (Vial) 50 ML VIAL IVP PRN (18:52)
[2020-11-09] MEDS ORDERED: Dextrose Gel 15 GM/37.5 ML TUBE PO PRN ×2 (18:52)
[2020-11-09] MEDS ORDERED: D5% in Water 1,000 ML IVC PRN (18:52)
[2020-11-09] MEDS: Nystatin POWDER 30 GM BOTTLE TP SCH (20:32)
[2020-11-09] MEDS ORDERED: Insulin LISPRO 300 UNITS/3 ML VIAL SUBQ SCH (21:00)
[2020-11-09] MEDS: Gabapentin 100 MG CAPSULE PO SCH (23:07)
[2020-11-10] MEDS: Insulin LISPRO 300 UNITS/3 ML VIAL SUBQ SCH ×3 (09:08→18:13)
[2020-11-10] MEDS: Gabapentin 100 MG CAPSULE PO SCH ×3 (09:08→19:54)
[2020-11-10] MEDS: Nystatin POWDER 30 GM BOTTLE TP SCH ×3 (09:09→19:59)
[2020-11-10 11:07] LABS: White Blood Count 5.8 K/mcL (4.3-11.1)
[2020-11-10 11:08] LABS: Basophils % 0.5 %; Eosinophils # 0.2 K/mcL (0.0-0.6); Eosinophils % 2.6 %; Hematocrit 40.5 % (35.3-44.9); Hemoglobin 13.1 g/dL (11.5-15.4); Immature Granulocytes % 0.3 % (0-4); Lymphocytes # 1.5 K/mcL (0.6-4.6); Lymphocytes % 24.9 %; Mean Corpuscular HGB Conc 32.3 g/dL (31.6-35.5); Mean Corpuscular Hemoglobin 29.7 pg (28.0-33.3); Mean Corpuscular Volume 91.8 fL (83.0-100.0); Mean Platelet Volume 9.2 fL (9.4-12.4); Monocytes # 0.4 K/mcL (0.0-1.3); Monocytes % 6.5 %; Neutrophils # 3.8 K/mcL (1.6-8.9); Platelet Count 151 K/mcL (140-400); Red Blood Count 4.41 M/mcL (3.82-4.97); Red Cell Distribution Width 12.6 % (11.5-14.5); Segmented Neutrophils % 65.2 %
[2020-11-10 11:15] LABS: INR 2.4; Prothrombin Time 27.6 Seconds (9.4-12.1)
[2020-11-10 11:26] LABS: Estimated Average Glucose 171 mg/dl; Hemoglobin A1C 7.6 %
[2020-11-10 11:29] LABS: BUN/Creatinine Ratio 13 (6-26); Blood Urea Nitrogen 8 mg/dL (8-23); Calcium 8.6 mg/dL (8.6-10.3); Carbon Dioxide 30 mEq/L (23-29); Chloride 98 mEq/L (98-107); Glucose 191 mg/dL (70-105); Magnesium 1.3 mg/dL (1.6-2.6); Osmolality,Calculated 291 (280-300); Potassium 3.6 mEq/L (3.5-5.1); Sodium 139 mEq/L (136-145); eGFR For African Americans > 60 (> 60); eGFR For Non-African Americans > 60 (> 60)
[2020-11-10] MEDS ORDERED: *HR* HYDROcodone/Acet 7.5/325 mg TABLET PO PRN (16:10)
[2020-11-10] MEDS: Isosorbide MONOnitrate (24 HR) 30 MG TAB.ER.24H PO SCH (18:12)
[2020-11-10] MEDS: *HR* Digoxin 0.125 MG TABLET PO SCH (18:12)
[2020-11-10] MEDS: Insulin DETEMIR 100 UNIT/ML X5UNITS SUBQ SCH (19:54)
[2020-11-10] MEDS: Famotidine 20 MG TABLET PO SCH (19:54)
[2020-11-10] MEDS: Primidone 50 MG TABLET PO SCH (19:54)
[2020-11-11 06:29] LABS: Basophils % 0.3 %; Eosinophils # 0.2 K/mcL (0.0-0.6); Eosinophils % 3.1 %; Hematocrit 36.5 % (35.3-44.9); Immature Granulocytes % 0.2 % (0-4); Lymphocytes # 1.7 K/mcL (0.6-4.6); Lymphocytes % 28.9 %; Mean Corpuscular HGB Conc 32.9 g/dL (31.6-35.5); Mean Corpuscular Hemoglobin 30.8 pg (28.0-33.3); Mean Corpuscular Volume 93.8 fL (83.0-100.0); Mean Platelet Volume 9.6 fL (9.4-12.4); Monocytes # 0.5 K/mcL (0.0-1.3); Neutrophils # 3.4 K/mcL (1.6-8.9); Platelet Count 134 K/mcL (140-400); Red Blood Count 3.89 M/mcL (3.82-4.97); Red Cell Distribution Width 12.5 % (11.5-14.5); Segmented Neutrophils % 59.5 %; White Blood Count 5.8 K/mcL (4.3-11.1)
[2020-11-11 06:35] LABS: INR 1.8; Prothrombin Time 20.5 Seconds (9.4-12.1)
[2020-11-11 06:51] LABS: BUN/Creatinine Ratio 24 (6-26); Blood Urea Nitrogen 13 mg/dL (8-23); Calcium 9.1 mg/dL (8.6-10.3); Carbon Dioxide 30 mEq/L (23-29); Chloride 101 mEq/L (98-107); Glucose 199 mg/dL (70-105); Magnesium 1.8 mg/dL (1.6-2.6); Osmolality,Calculated 296 (280-300); Potassium 3.5 mEq/L (3.5-5.1); Sodium 140 mEq/L (136-145); eGFR For African Americans > 60 (> 60); eGFR For Non-African Americans > 60 (> 60)
[2020-11-11] MEDS: Insulin LISPRO 300 UNITS/3 ML VIAL SUBQ SCH ×3 (08:26→17:16)
[2020-11-11] MEDS: Isosorbide MONOnitrate (24 HR) 30 MG TAB.ER.24H PO SCH (08:32)
[2020-11-11] MEDS: Gabapentin 100 MG CAPSULE PO SCH ×3 (08:33→20:48)
[2020-11-11] MEDS: Metoprolol XL (24 HR) Succ 50 MG TAB.ER.24H PO SCH (08:33)
[2020-11-11] MEDS: *HR* Digoxin 0.125 MG TABLET PO SCH (08:33)
[2020-11-11] MEDS: Primidone 50 MG TABLET PO SCH ×2 (08:33→20:48)
[2020-11-11] MEDS: Furosemide 40 MG TABLET PO SCH (08:33)
[2020-11-11] MEDS: Nystatin POWDER 30 GM BOTTLE TP SCH ×3 (08:40→20:54)
[2020-11-11 11:05] LABS: Adenovirus Not Detected (Not Detect); Coronavirus 229E Not Detected (Not Detect); Coronavirus HKU1 Not Detected (Not Detect); Coronavirus NL63 Not Detected (Not Detect); Coronavirus OC43 Not Detected (Not Detect)
[2020-11-11 11:06] LABS: Bordetella Pertussis Not Detected (Not Detect); Chlamydophila pneumoniae Not Detected (Not Detect); Human Metapneumovirus Not Detected (Not Detect); Human Rhinovirus/Enterovirus Not Detected (Not Detect); Influenza A Subtype 2009 H1 Not Detected (Not Detect); Influenza B Not Detected (Not Detect); Mycoplasma pneumoniae Not Detected (Not Detect); Parainfluenza Virus 1 Not Detected (Not Detect); Parainfluenza Virus 2 Not Detected (Not Detect); Parainfluenza Virus 3 Not Detected (Not Detect); Parainfluenza Virus 4 Not Detected (Not Detect); Respiratory Syncytial Virus Not Detected (Not Detect); SARS-CoV-2 Not Detected (Not Detect)
[2020-11-11] MEDS ORDERED: Lidocaine -MPF 2% 2 ML VIAL ONE (11:58)
[2020-11-11] MEDS ORDERED: E-Z-HD (BARIUM SULF) SUSPENSION PO ONE (16:05)
[2020-11-11] MEDS ORDERED: E-Z-PAQUE (BARIUM SULF) SUSP 1 BOTTLE PO ONE (16:05)
[2020-11-11] MEDS ORDERED: Simethicone/Sodium Bic/Citr Ac 1 EACH GRAN.EF.PK PO ONE (16:05)
[2020-11-11] MEDS: Famotidine 20 MG TABLET PO SCH (20:48)
[2020-11-11] MEDS: Insulin DETEMIR 100 UNIT/ML X5UNITS SUBQ SCH (20:48)
[2020-11-12 06:09] LABS: INR 1.5; Prothrombin Time 17.2 Seconds (9.4-12.1)
[2020-11-12 07:07] VITALS: BP 131/73
[2020-11-12] MEDS: Gabapentin 100 MG CAPSULE PO SCH (08:00)
[2020-11-12] MEDS: Metoprolol XL (24 HR) Succ 50 MG TAB.ER.24H PO SCH (08:00)
[2020-11-12] MEDS: Furosemide 40 MG TABLET PO SCH (08:01)
[2020-11-12] MEDS: Nystatin POWDER 30 GM BOTTLE TP SCH (08:01)
[2020-11-12] MEDS: *HR* Digoxin 0.125 MG TABLET PO SCH (08:01)
[2020-11-12] MEDS: Primidone 50 MG TABLET PO SCH (08:01)
[2020-11-12] MEDS: Isosorbide MONOnitrate (24 HR) 30 MG TAB.ER.24H PO SCH (08:01)
[2020-11-12] MEDS: Insulin LISPRO 300 UNITS/3 ML VIAL SUBQ SCH ×2 (08:02→11:40)
[2020-11-12] MEDS ORDERED: *HR* Warfarin 5 MG TABLET PO ONE (18:00)
[2020-11-12] MEDS ORDERED: Warfarin perPT PO PRN (18:00)
== END 2020-11-12 11:40 | disposition home health service (06) ==
LOC: EMEROOARM 09:59 → 3BNU 09:59 → SUATTDRO 15:58 → 3BNU 16:58
PROVIDERS: ADMIT Pharmacist; ATTEND Internal Medicine

== ENCOUNTER 2022-04-04 12:30 | Observation (INO) ==
[2022-04-04 13:36] LABS: Bilirubin,Urine Negative (Negative); Blood,Urine Negative (Negative); Clarity,Urine Clear (Clear); Color,Urine Colorless (Yellow); Glucose,Urine (UA) >=1000 mg/dL (Normal); Ketones,Urine Negative (Negative); Leukocyte Esterase,Urine Negative (Negative); Nitrite,Urine Negative (Negative); PH,Urine 5.5 pH Units (5.0-8.0); Protein,Urine Negative (Neg-Trace); RBC,Urine 0-3 per hpf (0-3); Squamous Epithelial Cell,Urine Few per hpf (None-Few); Urobilinogen,Urine Normal (Normal)
[2022-04-04] MEDS ORDERED: Iopamidol - 370 500 ML MLS IVP ONE (13:43)
[2022-04-04 14:15] LABS: Basophils # 0.1 K/mcL (0.0-0.2); Basophils % 0.5 %; Eosinophils # 0.2 K/mcL (0.0-0.6); Eosinophils % 1.8 %; Hematocrit 38.4 % (35.3-44.9); Hemoglobin 12.9 g/dL (11.5-15.4); Immature Granulocytes % 0.6 % (0-4); Lymphocytes # 1.8 K/mcL (0.6-4.6); Mean Corpuscular HGB Conc 33.6 g/dL (31.6-35.5); Mean Corpuscular Volume 89.3 fL (83.0-100.0); Mean Platelet Volume 9.5 fL (9.4-12.4); Monocytes # 0.8 K/mcL (0.0-1.3); Monocytes % 7.8 %; Neutrophils # 7.2 K/mcL (1.6-8.9); Platelet Count 163 K/mcL (140-400); Red Cell Distribution Width 12.9 % (11.5-14.5); Segmented Neutrophils % 71.3 %; White Blood Count 10.1 K/mcL (4.3-11.1)
[2022-04-04 14:23] LABS: INR 1.5
[2022-04-04 14:41] LABS: Alanine Aminotransferase 14 Units/L (7-52); Albumin 3.8 g/dL (3.5-5.7); Albumin/Globulin Ratio 1.2 (1.1-2.2); Alkaline Phosphatase 70 Units/L (34-104); Aspartate Amino Transferase 13 Units/L (13-39); BUN/Creatinine Ratio 18 (6-26); Bilirubin,Direct 0.1 mg/dL (0.0-0.2); Bilirubin,Indirect 0.5 mg/dL (0.0-1.0); Bilirubin,Total 0.6 mg/dL (0.3-1.0); Blood Urea Nitrogen 14 mg/dL (8-23); Calcium 9.1 mg/dL (8.6-10.3); Carbon Dioxide 30 mEq/L (23-29); Chloride 87 mEq/L (98-107); Globulin 3.2 g/dL (2.4-3.5); Glucose 561 mg/dL (70-105); Lipase 38 Units/L (11-82); Magnesium 1.9 mg/dL (1.6-2.6); Osmolality,Calculated 290 (280-300); Potassium 4.4 mEq/L (3.5-5.1); Sodium 127 mEq/L (136-145); Troponin I < 0.03 ng/mL (< 0.04)
[2022-04-04 16:13] LABS: VBG HCO3 31 mEq/L (21-27); VBG PCO2 52 mmHg (41-51); VBG PH 7.38 pH Units (7.32-7.42); VBG PO2 83 mmHg (25-50)
[2022-04-04] MEDS ORDERED: cefTRIAXone 1,000 MG in Water for inj. (sterile) 10 ML IVP ONE (16:41)
[2022-04-04] MEDS ORDERED: Dextrose Gel 15 GM/37.5 ML TUBE PO PRN ×4 (17:28→20:12)
[2022-04-04] MEDS ORDERED: *HR* Dextrose 50 % in Water (Syg) 50 ML SYRINGE IVP PRN ×2 (17:28→20:12)
[2022-04-04] MEDS ORDERED: Acetaminophen 325 MG TABLET PO PRN (17:28)
[2022-04-04] MEDS ORDERED: D5% in Water 1,000 ML IVC PRN ×2 (17:28→20:12)
[2022-04-04] MEDS ORDERED: Naloxone 0.4 MG/ML INJ IVP PRN (17:28)
[2022-04-04] MEDS ORDERED: Ondansetron 4 MG/2 ML VIAL IVP PRN (17:28)
[2022-04-04] MEDS ORDERED: 0.9 % Sodium Chloride 1,000 ML IVC ONE (17:32)
[2022-04-04] MEDS: Insulin DETEMIR 100 UNIT/ML X5UNITS SUBQ SCH (20:12)
[2022-04-04] MEDS: Insulin LISPRO 300 UNITS/3 ML VIAL SUBQ SCH (20:24)
[2022-04-04] MEDS: *HR* OxyCODONE Immed Rel 5 MG TABLET PO PRN (20:25)
[2022-04-05 03:06] LABS: Basophils % 0.4 %; Eosinophils # 0.2 K/mcL (0.0-0.6); Eosinophils % 1.9 %; Hematocrit 37.8 % (35.3-44.9); Hemoglobin 12.6 g/dL (11.5-15.4); Immature Granulocytes % 0.4 % (0-4); Lymphocytes # 1.7 K/mcL (0.6-4.6); Lymphocytes % 18.9 %; Mean Corpuscular HGB Conc 33.3 g/dL (31.6-35.5); Mean Platelet Volume 9.2 fL (9.4-12.4); Monocytes # 0.7 K/mcL (0.0-1.3); Monocytes % 7.7 %; Neutrophils # 6.4 K/mcL (1.6-8.9); Platelet Count 145 K/mcL (140-400); Segmented Neutrophils % 70.7 %; White Blood Count 9.1 K/mcL (4.3-11.1)
[2022-04-05 03:13] LABS: INR 1.5; Prothrombin Time 16.4 Seconds (9.4-12.1)
[2022-04-05 03:26] LABS: Calcium 8.7 mg/dL (8.6-10.3); Magnesium 1.9 mg/dL (1.6-2.6); Phosphorous 3.3 mg/dL (2.7-4.5); Potassium 3.6 mEq/L (3.5-5.1)
[2022-04-05] MEDS: Insulin DETEMIR 100 UNIT/ML X5UNITS SUBQ SCH ×2 (08:08→21:10)
[2022-04-05] MEDS: Insulin LISPRO 300 UNITS/3 ML VIAL SUBQ SCH ×4 (08:09→21:13)
[2022-04-05] MEDS: Gabapentin 100 MG CAPSULE PO SCH (12:21)
[2022-04-05] MEDS: *HR* Digoxin 0.125 MG TABLET PO SCH (12:21)
[2022-04-05] MEDS: Metoprolol XL (24 HR) Succ 50 MG TAB.ER.24H PO SCH (12:21)
[2022-04-05] MEDS ORDERED: cefTRIAXone 1,000 MG in 0.9 % Sodium Chloride 10 ML IVP SCH (17:00)
[2022-04-05] MEDS: *HR* OxyCODONE Immed Rel 5 MG TABLET PO PRN (17:51)
[2022-04-05] MEDS ORDERED: Warfarin perPT PO PRN (18:00)
[2022-04-05] MEDS ORDERED: *HR* Warfarin 2.5 MG TABLET PO ONE (18:00)
[2022-04-06] MEDS: *HR* HYDROcodone/Acet 5/325 mg TABLET PO PRN ×2 (01:42→09:02)
[2022-04-06 02:41] LABS: INR 1.4; Prothrombin Time 15.4 Seconds (9.4-12.1)
[2022-04-06] MEDS: Gabapentin 100 MG CAPSULE PO SCH (09:02)
[2022-04-06] MEDS: Metoprolol XL (24 HR) Succ 50 MG TAB.ER.24H PO SCH (09:02)
[2022-04-06] MEDS: Insulin LISPRO 300 UNITS/3 ML VIAL SUBQ SCH (09:03)
[2022-04-06] MEDS: *HR* Digoxin 0.125 MG TABLET PO SCH (09:03)
[2022-04-06] MEDS: Insulin DETEMIR 100 UNIT/ML X5UNITS SUBQ SCH (09:03)
[2022-04-06 10:29] VITALS: BP 135/83; PULSE 92; TEMP 98.1; O2SAT 97
[2022-04-06] MEDS ORDERED: *HR* Warfarin 3 MG TABLET PO ONE (18:00)
== END 2022-04-06 12:26 | disposition home or self-care (01) ==
LOC: EMEROOARM 12:30 → 3BNU 12:30 → SUATTDRO 17:29 → 3BNU 17:56
PROVIDERS: ADMIT Internal Medicine; ATTEND Internal Medicine